=== PATIENT | female | born 1955 | race Caucasian/White ===

== ENCOUNTER 2020-07-08 12:03 | Outpatient (REF) | payer MEDICARE, SELFPAY | END 2020-07-08 12:04 | disposition home or self-care (01) | LOC: HO.HMGCLDS 12:03 | PROVIDERS: Visit Provider Internal Medicine | DX: Z20.822 Contact with and (suspected) exposure to COVID-19 (principal) | CPT/HCPCS: 36415; C9803; U0003 ==

== ENCOUNTER 2020-09-01 08:27 | Outpatient (REF) | payer MEDICARE, SELFPAY ==
[2020-09-01 11:29] LABS: MANUAL DIFF FLAG NO
[2020-09-01 11:37] LABS: Basophils Percent Auto 0.8 % (0-2); Eosinophils Absolute Auto 0.1 X10*3/uL (0.0-0.4); Eosinophils Percent Auto 1.4 % (0-4); Hematocrit 41.3 % (37-47); Hemoglobin 13.3 g/dl (12.0-16.0); Imm Gran Abs Auto 0.01 X10*3/uL (0.00-0.03); Imm Gran Pct Auto 0.2 % (0.0-0.4); Lymphocytes Absolute Auto 1.9 X10*3/uL (1.2-4.9); Lymphocytes Percent Auto 39.5 % (20-40); Mean Corpuscular HGB Conc 32.2 g/dl (31.0-35.0); Mean Corpuscular Hemoglobin 29.2 pg (27.0-33.0); Mean Corpuscular Volume 90.6 fL (80-98); Mean Platelet Volume 10.9 fL (9.4-12.3); Monocytes Absolute Auto 0.4 X10*3/uL (0.1-1.2); Monocytes Percent Auto 7.8 % (2-11); Neutrophils Absolute Auto 2.5 X10*3/uL (2.0-8.3); Neutrophils Percent Auto 50.3 % (45-73); Platelet Count 291 X10*3/uL (160-400); Red Blood Count 4.56 X10*6/uL (4.20-5.50); Red Cell Distribution Width 13.7 % (11.0-16.0); White Blood Count 4.9 X10*3/uL (4.8-10.8)
[2020-09-01 11:57] LABS: Anion Gap 11 (12-20); Blood Urea Nitrogen 14 mg/dL (9-16); Calcium 9.3 mg/dL (8.4-10.2); Carbon Dioxide 27 mmol/L (22-29); Chloride 106 mmol/L (96-108); Cholesterol 200 mg/dL; Estimated Glomerular Filt Rate > 60; Glucose Fasting 84 mg/dL (60-99); HDL Cholesterol 69 mg/dL; LDL Cholesterol Calculated 112 mg/dl; Potassium 4.3 mmol/L (3.3-5.1); Sodium 140 mmol/L (135-145); Triglycerides 96 mg/dL
[2020-09-06 06:41] LABS: Vitamin D 25-OH, D2 <4 ng/mL; Vitamin D 25-OH, D3 33 ng/mL; Vitamin D 25-OH, Total 33 ng/mL (30-100)
== END 2020-09-01 08:28 | disposition home or self-care (01) ==
LOC: HO.HMGCLDS 08:27
PROVIDERS: PCP Internal Medicine; Visit Provider Internal Medicine
DX: E55.9 Vitamin D deficiency, unspecified (principal); E78.9 Disorder of lipoprotein metabolism, unspecified; F33.9 Major depressive disorder, recurrent, unspecified; G89.29 Other chronic pain; I10 Essential (primary) hypertension; M54.9 Dorsalgia, unspecified; R42 Dizziness and giddiness; Z91.09 Other allergy status, other than to drugs and biological substances
CPT/HCPCS: 36415; 80048; 80061; 82306; 85025

== ENCOUNTER → 2020-11-08 09:42 | Outpatient (BNVA) | payer MEDICARE, SELFPAY | PROVIDERS: PCP Internal Medicine; Referring Provider Internal Medicine; Visit Provider Internal Medicine | DX: R06.02 Shortness of breath (principal); I10 Essential (primary) hypertension | CPT/HCPCS: 99202 ==

== ENCOUNTER → 2020-12-29 07:13 | Outpatient (REF) | payer MEDICARE, SELFPAY ==
--- NOTE | ~2020-12-29 | NM_ITS ---
EXERCISE MYOCARDIAL PERFUSION STUDY INDICATION: Shortness of breath, assess for coronary disease and ischemia TECHNIQUE: The patient was brought in for an exercise perfusion study on 12/29/2020. Patient performed exercise as per [place] protocol and was injected 25 mCi of sestamibi once target heart rate was achieved. Images were obtained using the SPECT gamma camera interlaced with the gating device. Images were obtained in supine position. Resting perfusion study was performed on 12/30/2020. Patient was administered 25 mCi of sestamibi intravenously at rest. Images were then obtained in supine position. Total DLP 97mGy-cm. Images were processed with the software and compared side to side in short axis, horizontal long axis and vertical long axis views. FINDINGS: Raw images were reviewed. The stress perfusion study showed no significant perfusion abnormality. Both uncorrected as well as CT attenuation corrected images were reviewed. The gated study shows normal LV systolic function with calculated LVEF of > 70%. LV cavity is normal in size. The gated study shows normal wall thickening and contraction of segments. Resting study shows no significant perfusion abnormality. Gating at rest reveals normal wall motion with ejection fraction at 68%. The findings are consistent with no reversible or fixed perfusion abnormality. NM/NM cardiolite stress test IMPRESSION: 1. Myocardial perfusion imaging study shows normal myocardial perfusion. No evidence of any ischemia or infarction. 2. Gated LVEF is > 70% during stress; 68% during rest. 3. Transient ischemic dilatation not present. EKG component of the test reported separately.
--- NOTE | 2020-12-29 07:15 | CA_ITS ---
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 The visually estimated ejection fraction is between 65-70%. - There is mild mitral valve regurgitation. - There is mild tricuspid valve regurgitation. Findings Left Ventricle Normal left ventricular cavity size. There is normal left ventricular wall thickness. The left ventricular systolic function is normal. The visually estimated ejection fraction is between 65-70%. There is no evidence of regional wall motion abnormalities. E/E prime ratio is between 8 and 15 consistent with indeterminate filling pressures. Evidence suggests grade I (mild) diastolic dysfunction. Right Ventricle Normal right ventricular cavity size and systolic function. Atria Both atria are normal in size. Aortic Valve There is a normal trileaflet aortic valve. There is no aortic valve stenosis. There is no aortic valve regurgitation. Mitral Valve The mitral valve appears normal. There is mild mitral valve regurgitation. There is no mitral valve stenosis. Pulmonic Valve The pulmonic valve was not well visualized. Tricuspid Valve Normal tricuspid valve structure. There is mild tricuspid valve regurgitation. The pulmonary artery systolic pressure is normal. Great Vessels The aortic annulus, sinuses of valsalva, and asc aorta are normal in size. Venous The inferior vena cava is normal in size and collapses greater than 50% with inspiration. Pericardium/Pleural There is no evidence of pericardial effusion. Prior Study Comparison No significant change compared to prior study dated: 01/07/2017. Measurements 2D Linear Measurements IVSd: 0.78 0.6-0.9/0.6-1.0 cm LVIDd: 4.05 3.9-5.3/4.2-5.9 cm LVIDd Index: 2.41 2.4-3.2/2.2-3.1 cm/m2 LVIDs: 2.18 2.0-3.6 cm LVPWd: 1.06 0.7-1.1 cm Ao Root: 3.00 2.1-3.5 cm LA Diam: 3.20 2.7-3.8/3.0-4.0 cm LAIDs Index: 1.90 1.5-2.3 cm/m2 LV Mass: 142.99 67-162/88-224 g LV Mass Index: 85.11 43-95/49-115 g/m2 LVOT Diam: 2.00 3.0+(-)1.3 cm 2D Systolic Function EF 4C: 67.10 >55% EF 2C: 68.30 >55% EF BiP: 67.80 >55% Mitral Valve MV Pk E: 0.99 MV PK A: 0.93 MV Decel Time: 140.00 E/A: 1.10 E'Lateral: 8.49 E'Medial: 6.53 E/E' Med: 15.10 E/E' Lat: 11.60 PHT: 41.00 MVA PHT: 5.37 Decel [place]: 7.08 Aortic Valve AoV Pk Surinder: 1.30 AoV Pk Grad: 7.00 AI Pk Surinder: 3.43 AI [place]: 1.17 LVOT LVOT Pk Surinder: 1.14 LVOT Mn Surinder: 0.74 LVOT VTI: 0.24 LVOT Pk Grad: 5.00 LVOT Mn Grad: 3.00 LVOT Diam: 2.00 LVOT Area: 3.14 Diastolic Function MV Pk E: 0.99 MV Pk A: 0.93 E/A: 1.10 E'Medial: 6.53 E/E' Med: 15.10 E' Laterial: 8.49 E/E' Lat: 11.60 Tricuspid Valve TR Pk Surinder: 2.39 TR Pk Grad: 23.00 RA Press: 3.00 RVSP: 26.00 Great Vessels Aorta Ao Root-2D: 3.00 2.0-3.7 cm Ao Asc: 3.30 2.1-3.4 cm Updated in Other Vendor System with Status of Final Ramana Starks MD electronically signed on 12/31/2020 12:02:03 PM with status of Final
--- NOTE | 2020-12-29 07:17 | CA_ITS ---
Acquisition Time: 2020-12-29 08:24:01 Total Exercise Time: 00:06:15 Test Indications: SOB Medications: AMIOLPINE Protocol: KASIA Max HR: 157 BPM 101% of Pred: 155 BPM Max BP: 152/088 mmHG Max Work Load: 7.3 METS Exercise stress test with exercise 6 min 15 sec of Kasia protocol, with mild sob, no chest discomfort, with occassional PAC and PVC in recovery, with normotensive response to exercise, without EKG changes meeting criteria for ischemia. Nuclear images pending. Test reviewed with Dr Starks. Referred By: Ramana Starks Overread By: CARLYLE CHOPRA
== END ==
LOC: HO.CARD 07:13
PROVIDERS: PCP Internal Medicine; Visit Provider Internal Medicine
DX: R06.02 Shortness of breath (principal)
CPT/HCPCS: 78452; 93017; 93306; A9500

== ENCOUNTER → 2021-01-05 09:53 | Outpatient (BNVA) | payer MEDICARE, SELFPAY | PROVIDERS: PCP Internal Medicine; Referring Provider Internal Medicine; Visit Provider Internal Medicine | DX: R06.02 Shortness of breath (principal); I10 Essential (primary) hypertension; Z79.899 Other long term (current) drug therapy | CPT/HCPCS: 99212 ==

== ENCOUNTER 2021-03-01 13:12 | Outpatient (REF) | payer MEDICARE, SELFPAY ==
--- NOTE | ~2021-03-01 | MM_ITS ---
EXAMINATION: MM SCREENING DIGITAL BREAST TOMOSYNTHESIS, BILATERAL CLINICAL INFORMATION: Screening. Asymptomatic. The lifetime risk of breast cancer based on the Tyrer-Cuzick Model is 6%. COMPARISON: Mammography: 09/22/2018, 01/23/2017, 10/29/2012 ([facility]) TECHNIQUE: Digital breast tomosynthesis is performed in both the craniocaudal and mediolateral oblique views along with computer-aided detection (CAD). Synthesized 2D images are generated from the tomosynthesis. FINDINGS: There are scattered areas of fibroglandular density (ACR BI-RADS breast composition Category b). There is small circumscribed nodule approximately 0.6 cm central upper left breast similar to prior exam and decreased in size from more remote prior outside mammography. Other smaller bilateral nodularity in are also decreased over time. There is no developing density or interval mass or architectural abnormality. No abnormal calcific lesions. The axilla and skin contours are unremarkable. MM/MM tomosynthesis screening BI IMPRESSION: No mammographic evidence of malignancy. ASSESSMENT: BI-RADS 2: Benign RECOMMENDATION: Routine annual mammography screening. This patient's information was entered into a reminder system with a target due date for their next mammogram.
--- NOTE | ~2021-03-01 | MM_ITS ---
EXAMINATION: BONE DENSITOMETRY CLINICAL INDICATION: Screening. COMPARISON: None (current study represents initial baseline exam). TECHNIQUE: Using a [employer] DXA System (software version: 13.1) manufactured by [employer], dual-energy x-ray absorptiometry was performed of the lumbar spine and left hip. The images are of good technical quality. Summary results are attached. FINDINGS: AP SPINE L1-L4: BMD 0.929 g/cm2, Z-score -0.7, T-score -2.1, osteopenia. LEFT FEMUR, NECK: BMD 0.752 g/cm2, Z-score -0.7, T-score -2.1, osteopenia. LEFT FEMUR, TOTAL: BMD 0.807 g/cm2, Z-score -0.5, T-score -1.6, osteopenia. IDENTIFIED RISK FACTORS: Menopause, history of fracture (adult). HISTORY OF FRACTURE: Spine/Trauma. No insufficiency fracture reported. MEDICATIONS: Vitamin D. MM/XR DEXA axial skeleton IMPRESSION: 1. DIAGNOSIS: Osteopenia based on the lowest T-score value of -2.1 in the lumbar spine and femur neck applying World Health Organization criteria. 2. 10-YEAR FRACTURE RISK PREDICTION, FRAX: Major osteoporotic fracture (clinical spine, forearm, hip or shoulder) 17.8%. Hip fracture 2.9%. 3. Treatment Recommendations: NOF guidelines recommend consideration for treatment in postmenopausal women and men age 50 and older presenting with the following: -A hip or vertebral (clinical or morphometric) fracture. -T-score less than or equal to -2.5 at the femoral neck or spine after appropriate evaluation to exclude secondary causes. -Low bone mass at the hip or spine and a 10-year fracture probability by FRAX of greater than or equal to 3% for hip fracture or greater than or equal to 20% for major osteoporotic fracture based on the [place] adapted WHO algorithm. 4. Other Recommendations: All treatment decisions require clinical judgment and consideration of individual patient factors, including patient preferences, comorbidities, previous drug use, risk factors not captured in the FRAX model (e.g. frailty, falls, vitamin D deficiency, increased bone turnover, interval significant decline in bone density) and possible under or overestimation of fracture risk by FRAX. Additional medical evaluation for secondary cause of low bone mineral density may be appropriate. FUTURE SCAN RECOMMENDATION: People with diagnosed cases of osteoporosis or at high risk for fracture should have regular bone mineral density tests. For patients eligible for Medicare, routine testing is allowed once every 2 years. The testing frequency can be increased to one year for patients who have rapidly progressing disease, those who are receiving or discontinuing medical therapy to restore bone mass, or have additional risk factors.
== END 2021-03-01 13:13 | disposition home or self-care (01) ==
LOC: HO.MAMMO 13:12
PROVIDERS: Visit Provider Internal Medicine
DX: Z12.31 Encounter for screening mammogram for malignant neoplasm of breast (principal); Z13.820 Encounter for screening for osteoporosis; M85.80 Other specified disorders of bone density and structure, unspecified site; Z78.0 Asymptomatic menopausal state; Z79.899 Other long term (current) drug therapy
CPT/HCPCS: 77063; 77067; 77080

== ENCOUNTER → 2021-03-20 14:35 | Outpatient (BNVA) | payer MEDICARE, SELFPAY | PROVIDERS: PCP Internal Medicine; Referring Provider Internal Medicine; Visit Provider Nurse Practitioner Family | DX: Z12.11 Encounter for screening for malignant neoplasm of colon (principal); K21.9 Gastro-esophageal reflux disease without esophagitis; K59.00 Constipation, unspecified; K58.9 Irritable bowel syndrome, unspecified | CPT/HCPCS: 99202 ==

== ENCOUNTER 2021-03-27 07:47 | Outpatient (REF) | payer MEDICARE, SELFPAY ==
[2021-03-27 11:19] LABS: MANUAL DIFF FLAG NO
[2021-03-27 11:24] LABS: Basophils Percent Auto 0.3 % (0-2); Eosinophils Absolute Auto 0.1 X10*3/uL (0.0-0.4); Eosinophils Percent Auto 1.1 % (0-4); Hemoglobin 13.1 g/dl (12.0-16.0); Imm Gran Abs Auto 0.02 X10*3/uL (0.00-0.03); Imm Gran Pct Auto 0.3 % (0.0-0.4); Lymphocytes Absolute Auto 2.3 X10*3/uL (1.2-4.9); Lymphocytes Percent Auto 36.2 % (20-40); Mean Corpuscular HGB Conc 32.8 g/dl (31.0-35.0); Mean Corpuscular Hemoglobin 28.4 pg (27.0-33.0); Mean Corpuscular Volume 86.8 fL (80-98); Mean Platelet Volume 10.5 fL (9.4-12.3); Monocytes Absolute Auto 0.5 X10*3/uL (0.1-1.2); Neutrophils Absolute Auto 3.4 X10*3/uL (2.0-8.3); Neutrophils Percent Auto 54.1 % (45-73); Platelet Count 337 X10*3/uL (160-400); Red Blood Count 4.61 X10*6/uL (4.20-5.50); Red Cell Distribution Width 14.8 % (11.0-16.0); White Blood Count 6.2 X10*3/uL (4.8-10.8)
[2021-03-27 11:43] LABS: Alanine Aminotransferase 19 U/L (0-31); Albumin Level 4.1 g/dL (3.5-5.0); Alkaline Phosphatase 95 U/L (39-117); Anion Gap 12 (12-20); Aspartate Amino Transferase 16 U/L (5-31); Bilirubin Total 0.4 mg/dL (0.0-1.0); Blood Urea Nitrogen 16 mg/dL (9-16); Calcium 9.7 mg/dL (8.4-10.2); Carbon Dioxide 24 mmol/L (22-29); Chloride 108 mmol/L (96-108); Estimated Glomerular Filt Rate > 60; Glucose Random 86 mg/dL (60-115); Potassium 4.3 mmol/L (3.3-5.1); Sodium 140 mmol/L (135-145); Total Protein 6.9 g/dL (6.5-8.0)
[2021-03-30 14:11] LABS: Transglutaminase Ab IgG <1.0 U/mL; Transglutaminase IgA <1.0 U/mL
== END 2021-03-27 07:48 | disposition home or self-care (01) ==
LOC: HO.HMGCLDS 07:47
PROVIDERS: PCP Internal Medicine; Visit Provider Nurse Practitioner Family
DX: R10.11 Right upper quadrant pain (principal); R14.0 Abdominal distension (gaseous); E78.9 Disorder of lipoprotein metabolism, unspecified; M54.9 Dorsalgia, unspecified; G89.29 Other chronic pain; F33.9 Major depressive disorder, recurrent, unspecified; I10 Essential (primary) hypertension; R42 Dizziness and giddiness; Z91.09 Other allergy status, other than to drugs and biological substances
CPT/HCPCS: 36415; 80053; 83516; 85025

== ENCOUNTER → 2021-04-24 14:51 | Outpatient (BNVA) | payer MEDICARE, SELFPAY | PROVIDERS: PCP Internal Medicine; Referring Provider Internal Medicine; Visit Provider Nurse Practitioner Family | DX: Z12.11 Encounter for screening for malignant neoplasm of colon (principal); K58.2 Mixed irritable bowel syndrome; K21.9 Gastro-esophageal reflux disease without esophagitis | CPT/HCPCS: 99212 ==

== ENCOUNTER 2021-09-12 08:18 | Outpatient (REF) | payer MEDICARE, SELFPAY ==
[2021-09-12 11:33] LABS: MANUAL DIFF FLAG NO
[2021-09-12 11:35] LABS: Basophils Absolute Auto 0.1 X10*3/uL (0.0-0.2); Eosinophils Absolute Auto 0.1 X10*3/uL (0.0-0.4); Eosinophils Percent Auto 2.4 % (0-4); Hemoglobin 13.8 g/dl (12.0-16.0); Imm Gran Abs Auto 0.02 X10*3/uL (0.00-0.03); Imm Gran Pct Auto 0.4 % (0.0-0.4); Lymphocytes Absolute Auto 1.9 X10*3/uL (1.2-4.9); Lymphocytes Percent Auto 37.3 % (20-40); Mean Corpuscular HGB Conc 32.1 g/dl (31.0-35.0); Mean Corpuscular Hemoglobin 28.5 pg (27.0-33.0); Mean Corpuscular Volume 88.7 fL (80.0-98.0); Mean Platelet Volume 10.5 fL (9.4-12.3); Monocytes Absolute Auto 0.4 X10*3/uL (0.1-1.2); Monocytes Percent Auto 8.3 % (2-11); Neutrophils Absolute Auto 2.6 x10*3/uL (2.0-8.3); Neutrophils Percent Auto 50.6 % (45-73); Platelet Count 316 X10*3/uL (160-400); Red Blood Count 4.85 X10*6/uL (4.20-5.50); Red Cell Distribution Width 14.8 % (11.0-16.0); White Blood Count 5.1 X10*3/uL (4.8-10.8)
[2021-09-12 12:08] LABS: Alanine Aminotransferase 16 U/L (0-31); Albumin Level 4.1 g/dL (3.5-5.0); Alkaline Phosphatase 91 U/L (39-117); Anion Gap 12 (12-20); Aspartate Amino Transferase 13 U/L (5-31); Bilirubin Total 0.6 mg/dL (0.0-1.0); Blood Urea Nitrogen 13 mg/dL (9-16); Calcium 9.9 mg/dL (8.4-10.2); Carbon Dioxide 24 mmol/L (22-29); Chloride 107 mmol/L (96-108); Cholesterol 199 mg/dL; Estimated Glomerular Filt Rate > 60; Glucose Fasting 90 mg/dL (60-99); HDL Cholesterol 68 mg/dL; LDL Cholesterol Calculated 107 mg/dl; Potassium 4.3 mmol/L (3.3-5.1); Sodium 139 mmol/L (135-145); Triglycerides 121 mg/dL
[2021-09-16 13:01] LABS: Vitamin D 25-OH, D2 <4 ng/mL; Vitamin D 25-OH, D3 28 ng/mL; Vitamin D 25-OH, Total 28 ng/mL (30-100)
== END 2021-09-12 08:19 | disposition home or self-care (01) ==
LOC: HO.HMGCLDS 08:18
PROVIDERS: Visit Provider Internal Medicine
DX: E78.9 Disorder of lipoprotein metabolism, unspecified (principal); I10 Essential (primary) hypertension; R42 Dizziness and giddiness; R09.81 Nasal congestion; Z91.09 Other allergy status, other than to drugs and biological substances
CPT/HCPCS: 36415; 80053; 80061; 82306; 85025

== ENCOUNTER 2021-10-10 07:31 | Day surgery (SDC) | payer MEDICARE, SELFPAY ==
--- NOTE | 2021-10-06 08:58 | P.CONAN_ITS ---
Documented by User: Filomena Herrera NP 10/18/21 09:08 HPI - Anesthesia Eval Consult details Narrative: 66yo F for Upper Endoscopy and Colonoscopy PMFSH Active Problems Active Problems: All Active Problems (Updated 08/11/21 @ 13:42 by Janelle Orozco MD) Chronic nasal congestion (Acute) Dyspnea (Acute) Menopause (Acute) Breast screening (Acute) Colon cancer screening (Acute) Shortness of breath (Acute) Lipid disorder (Acute) Vitamin D deficiency (Acute) Back pain, chronic (Acute) Environmental allergies (Acute) Depression, major, recurrent (Acute) Hypertension, essential (Acute) Chronic vertigo (Acute) Past Medical History Medical History Back pain, chronic Chronic nasal congestion Chronic vertigo Depression, major, recurrent Environmental allergies Hypertension, essential Lipid disorder Vitamin D deficiency Family History Family History Father No problems noted. Mother HTN (hypertension) Brother No problems noted. Brother No problems noted. Sister No problems noted. Son No problems noted. Surgical History Surgical History Endometrial cyst of ovary History of removal of skin mole History of tonsillectomy Social History Social History Housing: House Patient Tobacco Use Status: Former Tobacco user Quit Date: age 30 e-Cigarette/Vaping Use: Never Used Current occupational status: employed Meds Allergies Allergy/AdvReac Type Severity Reaction Status Date / Time azithromycin Allergy Unknown hives Verified 10/02/21 13:44 [Zithromax Z-Jan] hydrochlorothiazide Allergy Unknown low K+ Verified 10/02/21 13:44 lisinopril Allergy Unknown cough Verified 10/02/21 13:44 Home Medications Medication Instructions Recorded Confirmed Last Taken Type fluticasone propionate 50 1 spray INTRANASAL DAILY 04/12/20 10/02/21 Unknown History mcg/actuation nasal spray,suspension meclizine 12.5 mg tablet mg PO 04/12/20 08/11/21 Unknown History Exam Exam Date and Time: October 06, 2021 0858 Pertinent Lab Results Pertinent Lab Results: Laboratory Tests 09/12/21 09/12/21 08:26 08:26 WBC 5.1 Hgb 13.8 Hct 43.0 Plt Count 316 Sodium 139 Potassium 4.3 Chloride 107 Carbon Dioxide 24 BUN 13 Creatinine 0.83 Narrative Narrative: EKG 12/2020 sinus at 63/min; minimal voltage criteria for frequent hypertrophy and poor R- wave progression.? Echocardiogram 12/2020 normal LVEF, 65-70%, mild diastolic dysfunction and mild mitral/tricuspid regurgitation.? exercise stress test 12/2020 able to exercise for 6 minutes and 15 seconds on [place] protocol with mild shortness of breath but no EKG evidence of ischemia.? The perfusion component was unremarkable. Assessment and Plan Assessment Anesthesia Assessment: Chart Reviewed Documented by User: Willa Jacques MD 10/10/21 07:44 [facility] Past Medical History Medical History Back pain, chronic Chronic nasal congestion Chronic vertigo Depression, major, recurrent Environmental allergies Hypertension, essential Lipid disorder Vitamin D deficiency Functional capacity: independent ambulation Patient : No Family History Family History Father No problems noted. Mother HTN (hypertension) Brother No problems noted. Brother No problems noted. Sister No problems noted. Son No problems noted. Family history of problems with anesthesia: No Surgical History Surgical History Endometrial cyst of ovary History of removal of skin mole History of tonsillectomy History of Problems with Anesthesia: No Social History Social History Housing: House Patient Tobacco Use Status: Former Tobacco user Quit Date: age 30 e-Cigarette/Vaping Use: Never Used Current occupational status: employed Meds Allergies Allergy/AdvReac Type Severity Reaction Status Date / Time azithromycin Allergy Unknown hives Verified 10/02/21 13:44 [Zithromax Z-Jan] hydrochlorothiazide Allergy Unknown low K+ Verified 10/02/21 13:44 lisinopril Allergy Unknown cough Verified 10/02/21 13:44 Home Medications Medication Instructions Recorded Confirmed Last Taken Type fluticasone propionate 50 1 spray INTRANASAL DAILY 04/12/20 10/02/21 Unknown History mcg/actuation nasal spray,suspension meclizine 12.5 mg tablet mg PO 04/12/20 08/11/21 Unknown History Exam Airway Mallampati Class: II Assessment and Plan Final Anesthetic Review Family History of Problems with Anesthesia: No History of Problems with Anesthesia: No
[2021-10-10 08:10] VITALS: BMI 27.9
[2021-10-10 08:23] VITALS: BP 119/57; PULSE 59; RESP 16; TEMP 36.4; O2SAT 95
[2021-10-10] MEDS: Lactated Ringers 1,000 ML 100 ML IVCONT (08:44)
--- NOTE | 2021-10-10 09:18 | MHC.SHP ---
Pre-Procedural Eval Section A Date of Service: 10/10/21 Section B Chief Complaint: Screening, GERD Relevant Family History (Specify if Yes): No Relevant Social History: None Present Medications: see Short Stay Collaborative assessment Medical History: Significant History (Back pain, chronic Chronic nasal congestion Chronic vertigo Depression, major, recurrent Environmental allergies Hypertension, essential Lipid disorder Vitamin D deficiency) History of Previous Operations: Relevant previous surgery/procedure and date(s) (Endometrial cyst of ovary History of removal of skin mole History of tonsillectomy) Allergies: Allergies Allergy/AdvReac Type Severity Reaction Status Date / Time azithromycin Allergy Unknown hives Verified 10/02/21 13:44 [Zithromax Z-Jan] hydrochlorothiazide Allergy Unknown low K+ Verified 10/02/21 13:44 lisinopril Allergy Unknown cough Verified 10/02/21 13:44 Review of Systems Sugical H&P ROS: Negative: Constitution, Cardiovascular, Respiratory, Neurological, Psychiatric, Hem-Onc, Allergic/Immunologic, Gastrointestinal, Genitourinary, Musculoskeletal, Integumentary, Endocrine and Eyes/Ears/Nose/Throat Exam Surgical H&P Exam: Normal: HEENT, Normal: Heart, Normal: Lungs, Normal: Extremities, Normal: Abdomen, Normal: Skin and Normal: Neurological Plan Diagnosis/Plan: Unchanged I have reviewed the history and physical and performed a pertinent physical examination on my patient. No changes have occurred unless specified.
--- NOTE | 2021-10-10 09:25 | P.BOP_ITS ---
Brief Operative Note Date of Service: 10/10/21 Pre-op diagnosis: GERD, colon screening Post-op diagnosis: same Procedure: see op note Surgeon: Adela Cardoza MD Anesthesia: MAC Was an Service Center Specialist used for this Procedure?: No Estimated blood loss (mL): 0 Condition: stable Disposition: PACU
--- NOTE | 2021-10-10 09:39 | W.PM.OPN ---
Operative Note Operative Note Date of Service: 10/10/21 Narrative: Operative Information Procedure Description: EGD, Colonoscopy Indication: GERD and screening colonoscopy Anesthesia: MAC FLEXIBLE TRANSORAL UPPER GASTROINTESTINAL ENDOSCOPY AND COLONOSCOPY PROCEDURE NOTE UPPER ENDOSCOPY Consent: Indications for the procedure and potential complications of bleeding, perforation, reaction to medications and missed diagnosis were discussed with the patient and informed consent was obtained. Instrument: Olympus GIF H 190 J mid size upper endoscope Monitoring: Vital signs and clinical assessment, continuous EKG monitoring, Pulse oximetry, Carbon Dioxide monitoring and blood pressure monitoring were done throughout the procedure. Procedure: The patient was placed in the left lateral decubitis position and pre-procedure medications were administered and a bite block was placed. The endoscope was inserted into the mouth and advanced under direct vision to the third part of duodenum. A careful inspection was made as the upper endoscope was withdrawn including a retroflexed examination of the proximal stomach; Findings and interventions are described below. Findings: Larynx:normal Esophagus: GE junction at 31 cm, diaphragm hiatus at 35 cm, with 4 cm fixed hiatal hernia-irregular Z line with esophagitis noted, bx taken Stomach: Patchy erythema. Biopsies were obtained. Grade 2 flap valve on retroflexed examination of the cardia. Duodenum: Normal bulb and descending duodenum, Intervention: Biopsies as noted above COLONOSCOPY Instrument: Olympus variable stiffness pediatric scope 190L Colonoscopy Monitoring: Vital signs and clinical assessment, continuous EKG monitoring, Pulse oximetry, Carbon Dioxide monitoring and blood pressure monitoring were done throughout the procedure. Colon withdrawal time was 17 minutes. Procedure: The patient was placed in the left lateral decubitis position and pre-procedure medications were administered. After a digital rectal examination of the ano-rectum, the video colonoscope was inserted into the rectum and advanced through the colon to the cecum/TI. The colonoscope was slowly withdrawn in a retrograde panoramic fashion and the colon mucosa was carefully examined including a retroflexed view of the rectum. Findings and interventions are described below. Procedure Difficulty: moderate Findings: Terminal Ileum-normal Right sided retroflexion was normal Cecum:normal Ascending Colon: mild melanosis coli Transverse Colon -normal Descending Colon:normal Sigmoid Colon: mild diverticulosis noted Rectum: Retroflexion with small internal hemorrhoids, grade I Anorectum - normal Colon preparation: [place] Bowel Preparation Scale Right colon; 2 Transverse colon: 2 Left colon; 1 (0 = Unprepared colon segment with mucosa not seen due to solid stool that cannot be cleared. 1 = Portion of mucosa of the colon segment seen, but other areas of the colon segment not well seen due to staining, residual stool and/or opaque liquid. 2 = Minor amount of residual staining, small fragments of stool and/or opaque liquid, but mucosa of colon segment seen well. 3 = Entire mucosa of colon segment seen well with no residual staining, small fragments of stool or opaque liquid) Impression and Post Procedure Diagnosis: Endoscopy Findings: hiatal hernia esophagitis gastritis Colonoscopy Findings: internal hemorrhoids diverticular disease Plan: Await Pathology results Repeat Colonoscopy in 5 years due to left sided prep or earlier if clinically indicated High fiber diet leaflet avoid straining at stool, epsom salts and sitz bath, anusol supps or cream may benefit from surgical repair of hiatal hernia Above findings were reviewed with the patient and relevant handouts were provided if indicated.
--- NOTE | 2021-10-10 10:04 | P.CONAN_ITS ---
[facility] Active Problems Active Problems: All Active Problems (Updated 08/11/21 @ 13:42 by Janelle Orozco MD) Chronic nasal congestion (Acute) Dyspnea (Acute) Menopause (Acute) Breast screening (Acute) Colon cancer screening (Acute) Shortness of breath (Acute) Lipid disorder (Acute) Vitamin D deficiency (Acute) Back pain, chronic (Acute) Environmental allergies (Acute) Depression, major, recurrent (Acute) Hypertension, essential (Acute) Chronic vertigo (Acute) Past Medical History Medical History Back pain, chronic Chronic nasal congestion Chronic vertigo Depression, major, recurrent Environmental allergies Hypertension, essential Lipid disorder Vitamin D deficiency Functional capacity: independent ambulation Patient : No Family History Family History Father No problems noted. Mother HTN (hypertension) Brother No problems noted. Brother No problems noted. Sister No problems noted. Son No problems noted. Family history of problems with anesthesia: No Surgical History Surgical History Endometrial cyst of ovary History of removal of skin mole History of tonsillectomy History of Problems with Anesthesia: No Social History Social History Housing: House Patient Tobacco Use Status: Former Tobacco user Quit Date: age 30 e-Cigarette/Vaping Use: Never Used Use of substances other than those prescribed or required for medical reasons: No Are you DNR?: No Advance Directives: No Advance Directives Information Provided: Yes Patient : No Current occupational status: employed Meds Allergies Allergy/AdvReac Type Severity Reaction Status Date / Time azithromycin Allergy Unknown hives Verified 10/02/21 13:44 [Zithromax Z-Jan] hydrochlorothiazide Allergy Unknown low K+ Verified 10/02/21 13:44 lisinopril Allergy Unknown cough Verified 10/02/21 13:44 Active Medications: Current Medications Lactated Ringer's (Lr) 1,000 mls @ 100 mls/hr IVCONT .Q10H LUCA Last Admin: 10/10/21 08:44 Dose: 100 mls/hr Documented by: Home Medications Medication Instructions Recorded Confirmed Last Taken Type fluticasone propionate 50 1 spray INTRANASAL DAILY 04/12/20 10/02/21 Unknown History mcg/actuation nasal spray,suspension meclizine 12.5 mg tablet mg PO 04/12/20 08/11/21 Unknown History Exam Exam Date and Time: October 10, 2021 1004 Height,Weight and Vital Signs: Height 5 ft 1 in Weight 67.132 kg Last Vital Signs Temp 97.6 F 10/10/21 08:23 Pulse 59 10/10/21 08:23 Resp 16 10/10/21 08:23 BP 119/57 L 10/10/21 08:23 Pulse Ox 95 10/10/21 08:23 Airway Mallampati Class: III TM Dist: >3cm Neck ROM: Full Heart: RRR Lungs: CTA Assessment and Plan Final Anesthetic Review Family History of Problems with Anesthesia: No History of Problems with Anesthesia: No ASA Class: II Final Preanesthetic Review: No Changes in Pt Med Stat, Meds/Allgs Chart Reviewed and Consent Obtained/Reviewed Patient Risk: Low Procedure Risk: Low Anesthetic Plan Anesthetic Plan: MAC: Disposition: Standard PACU
[2021-10-10 10:12] VITALS: BP 96/42; PULSE 62; RESP 16; TEMP 36.8; O2SAT 95
--- NOTE | 2021-10-10 10:17 | HO.POSTANES ---
Post Anesthesia Evaluation Post Anesthesia Evaluation Vital Signs: Vital Signs Temp Pulse Resp BP Pulse Ox 10/10/21 08:23 97.6 F 59 16 119/57 L 95 Anesthesia: Monitored Mental Status: Awake Pain Control: Satisfactory Nausea/Vomiting: None Hydration: Adequate Anesthesia-Related Issues: No Anes. Related Issues
[2021-10-10 10:26] VITALS: BP 115/65; PULSE 68; RESP 16; O2SAT 95
[2021-10-10 10:46] VITALS: BP 125/56; PULSE 60; RESP 16; TEMP 36.8; O2SAT 98
== END 2021-10-10 11:31 | disposition home or self-care (01) ==
PROVIDERS: PCP Internal Medicine; Visit Provider Internal Medicine Gastroenterology
PROC: (CPT 43239; principal; 2021-10-10 09:20)
DX: Z12.11 Encounter for screening for malignant neoplasm of colon (principal); K57.30 Diverticulosis of large intestine without perforation or abscess without bleeding; K63.89 Other specified diseases of intestine; K64.0 First degree hemorrhoids; K58.2 Mixed irritable bowel syndrome; K21.9 Gastro-esophageal reflux disease without esophagitis; K29.50 Unspecified chronic gastritis without bleeding; K20.80 Other esophagitis without bleeding; K44.9 Diaphragmatic hernia without obstruction or gangrene; I10 Essential (primary) hypertension; E55.9 Vitamin D deficiency, unspecified; G89.29 Other chronic pain; M54.9 Dorsalgia, unspecified; F33.9 Major depressive disorder, recurrent, unspecified; R42 Dizziness and giddiness; Z79.51 Long term (current) use of inhaled steroids; Z79.899 Other long term (current) drug therapy; Z91.09 Other allergy status, other than to drugs and biological substances; Z88.1 Allergy status to other antibiotic agents; Z88.8 Allergy status to other drugs, medicaments and biological substances; Z87.891 Personal history of nicotine dependence
CPT/HCPCS: 43239; G0121; 88305; 88342

== ENCOUNTER → 2021-10-24 10:42 | Outpatient (BNVA) | payer MEDICARE, SELFPAY | PROVIDERS: PCP Internal Medicine; Referring Provider Internal Medicine; Visit Provider Nurse Practitioner Family | DX: K22.70 Barrett's esophagus without dysplasia (principal); K21.00 Gastro-esophageal reflux disease with esophagitis, without bleeding; K59.04 Chronic idiopathic constipation; K58.2 Mixed irritable bowel syndrome | CPT/HCPCS: 99212 ==

== ENCOUNTER → 2021-12-28 09:39 | Outpatient (BNVA) | payer MEDICARE, SELFPAY | PROVIDERS: PCP Internal Medicine; Referring Provider Internal Medicine; Visit Provider Internal Medicine | DX: R06.02 Shortness of breath (principal); I11.9 Hypertensive heart disease without heart failure; I38 Endocarditis, valve unspecified | CPT/HCPCS: 93005; 99212 ==

== ENCOUNTER 2022-01-22 07:40 | Outpatient (REF) | payer MEDICARE, SELFPAY ==
[2022-01-22 11:59] LABS: Anion Gap 13 (12-20); Blood Urea Nitrogen 15 mg/dL (9-16); Calcium 9.9 mg/dL (8.4-10.2); Carbon Dioxide 23 mmol/L (22-29); Chloride 107 mmol/L (96-108); Estimated Glomerular Filt Rate > 60; Glucose Random 88 mg/dL (60-115); Potassium 4.3 mmol/L (3.3-5.1); Sodium 139 mmol/L (135-145)
== END 2022-01-22 07:41 | disposition home or self-care (01) ==
LOC: HO.HMGCLDS 07:40
PROVIDERS: Absent Provider Internal Medicine; PCP Internal Medicine; Visit Provider Internal Medicine
DX: R06.02 Shortness of breath (principal)
CPT/HCPCS: 36415; 80048

== ENCOUNTER → 2022-04-24 08:42 | Outpatient (BNVA) | payer MEDICARE, SELFPAY | PROVIDERS: PCP Internal Medicine; Visit Provider Nurse Practitioner Family | DX: K22.70 Barrett's esophagus without dysplasia (principal); K58.2 Mixed irritable bowel syndrome; K21.9 Gastro-esophageal reflux disease without esophagitis | CPT/HCPCS: 99212 ==

== ENCOUNTER → 2022-05-03 08:43 | Outpatient (BNVA) | payer MEDICARE, SELFPAY | PROVIDERS: PCP Internal Medicine; Referring Provider Internal Medicine; Visit Provider Internal Medicine | DX: R06.02 Shortness of breath (principal); I10 Essential (primary) hypertension; I51.89 Other ill-defined heart diseases; I38 Endocarditis, valve unspecified | CPT/HCPCS: 99212 ==

== ENCOUNTER 2022-05-08 08:37 | Outpatient (REF) | payer MEDICARE, SELFPAY ==
[2022-05-08 11:37] LABS: MANUAL DIFF FLAG NO
[2022-05-08 11:53] LABS: Basophils Percent Auto 0.4 % (0-2); Eosinophils Absolute Auto 0.1 X10*3/uL (0.0-0.4); Hematocrit 42.8 % (37.0-47.0); Hemoglobin 13.6 g/dl (12.0-16.0); Imm Gran Abs Auto 0.01 X10*3/uL (0.00-0.03); Imm Gran Pct Auto 0.2 % (0.0-0.4); Lymphocytes Absolute Auto 1.8 X10*3/uL (1.2-4.9); Lymphocytes Percent Auto 32.9 % (20-40); Mean Corpuscular HGB Conc 31.8 g/dl (31.0-35.0); Mean Corpuscular Hemoglobin 28.7 pg (27.0-33.0); Mean Corpuscular Volume 90.3 fL (80.0-98.0); Mean Platelet Volume 10.5 fL (9.4-12.3); Monocytes Absolute Auto 0.4 X10*3/uL (0.1-1.2); Monocytes Percent Auto 7.9 % (2-11); Neutrophils Absolute Auto 3.1 x10*3/uL (2.0-8.3); Neutrophils Percent Auto 56.6 % (45-73); Platelet Count 281 X10*3/uL (160-400); Red Blood Count 4.74 X10*6/uL (4.20-5.50); Red Cell Distribution Width 13.7 % (11.0-16.0); White Blood Count 5.4 X10*3/uL (4.8-10.8)
[2022-05-08 12:07] LABS: Alanine Aminotransferase 18 U/L (0-31); Albumin Level 4.1 g/dL (3.5-5.0); Alkaline Phosphatase 92 U/L (39-117); Anion Gap 12 (12-20); Aspartate Amino Transferase 15 U/L (5-31); Bilirubin Total 0.3 mg/dL (0.0-1.0); Blood Urea Nitrogen 9 mg/dL (9-16); Calcium 9.5 mg/dL (8.4-10.2); Carbon Dioxide 26 mmol/L (22-29); Chloride 106 mmol/L (96-108); Cholesterol 187 mg/dL; Estimated Glomerular Filt Rate > 60; Glucose Fasting 88 mg/dL (60-99); HDL Cholesterol 57 mg/dL; LDL Cholesterol Calculated 101 mg/dl; Potassium 4.2 mmol/L (3.3-5.1); Sodium 140 mmol/L (135-145); Total Protein 6.7 g/dL (6.5-8.0); Triglycerides 146 mg/dL
== END 2022-05-08 08:38 | disposition home or self-care (01) ==
LOC: HO.HMGCLDS 08:37
PROVIDERS: PCP Internal Medicine; Visit Provider Internal Medicine
DX: E78.9 Disorder of lipoprotein metabolism, unspecified (principal); I10 Essential (primary) hypertension; R42 Dizziness and giddiness; Z91.09 Other allergy status, other than to drugs and biological substances
CPT/HCPCS: 36415; 80053; 80061; 85025

== ENCOUNTER 2022-07-14 09:22 | Outpatient (REF) | payer MEDICARE, SELFPAY ==
[2022-07-14 12:11] LABS: Influenza A PCR NEGATIVE (Negative); Influenza B PCR NEGATIVE (Negative); Resp Syncy Virus RNA Qual PCR NEGATIVE (Negative); SARS COV2 PCR INHOUSE NEGATIVE (Negative)
== END 2022-07-14 09:23 | disposition home or self-care (01) ==
LOC: HO.LAB 09:22
PROVIDERS: Visit Provider Nurse Practitioner Acute Care
DX: Z20.822 Contact with and (suspected) exposure to COVID-19 (principal); R19.7 Diarrhea, unspecified; R68.89 Other general symptoms and signs
CPT/HCPCS: 0241U

== ENCOUNTER 2022-09-25 06:33 | Day surgery (SDC) | payer MEDICARE, SELFPAY ==
[2022-09-19 14:48] VITALS: BMI 28.7
[2022-09-25 07:14] VITALS: BP 113/54; PULSE 55; RESP 16; TEMP 36.3; O2SAT 96
[2022-09-25] MEDS: Lactated Ringers 1,000 ML 50 ML IVCONT (07:21)
--- NOTE | 2022-09-25 08:31 | MHC.SHP ---
Pre-Procedural Eval Section A Date of Service: 09/25/22 Section B Chief Complaint: hx of barretts esophagus Relevant Family History (Specify if Yes): No Relevant Social History: None Present Medications: see Short Stay Collaborative assessment Medical History: Significant History (Back pain, chronic Seymour esophagus Chronic nasal congestion Chronic vertigo Depression, major, recurrent Environmental allergies Hypertension, essential Lipid disorder Vitamin D deficiency) History of Previous Operations: Relevant previous surgery/procedure and date(s) (Endometrial cyst of ovary History of esophagogastroduodenoscopy (EGD) History of removal of skin mole History of tonsillectomy Hx of colonoscopy) Allergies: Allergies Allergy/AdvReac Type Severity Reaction Status Date / Time azithromycin Allergy Unknown hives Verified 09/19/22 12:40 [Zithromax Z-Jan] hydrochlorothiazide Allergy Unknown low K+ Verified 09/19/22 12:40 lisinopril Allergy Unknown cough Verified 09/19/22 12:40 Review of Systems Sugical H&P ROS: Negative: Constitution, Cardiovascular, Respiratory, Neurological, Psychiatric, Hem-Onc, Allergic/Immunologic, Gastrointestinal, Genitourinary, Musculoskeletal, Integumentary, Endocrine and Eyes/Ears/Nose/Throat Exam Surgical H&P Exam: Normal: HEENT, Normal: Heart, Normal: Lungs, Normal: Extremities, Normal: Abdomen, Normal: Skin and Normal: Neurological Plan Diagnosis/Plan: Unchanged I have reviewed the history and physical and performed a pertinent physical examination on my patient. No changes have occurred unless specified. Time Spent With Patient Time: Total time managing care of this patient today ____ minutes.
--- NOTE | 2022-09-25 08:36 | W.PM.OPN ---
Operative Note Operative Note Date of Service: 09/25/22 Narrative: Procedure Description: EGD Indication: hx of Barretts esophagus Anesthesia: MAC FLEXIBLE TRANSORAL UPPER GASTROINTESTINAL ENDOSCOPY UPPER ENDOSCOPY Consent: Indications for the procedure and potential complications of bleeding, perforation, reaction to medications and missed diagnosis were discussed with the patient and informed consent was obtained. Instrument: Olympus GIF H 190 J mid size upper endoscope Monitoring: Vital signs and clinical assessment, continuous EKG monitoring, Pulse oximetry, Carbon Dioxide monitoring and blood pressure monitoring were done throughout the procedure. Procedure: The patient was placed in the left lateral decubitis position and pre-procedure medications were administered and a bite block was placed. The endoscope was inserted into the mouth and advanced under direct vision to the third part of duodenum. A careful inspection was made as the upper endoscope was withdrawn including a retroflexed examination of the proximal stomach; Findings and interventions are described below. Findings: Larynx:normal Esophagus: GE junction at 31? cm, diaphragm hiatus at 35 cm, with 4 cm fixed hiatal hernia-schatzki ring noted. Appearances compared to prior much improved, brushings taken from GEJ for WATS and then biopsies taken. minimal erythema noted around GEJ. Stomach: Normal mucosa. Grade 2 flap valve on retroflexed examination of the cardia. Duodenum: Normal bulb and descending duodenum, Intervention: Biopsies as noted above, brushings Impression/Findings: schatzki ring hiatal hernia possibly regressed barretts PLAN: cont with PPI for the meantime, can maybe come down on dose depending on results if neg for Barretts then will not need further surveillance
[2022-09-25 09:15] VITALS: BP 104/60; PULSE 75; RESP 18; TEMP 36.1; O2SAT 94
[2022-09-25 09:30] VITALS: BP 117/60; PULSE 59; RESP 18; TEMP 36.2; O2SAT 99
--- NOTE | 2022-09-25 09:51 | HO.ANESPROP2 ---
[facility] Active Problems Active Problems: All Active Problems (Updated 07/14/22 @ 09:43 by Rosenda Kidd CNP) Flu-like symptoms (Acute) Diarrhea (Acute) Valvular heart disease (Acute) Diastolic dysfunction (Acute) History of skin cancer (Acute) Hiatal hernia (Acute) Seymour esophagus (Acute) Chronic nasal congestion (Acute) Dyspnea (Acute) Menopause (Acute) Breast screening (Acute) Colon cancer screening (Acute) Shortness of breath (Acute) Lipid disorder (Acute) Vitamin D deficiency (Acute) Back pain, chronic (Acute) Environmental allergies (Acute) Depression, major, recurrent (Acute) Hypertension, essential (Acute) Chronic vertigo (Acute) Past Medical History Medical History Back pain, chronic Seymour esophagus Chronic nasal congestion Chronic vertigo Depression, major, recurrent Environmental allergies Hypertension, essential Lipid disorder Vitamin D deficiency Family History Family History Father No problems noted. Mother HTN (hypertension) Brother No problems noted. Brother No problems noted. Sister No problems noted. Son No problems noted. Family history of problems with anesthesia: No Surgical History Surgical History Endometrial cyst of ovary History of esophagogastroduodenoscopy (EGD) History of removal of skin mole History of tonsillectomy Hx of colonoscopy History of Problems with Anesthesia: No Social History Social History Housing: House Patient Tobacco Use Status: Former Tobacco user Quit Date: age 30 e-Cigarette/Vaping Use: Never Used Use of substances other than those prescribed or required for medical reasons: No Are you DNR?: No Advance Directives: No Advance Directives Information Provided: Yes Recently lost weight without trying: No Nutrition Risks: No Nutritional Risk Current occupational status: employed Cognitive needs: No Hearing needs: No Vision needs: Yes Meds Allergies Allergy/AdvReac Type Severity Reaction Status Date / Time azithromycin Allergy Unknown hives Verified 09/19/22 12:40 [Zithromax Z-Jan] hydrochlorothiazide Allergy Unknown low K+ Verified 09/19/22 12:40 lisinopril Allergy Unknown cough Verified 09/19/22 12:40 Active Medications: Current Medications Lactated Ringer's (Lr) 1,000 mls @ 50 mls/hr IVCONT .Q20H LUCA Last Infusion: 09/25/22 09:25 Dose: Infused Home Medications Medication Instructions Recorded Confirmed Last Taken Type fluticasone propionate 50 1 spray intranasal DAILY 04/12/20 09/19/22 Unknown History mcg/actuation nasal spray,suspension Exam Exam Date and Time: September 25, 2022 0951 Height,Weight and Vital Signs: Height 5 ft 1 in Weight 68.946 kg Last Vital Signs Temp 97.2 F 09/25/22 09:30 Pulse 59 09/25/22 09:30 Resp 18 09/25/22 09:30 BP 117/60 09/25/22 09:30 Pulse Ox 99 09/25/22 09:30 O2 Del Method Room Air 09/25/22 09:30 Airway Mallampati Class: II TM Dist: >3cm Neck ROM: Full Loose/Missing/Broken Teeth: No Heart: rr Lungs: cta Assessment and Plan Assessment Anesthesia Assessment: Anesthesia Plan Discussed, Smoking Cess. Discussed and Chart Reviewed Final Anesthetic Review Family History of Problems with Anesthesia: No History of Problems with Anesthesia: No NPO: Yes ASA Class: II Final Preanesthetic Review: No Changes in Pt Med Stat, Meds/Allgs Chart Reviewed, Consent Obtained/Reviewed and Anes Risks/Benef Reviewed Patient Risk: Low Anesthetic Plan Anesthetic Plan: MAC: Disposition: Standard PACU
== END 2022-09-25 09:54 | disposition home or self-care (01) ==
PROVIDERS: PCP Internal Medicine; Visit Provider Internal Medicine Gastroenterology
PROC: 0DJ08ZZ Inspection of Upper Intestinal Tract, Via Natural or Artificial Opening Endoscopic (ICD-10-PCS; CPT 43235; principal; 2022-09-25 08:20)
DX: K22.2 Esophageal obstruction (principal); K44.9 Diaphragmatic hernia without obstruction or gangrene; K21.9 Gastro-esophageal reflux disease without esophagitis; K58.9 Irritable bowel syndrome, unspecified; K59.00 Constipation, unspecified; Z79.899 Other long term (current) drug therapy; Z88.1 Allergy status to other antibiotic agents; Z88.8 Allergy status to other drugs, medicaments and biological substances
CPT/HCPCS: 43239; 88305

== ENCOUNTER → 2022-10-09 08:43 | Outpatient (BNVA) | payer MEDICARE, SELFPAY | PROVIDERS: PCP Internal Medicine; Visit Provider Nurse Practitioner Family | DX: K44.9 Diaphragmatic hernia without obstruction or gangrene (principal); K21.9 Gastro-esophageal reflux disease without esophagitis | CPT/HCPCS: 99212 ==

== ENCOUNTER 2022-12-31 07:45 | Outpatient (REF) | payer MEDICARE, SELFPAY | END 2022-12-31 07:46 | disposition home or self-care (01) | LOC: HO.HMGCLDS 07:45 | PROVIDERS: PCP Internal Medicine; Visit Provider Internal Medicine | DX: E78.9 Disorder of lipoprotein metabolism, unspecified (principal); I10 Essential (primary) hypertension; K22.70 Barrett's esophagus without dysplasia; R09.81 Nasal congestion; R42 Dizziness and giddiness; Z91.09 Other allergy status, other than to drugs and biological substances | CPT/HCPCS: 36415; 80053; 80061; 85025 ==

== ENCOUNTER 2023-01-04 08:07 | Outpatient (AMB) | payer MEDICARE, SELFPAY ==
--- NOTE | 2023-01-04 08:10 | A.OFFPC_ITS ---
Vital Signs 01/04/23 08:11 Height 5 ft 1 in Weight 148 lb 8 oz BMI 28.1 BP 114/68 Blood Pressure Location Lt brachial Position Sitting Pulse 69 Pulse Source Pulse Oximeter Pulse Oximetry (%) 97 Oxygen Delivery Method Room Air Intake Visit Reasons: vertigo follow up Allergies azithromycin [Zithromax Z-Jan] Allergy (Unknown, Verified 01/04/23 08:13) hives hydrochlorothiazide Allergy (Unknown, Verified 01/04/23 08:13) low K+ lisinopril Allergy (Unknown, Verified 01/04/23 08:13) cough Medication List - Last Reconciled 01/04/23 by Janelle Orozco MD amlodipine 10 mg PO DAILY 90 days cetirizine 10 mg PO DAILY 90 days cholecalciferol (vitamin D3) (Vitamin D3) 25 mcg PO DAILY esomeprazole magnesium (Nexium) 40 mg PO DAILY famotidine 40 mg PO BEDTIME PRN fluticasone propionate 50 mcg/actuation 1 spray intranasal DAILY losartan 100 mg PO DAILY lovastatin 20 mg PO DAILY 90 days meclizine 12.5 mg PO ONCE 30 days simethicone 125 mg PO BID-QID PRN sumatriptan succinate 50 mg PO ONCE PRN 90 days Tobacco use date assessed: 01/04/23 Fall risk assessment: No Falls in past year Last assessed Fall Risk: 01/04/23 Dental Screening Dental Screen Date: 01/04/23 Did you have a dental visit in the last 12 months?: No Did you have a dental problem in the last 6 months where you did not have access to dental care?: No Was dental information given to patient?: No HPI vertigo follow up HPI Details Patient is a 68-year-old female came in today for her regular follow-up appointment.? 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 patient is on amlodipine 10 mg, and losartan 100 mg, tolerating medication no side effect.? Blood pressure is stable Chronic vertigo:? Stable , has not had dizziness for a while Allergies are stable patient is using Flonase nasal spray and cetirizine 10 mg at night. Follow-up 3 months ? [facility] Medical History Back pain, chronic Seymour esophagus Chronic nasal congestion Chronic vertigo Depression, major, recurrent Environmental allergies Hypertension, essential Lipid disorder Vitamin D deficiency Surgical History Endometrial cyst of ovary History of esophagogastroduodenoscopy (EGD) History of removal of skin mole History of tonsillectomy Hx of colonoscopy Family History Father No problems noted. Mother HTN (hypertension) Brother No problems noted. Brother No problems noted. Sister No problems noted. Son No problems noted. Social History Housing: House Patient Tobacco Use Status: Former Tobacco user Quit Date: age 30 e-Cigarette/Vaping Use: Never Used Current occupational status: employed Cognitive needs: No Hearing needs: No Vision needs: Yes Questionnaire Thrive Questionnaire Date Thrive assessed: 08/11/21 AUDIT C Alcohol Use Questionnaire (AUDIT-C) 1. How often do you have a drink containing alcohol?: Never 3. How often do you have six or more drinks on one occasion?: Never Total Score: 0 Score Reviewed/Action Taken: Yes ROOPA-7 AMB Questionnaire ROOPA-7 Date ROOPA - 7 assessed: 08/11/21 Source: Developed by Drs. Saw Zavaleta, Karen Arellano, Ferny Gonzalez and colleagues, with an educational aisha from [employer]. Review of Systems Const Denies chills and Denies fever(s) ENT Denies epistaxis and Denies nasal discharge Card Denies chest pain Resp Denies chest congestion, Denies cough and Denies hemoptysis GI Denies diarrhea and Denies nausea Skin/Breast Denies rash Neuro Reports no additional complaints Psych Reports no additional complaints Endo Reports no additional complaints Physical exam (Primary Care) Vital Signs: Last Vital Signs Pulse 69 01/04/23 08:11 BP 114/68 01/04/23 08:11 Pulse Ox 97 01/04/23 08:11 Oxygen Delivery Method Room Air 01/04/23 08:11 BMI result Body Mass Index 28.1 Tobacco/Smoking Status: Tobacco use Status Tobacco use date assessed 01/04/23 01/04/23 08:14 Patient Tobacco Use Status Former Tobacco user 01/04/23 08:14 e-Cigarette/Vaping Use Never Used 01/04/23 08:14 Thrive Assessment: Date of Thrive Assessment Date Thrive assessed 08/11/21 01/04/23 08:14 Const General: cooperative, comfortable and no acute distress Orientation/consciousness: patient oriented x3 HENMT Head: Yes normocephalic Eyes General: appearance normal, both eyes and all related structures Neck Neck: Yes supple Resp Effort & Inspection: normal respiratory effort, no cough and no stridor Cardio Rhythm: regular rhythm Heart sounds: S1 normal heart sound present and S2 normal heart sound present Skin General skin exam: turgor normal Neuro General: patient oriented x3, tone normal and moves all extremities Extrem Other: No pain with palpation of lower extremity muscles joint range of motion intact bilateral no skin changes Right lower extremity: no edema Left lower extremity: no edema Assessment and Plan Assessment & Plan (1) Hypertension, essential: Code(s): I10 - Essential (primary) hypertension (2) Chronic vertigo: Code(s): R42 - Dizziness and giddiness (3) Environmental allergies: Code(s): Z91.09 - Other allergy status, other than to drugs and biological substances (4) Lipid disorder: Code(s): E78.9 - Disorder of lipoprotein metabolism, unspecified (5) Chronic nasal congestion: Code(s): R09.81 - Nasal congestion (6) Seymour esophagus: Code(s): K22.70 - Seymour's esophagus without dysplasia Qualifiers: Seymour's esophagus type: without dysplasia Qualified Code(s): K22.70 - Seymour's esophagus without dysplasia (7) Hiatal hernia: Code(s): K44.9 - Diaphragmatic hernia without obstruction or gangrene (8) Bilateral leg cramps: Code(s): R25.2 - Cramp and spasm Plan Patient is a 68-year-old female came in today for her regular follow-up appointment.? 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 patient is on amlodipine 10 mg, and losartan 100 mg, tolerating medication no side effect.? Blood pressure is stable Chronic vertigo:? Stable , has not had dizziness for a while Allergies are stable patient is using Flonase nasal spray and cetirizine 10 mg at night. Follow-up 3 months ? Medications: New fluticasone propionate 50 mcg/actuation 1 spray intranasal DAILY 16 grams 0RF Refilled amlodipine 10 mg PO DAILY 90 days 90 tabs 0RF cetirizine 10 mg PO DAILY 90 days 90 tabs 3RF cholecalciferol (vitamin D3) (Vitamin D3) 25 mcg PO DAILY 90 caps 0RF losartan 100 mg PO DAILY 90 tabs 0RF lovastatin 20 mg PO DAILY 90 days 90 tabs 0RF meclizine 12.5 mg PO ONCE 30 days 30 tabs 1RF sumatriptan succinate 50 mg PO ONCE 90 days PRN 30 tabs 0RF migraine headache Coding Level of Care Code Est Pt Level 4 (99119) Diagnoses Hypertension, essential I10 Chronic vertigo R42 Environmental allergies Z91.09 Lipid disorder E78.9 Chronic nasal congestion R09.81 Seymour esophagus K22.70 Seymour's esophagus type: without dysplasia Hiatal hernia K44.9 Bilateral leg cramps R25.2
[2023-01-04 08:11] VITALS: BP 114/68; PULSE 69; O2SAT 97; BMI 28.1
== END 2023-01-04 09:00 | disposition home or self-care (01) ==
PROVIDERS: Visit Provider Internal Medicine
DX: I10 Essential (primary) hypertension (principal); Z91.09 Other allergy status, other than to drugs and biological substances; K22.70 Barrett's esophagus without dysplasia; R42 Dizziness and giddiness; R09.81 Nasal congestion; E78.9 Disorder of lipoprotein metabolism, unspecified; K44.9 Diaphragmatic hernia without obstruction or gangrene; R25.2 Cramp and spasm
CPT/HCPCS: 99214

== ENCOUNTER 2023-04-02 08:43 | Outpatient (AMB) | payer MEDICARE, SELFPAY ==
[2023-04-02 08:51] VITALS: BP 130/63; PULSE 64; BMI 28.1
--- NOTE | 2023-04-02 08:51 | MHC.OFFVIS ---
Intake Vital Signs 04/02/23 08:51 Height 5 ft 1 in Weight 148 lb 9.465 oz BMI 28.1 BP 130/63 Blood Pressure Location Lt brachial Position Sitting Pulse 64 Intake Visit Reasons: 6 mnth follow up Intake Note: Janette presents in office today in 6 months follow up of GERD. CC: Patient reports occasional bloating, constipation, and gas. She reports her esomeprazole and gas medication help with symptoms. Patient would like to obtain a note for work stating that she has a hiatal hernia and to avoid heavy lifting. 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 Patient stopped eating late at night. GERD (gastroesophageal reflux disease) No esophagitis or Seymour's found on upper endoscopy. Patient will stop famotidine at bedtime and will only use it as needed. Patient will continue Nexium. Continue eating smaller portions. Avoid eating late at night. Staying upright for minimum 3 hours after meals discussed with patient. I will see her in 6 months, sooner on as needed basis. Patient is agreeable to this plan and verbalizes understanding of instructions. She was given the opportunity to ask questions all questions answered. TODAY'S VISIT Patient is here today for follow-up. Patient reports that she has been feeling fairly well. Patient reports that she is taking Nexium and her symptoms of acid reflux are suppressed for the most part. Patient reports that she last few lb. No longer feels bloated. Depending on what she eats she might feel epigastric discomfort or acid reflux. Only uses famotidine on as needed basis at bedtime. Patient denies dyspepsia, dysphagia or odynophagia. Denies melena, hematochezia, unintentional weight loss or ribbon like stools. Patient reports that she has been exercising more now. Overall patient reports that she has been feeling well. 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 Patient also reports back pain. More concerned about her back pain due to her back surgeries. ? [facility] Medical History Seymour esophagus Chronic nasal congestion Lipid disorder Vitamin D deficiency Back pain, chronic Environmental allergies Depression, major, recurrent Hypertension, essential Chronic vertigo Surgical History Hx of colonoscopy History of esophagogastroduodenoscopy (EGD) Endometrial cyst of ovary History of tonsillectomy History of removal of skin mole Family History Father No problems noted. Mother HTN (hypertension) Brother No problems noted. Brother No problems noted. Sister No problems noted. Son No problems noted. Social History Housing: House Patient Tobacco Use Status: Former Tobacco user Quit Date: age 30 e-Cigarette/Vaping Use: Never Used Current occupational status: employed Cognitive needs: No Hearing needs: No Vision needs: Yes Review of Systems Const Denies weight gain and Denies weight loss ENT Reports no additional complaints, Denies dysphagia and Denies odynophagia Card Reports no additional complaints Resp Reports no additional complaints GI Denies abdominal pain, Denies belching, Denies melena, Denies bloating, Denies change in bowel habits, Denies dysphagia, Denies excessive flatus, Denies dyspepsia, Reports heartburn (Occasional), Denies diarrhea, Denies loose stools, Denies nausea, Denies odynophagia and Denies vomiting Reports no additional complaints Musc Reports no additional complaints Neuro Reports no additional complaints Psych Reports no additional complaints Endo Reports no additional complaints Physical Exam Vital Signs: Last Vital Signs Pulse 64 04/02/23 08:51 BP 130/63 04/02/23 08:51 BMI result Body Mass Index 28.1 Const General: healthy appearing, no acute distress and well developed Nutritional Appearance: well nourished Orientation/consciousness: patient oriented x3 HEENT Head: Yes normal to inspection, Yes normocephalic and Yes atraumatic Face and sinus: Yes normal facial exam Mouth: Normal oral and palatal mucosa present Throat: Yes posterior oropharynx normal, Yes tonsils normal and Yes uvula midline Eyes General: appearance normal, both eyes and all related structures Neck Neck: Yes normal visual inspection, Yes full ROM and Yes trachea midline Thyroid: Thyroid normal Resp Effort & Inspection: normal respiratory effort, able to speak in complete sentences, no tracheal deviation and symmetric chest movement Auscultation: clear to auscultation bilaterally Cardio Rate: regular rate Heart sounds: S1 normal heart sound present and S2 normal heart sound present GI Inspection: Yes normal to inspection and No distended Palpation (GI): Soft to palpation, not firm, nontender and No hepatosplenomegaly present Auscultation: normal bowel sounds General: Yes no CVA tenderness Back/Spine/Pelvis Back: no CVA tenderness Skin General skin exam: elasticity normal, turgor normal and dry skin Neuro General: patient oriented x3 Psych Appearance: grossly normal Mental Status: mental status grossly normal Assessment & Plan Assessment & Plan (1) Diarrhea: Code(s): R19.7 - Diarrhea, unspecified Qualifiers: Diarrhea type: functional diarrhea Qualified Code(s): K59.1 - Functional diarrhea (2) Hiatal hernia: Code(s): K44.9 - Diaphragmatic hernia without obstruction or gangrene (3) GERD (gastroesophageal reflux disease): Code(s): K21.9 - Gastro-esophageal reflux disease without esophagitis Qualifiers: Esophagitis presence: esophagitis presence not specified Qualified Code(s): K21.9 - Gastro-esophageal reflux disease without esophagitis Plan Continue current regimen with Nexium. Use famotidine on as needed basis. Patient was encouraged to continue avoiding dietary triggers. Staying upright for minimal 3 hours after meals discussed with patient. Avoid late night snacking. Continue exercise. Continue with minimum 32 oz of water a day. I will see patient in 6 months, sooner on as needed basis. Patient is agreeable to this plan and verbalizes understanding of instructions. She was given the opportunity to ask questions and all questions answered. Thank you for allowing me to participate in her care Medications: Refilled esomeprazole magnesium (Nexium) 40 mg PO DAILY 30 caps 5RF K21.9 - Gastro-esophageal reflux disease without esophagitis famotidine 40 mg PO BEDTIME PRN 30 tabs 3RF acid reflux K21.9 - Gastro-esophageal reflux disease without esophagitis Coding Level of Care Code Est Pt Level 3 (04975) Diagnoses Functional diarrhea K59.1 Diarrhea type: functional diarrhea Hiatal hernia K44.9 Gastroesophageal reflux disease, unspecified whether esophagitis present K21.9 Esophagitis presence: esophagitis presence not specified Time Spent (min) 25 Comment 15 minutes spent with patient and additional 10 minutes spent reviewing her records
== END 2023-04-02 09:31 | disposition home or self-care (01) ==
PROVIDERS: Visit Provider Nurse Practitioner Family
DX: K59.1 Functional diarrhea (principal); K44.9 Diaphragmatic hernia without obstruction or gangrene; K21.9 Gastro-esophageal reflux disease without esophagitis
CPT/HCPCS: 99213

== ENCOUNTER → 2023-04-02 08:43 | Outpatient (BNVA) | payer MEDICARE, SELFPAY | PROVIDERS: Visit Provider Nurse Practitioner Family | DX: K21.9 Gastro-esophageal reflux disease without esophagitis (principal); K44.9 Diaphragmatic hernia without obstruction or gangrene; K59.1 Functional diarrhea | CPT/HCPCS: 99212 ==

== ENCOUNTER 2023-04-09 11:43 | Outpatient (AMB) | payer MEDICARE, SELFPAY ==
--- NOTE | 2023-04-09 11:44 | MHC.PC.OV ---
Vital Signs 04/09/23 11:47 Height 5 ft 1 in Weight 149 lb 4 oz BMI 28.2 BP 140/70 H Blood Pressure Location Lt brachial Position Sitting Pulse 65 Pulse Source Pulse Oximeter Pulse Oximetry (%) 98 Oxygen Delivery Method Room Air Intake Visit Reasons: 3 Month follow up Allergies azithromycin [Zithromax Z-Jan] Allergy (Unknown, Verified 04/09/23 11:45) hives hydrochlorothiazide Allergy (Unknown, Verified 04/09/23 11:45) low K+ lisinopril Allergy (Unknown, Verified 04/09/23 11:45) cough Medication List - Last Reconciled 04/09/23 by Janelle Orozco MD amlodipine 10 mg PO DAILY 90 days cetirizine 10 mg PO DAILY 90 days cholecalciferol (vitamin D3) (Vitamin D3) 25 mcg PO DAILY esomeprazole magnesium (Nexium) 40 mg PO DAILY famotidine 40 mg PO BEDTIME PRN losartan 100 mg PO DAILY lovastatin 20 mg PO DAILY 90 days meclizine 12.5 mg PO ONCE 30 days simethicone 125 mg PO BID-QID PRN sumatriptan succinate 50 mg PO ONCE PRN 90 days Tobacco use date assessed: 04/09/23 Fall risk assessment: No Falls in past year Last assessed Fall Risk: 04/09/23 Dental Screening Dental Screen Date: 04/09/23 Did you have a dental visit in the last 12 months?: No Did you have a dental problem in the last 6 months where you did not have access to dental care?: No Was dental information given to patient?: No HPI 3 Month follow up HPI Details Patient is a 68-year-old female came in today for her regular follow-up appointment.? 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 Letter provided I do think she should be picking up within 10 lb specially bending over holding the weight to Lipid disorder: She has restarted taking the statin recheck labs again in June before next visit Patient has Seymour's esophagus, management through [facility] gastric medications through their office Hypertension:? patient is on amlodipine 10 mg, and losartan 100 mg, tolerating medication no side effect.? Blood pressure is stable Chronic vertigo:? Stable , has not had dizziness for a while Allergies are stable patient is using Flonase nasal spray and cetirizine 10 mg at night. Follow-up 3 months ? PFSH Medical History Seymour esophagus Chronic nasal congestion Lipid disorder Vitamin D deficiency Back pain, chronic Environmental allergies Depression, major, recurrent Hypertension, essential Chronic vertigo Surgical History Hx of colonoscopy History of esophagogastroduodenoscopy (EGD) Endometrial cyst of ovary History of tonsillectomy History of removal of skin mole Family History Father No problems noted. Mother HTN (hypertension) Brother No problems noted. Brother No problems noted. Sister No problems noted. Son No problems noted. Social History Housing: House Patient Tobacco Use Status: Former Tobacco user Quit Date: age 30 e-Cigarette/Vaping Use: Never Used Current occupational status: employed Cognitive needs: No Hearing needs: No Vision needs: Yes Questionnaire PHQ-9 Over the last 2 weeks, how often have you been bothered by any of the following problems? 1. Little interest or pleasure in doing things: not at all 2. Feeling down, depressed, or hopeless: not at all 3. Trouble falling or staying asleep, or sleeping too much: several days 4. Feeling tired or having little energy: several days 5. Poor appetite or overeating: not at all 6. Feeling bad about yourself - or that you are a failure or have let yourself or your family down: not at all 7. Trouble concentrating on things, such as reading the newspaper or watching television: not at all 8. Moving or speaking so slowly that other people could have noticed. Or the opposite - being so fidgety or restless that you have been moving around a lot more than usual: not at all 9. Thoughts that you would be better off or of hurting yourself in some way: not at all Total score: 2 Depression Screening Interpretation: Negative Depression Screening Done: Yes 14406 - PHQ-9 Billing: Yes Source: Developed by Drs. Saw Zavaleta, Ferny Pool and colleagues, with an educational aisha from [employer]. Thrive Questionnaire Date Thrive assessed: 04/09/23 I am a: Patient What is your living situation today?: I have a steady place to live Within the past 12 months, did the food you bought not last and you didn't have the money to get more?: Never true Within the past 12 months, did you worry whether your food would run out before you got money to buy more?: Never true Do you have trouble paying for medicines?: No Do you have trouble getting transportation to medical appointments?: No Do you have trouble paying your heating and electricity bill?: No Do you have trouble taking care of your child, family member or friend?: No Do you have trouble with day-to-day activities such as bathing, preparing meals, shopping, managing finances, etc.?: No Are you currently unemployed and looking for a job?: No Are you interested in more education?: No AUDIT C Alcohol Use Questionnaire (AUDIT-C) 1. How often do you have a drink containing alcohol?: Never 3. How often do you have six or more drinks on one occasion?: Never Total Score: 0 Score Reviewed/Action Taken: Yes ROOPA-7 AMB Questionnaire ROOPA-7 Date ROOPA - 7 assessed: 04/09/23 Feeling nervous, anxious, or on edge: 0 = Not at all Not being able to stop or control worryin = Not at all Worrying too much about different things: 0 = Not at all Trouble relaxin = Several days Being so restless that it is hard to sit still: 0 = Not at all Becoming easily annoyed or irritable: 0 = Not at all Feeling afraid as if something awful might happen: 0 = Not at all Total ROOPA-7 score (0-4 normal; 5-9 mild; 10-14 moderate; 15-21 severe): 1 Source: Developed by Drs. Saw Zavaleta, Ferny Pool and colleagues, with an educational aisha from [employer]. ROOPA-7 Assessment Billing ROOPA-7 Assessment Tool: ROOPA-7 Assessment 07849 Review of Systems Const Denies chills and Denies fever(s) ENT Denies epistaxis and Denies nasal discharge Card Denies chest pain Resp Denies chest congestion, Denies cough and Denies hemoptysis GI Denies diarrhea and Denies nausea Skin/Breast Denies rash Neuro Reports no additional complaints Psych Reports no additional complaints Endo Reports no additional complaints Physical exam (Primary Care) Vital Signs: Last Vital Signs Pulse 65 04/09/23 11:47 BP 140/70 H 04/09/23 11:47 Pulse Ox 98 04/09/23 11:47 Oxygen Delivery Method Room Air 04/09/23 11:47 BMI result Body Mass Index 28.2 Tobacco/Smoking Status: Tobacco use Status Tobacco use date assessed 04/09/23 04/09/23 11:46 Patient Tobacco Use Status Former Tobacco user 04/09/23 11:46 e-Cigarette/Vaping Use Never Used 04/09/23 11:46 PHQ-9: PHQ-9 Score PHQ-9: Total score 2 04/09/23 12:30 Depression Screening Interpretation: Negative Thrive Assessment: Date of Thrive Assessment Date Thrive assessed 04/09/23 04/09/23 12:30 Const General: cooperative, comfortable and no acute distress Orientation/consciousness: patient oriented x3 HENMT Head: Yes normocephalic Eyes General: appearance normal, both eyes and all related structures Neck Neck: Yes supple Resp Effort & Inspection: normal respiratory effort, no cough and no stridor Cardio Rhythm: regular rhythm Heart sounds: S1 normal heart sound present and S2 normal heart sound present Skin General skin exam: turgor normal Neuro General: patient oriented x3, tone normal and moves all extremities Extrem Right lower extremity: no edema Left lower extremity: no edema Assessment and Plan Assessment & Plan (1) Hypertension, essential: Code(s): I10 - Essential (primary) hypertension (2) Chronic vertigo: Code(s): R42 - Dizziness and giddiness (3) Environmental allergies: Code(s): Z91.09 - Other allergy status, other than to drugs and biological substances (4) Lipid disorder: Code(s): E78.9 - Disorder of lipoprotein metabolism, unspecified (5) Chronic nasal congestion: Code(s): R09.81 - Nasal congestion (6) Seymour esophagus: Code(s): K22.70 - Seymour's esophagus without dysplasia Qualifiers: Seymour's esophagus type: without dysplasia Qualified Code(s): K22.70 - Seymour's esophagus without dysplasia (7) Hiatal hernia: Code(s): K44.9 - Diaphragmatic hernia without obstruction or gangrene (8) Headache syndrome: Code(s): G44.89 - Other headache syndrome Plan Patient is a 68-year-old female came in today for her regular follow-up appointment.? 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 Letter provided I do think she should be picking up within 10 lb specially bending over holding the weight to Lipid disorder: She has restarted taking the statin recheck labs again in June before next visit Patient has Seymour's esophagus, management through [facility] gastric medications through their office Hypertension:? patient is on amlodipine 10 mg, and losartan 100 mg, tolerating medication no side effect.? Blood pressure is stable Chronic vertigo:? Stable , has not had dizziness for a while Allergies are stable patient is using Flonase nasal spray and cetirizine 10 mg at night. Headaches are stable Follow-up 3 months ? Orders: Orders Complete Blood Count Auto Diff 3 Months E78.9 - Disorder of lipoprotein metabolism, unspecified, I10 - Essential (primary) hypertension, R42 - Dizziness and giddiness, Z91.09 - Other allergy status, other than to drugs and biological substances Lipid Panel 3 Months E78.9 - Disorder of lipoprotein metabolism, unspecified, I10 - Essential (primary) hypertension, R42 - Dizziness and giddiness, Z91.09 - Other allergy status, other than to drugs and biological substances Comprehensive [place]. Panel Fast 3 Months E78.9 - Disorder of lipoprotein metabolism, unspecified, I10 - Essential (primary) hypertension, R42 - Dizziness and giddiness, Z91.09 - Other allergy status, other than to drugs and biological substances Coding Level of Care Code Est Pt Level 4 (05239) Diagnoses Hypertension, essential I10 Chronic vertigo R42 Environmental allergies Z91.09 Lipid disorder E78.9 Chronic nasal congestion R09.81 Seymour's esophagus without dysplasia K22.70 Seymour's esophagus type: without dysplasia Hiatal hernia K44.9 Headache syndrome G44.89 Additional Codes ROOPA-7 Assessment Billing - ROOPA-7 Assessment Tool: ROOPA-7 Assessment [id number] ([id number])
[2023-04-09 11:47] VITALS: BP 140/70; PULSE 65; O2SAT 98; BMI 28.2
== END 2023-04-09 12:37 | disposition home or self-care (01) ==
PROVIDERS: PCP Internal Medicine; Visit Provider Internal Medicine
DX: I10 Essential (primary) hypertension (principal); R42 Dizziness and giddiness; Z91.09 Other allergy status, other than to drugs and biological substances; E78.9 Disorder of lipoprotein metabolism, unspecified; R09.81 Nasal congestion; K22.70 Barrett's esophagus without dysplasia; K44.9 Diaphragmatic hernia without obstruction or gangrene; G44.89 Other headache syndrome
CPT/HCPCS: 99214

== ENCOUNTER 2023-04-29 12:17 | Outpatient (REF) | payer MEDICARE, SELFPAY | END 2023-04-29 12:18 | disposition home or self-care (01) | LOC: HO.MAMMO 12:17 | PROVIDERS: PCP Internal Medicine; Visit Provider Internal Medicine | DX: Z12.31 Encounter for screening mammogram for malignant neoplasm of breast (principal) | CPT/HCPCS: 77063; 77067 ==

== ENCOUNTER → 2023-04-29 12:45 | Outpatient (BNV) | payer MEDICARE, SELFPAY | PROVIDERS: PCP Internal Medicine; Visit Provider Radiology Diagnostic Radiology | DX: Z12.31 Encounter for screening mammogram for malignant neoplasm of breast (principal) | CPT/HCPCS: 77063; 77067 ==

== ENCOUNTER 2023-06-27 07:50 | Outpatient (REF) | payer MEDICARE, SELFPAY | END 2023-06-27 07:51 | disposition home or self-care (01) | LOC: HO.HMGCLDS 07:50 | PROVIDERS: PCP Internal Medicine; Visit Provider Internal Medicine | DX: E78.9 Disorder of lipoprotein metabolism, unspecified (principal); I10 Essential (primary) hypertension; R42 Dizziness and giddiness; Z91.09 Other allergy status, other than to drugs and biological substances | CPT/HCPCS: 36415; 80053; 80061; 85025 ==

== ENCOUNTER 2023-07-09 09:12 | Outpatient (AMB) | payer MEDICARE, SELFPAY ==
[2023-07-09 09:13] VITALS: BP 136/78; PULSE 73; O2SAT 96; BMI 28.2
--- NOTE | 2023-07-09 09:13 | MHC.PC.OV ---
Vital Signs 07/09/23 09:13 Height 5 ft 1 in Weight 149 lb BMI 28.2 BP 136/78 Blood Pressure Location Lt brachial Position Sitting Pulse 73 Pulse Source Pulse Oximeter Pulse Oximetry (%) 96 Oxygen Delivery Method Room Air Intake Visit Reasons: 6 Month follow up Allergies azithromycin [Zithromax Z-Jan] Allergy (Unknown, Verified 07/09/23 09:14) hives hydrochlorothiazide Allergy (Unknown, Verified 07/09/23 09:14) low K+ lisinopril Allergy (Unknown, Verified 07/09/23 09:14) cough Medication List - Last Reconciled 07/09/23 by Janelle Orozco MD amlodipine 10 mg PO DAILY 90 days cetirizine 10 mg PO DAILY 90 days cholecalciferol (vitamin D3) (Vitamin D3) 25 mcg PO DAILY esomeprazole magnesium (Nexium) 40 mg PO DAILY famotidine 40 mg PO BEDTIME PRN losartan 100 mg PO DAILY lovastatin 20 mg PO DAILY 90 days meclizine 12.5 mg PO ONCE 30 days simethicone 125 mg PO BID-QID PRN sumatriptan succinate 50 mg PO ONCE PRN 90 days Tobacco use date assessed: 07/09/23 Fall risk assessment: No Falls in past year Last assessed Fall Risk: 07/09/23 Dental Screening Dental Screen Date: 07/09/23 Did you have a dental visit in the last 12 months?: No Did you have a dental problem in the last 6 months where you did not have access to dental care?: No Was dental information given to patient?: No HPI 6 Month follow up HPI Details Patient is a 68-year-old female came in today for her regular follow-up appointment.? 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 Stable , has not had dizziness for a while Allergies are stable patient is using Flonase nasal spray and cetirizine 10 mg at night. Headaches are stable Follow-up 3 months ? [facility] Medical History Seymour esophagus Chronic nasal congestion Lipid disorder Vitamin D deficiency Back pain, chronic Environmental allergies Depression, major, recurrent Hypertension, essential Chronic vertigo Surgical History Hx of colonoscopy History of esophagogastroduodenoscopy (EGD) Endometrial cyst of ovary History of tonsillectomy History of removal of skin mole Family History Father No problems noted. Mother HTN (hypertension) Brother No problems noted. Brother No problems noted. Sister No problems noted. Son No problems noted. Social History Housing: House Patient Tobacco Use Status: Former Tobacco user Quit Date: age 30 e-Cigarette/Vaping Use: Never Used Current occupational status: employed Cognitive needs: No Hearing needs: No Vision needs: Yes Questionnaire Thrive Questionnaire Date Thrive assessed: 04/09/23 AUDIT C Alcohol Use Questionnaire (AUDIT-C) 1. How often do you have a drink containing alcohol?: Never 3. How often do you have six or more drinks on one occasion?: Never Total Score: 0 Score Reviewed/Action Taken: Yes ROOPA-7 AMB Questionnaire ROOPA-7 Date ROOPA - 7 assessed: 04/09/23 Source: Developed by Drs. Saw Zavaleta, Karen Arellano, Ferny Gonzalez and colleagues, with an educational aisha from [employer]. Review of Systems Const Denies chills and Denies fever(s) ENT Denies epistaxis and Denies nasal discharge Card Denies chest pain Resp Denies chest congestion, Denies cough and Denies hemoptysis GI Denies diarrhea and Denies nausea Skin/Breast Denies rash Neuro Reports no additional complaints Psych Reports no additional complaints Endo Reports no additional complaints Physical exam (Primary Care) Vital Signs: Last Vital Signs Pulse 73 01/16/24 09:13 BP 136/78 07/09/23 09:13 Pulse Ox 96 07/09/23 09:13 Oxygen Delivery Method Room Air 07/09/23 09:13 BMI result Body Mass Index 28.2 Tobacco/Smoking Status: Tobacco use Status Tobacco use date assessed 07/09/23 07/09/23 09:18 Patient Tobacco Use Status Former Tobacco user 07/09/23 09:18 e-Cigarette/Vaping Use Never Used 07/09/23 09:18 Thrive Assessment: Date of Thrive Assessment Date Thrive assessed 04/09/23 07/09/23 09:18 Const General: cooperative, comfortable and no acute distress Orientation/consciousness: patient oriented x3 HENMT Head: Yes normocephalic Eyes General: appearance normal, both eyes and all related structures Neck Neck: Yes supple Resp Effort & Inspection: normal respiratory effort, no cough and no stridor Cardio Rhythm: regular rhythm Heart sounds: S1 normal heart sound present and S2 normal heart sound present Skin General skin exam: turgor normal Neuro General: patient oriented x3, tone normal and moves all extremities Extrem Right lower extremity: no edema Left lower extremity: no edema Assessment and Plan Assessment & Plan (1) Hypertension, essential: Code(s): I10 - Essential (primary) hypertension (2) Chronic vertigo: Code(s): R42 - Dizziness and giddiness (3) Environmental allergies: Code(s): Z91.09 - Other allergy status, other than to drugs and biological substances (4) Lipid disorder: Code(s): E78.9 - Disorder of lipoprotein metabolism, unspecified (5) Chronic nasal congestion: Code(s): R09.81 - Nasal congestion (6) Seymour esophagus: Code(s): K22.70 - Seymour's esophagus without dysplasia Qualifiers: Seymour's esophagus type: without dysplasia Qualified Code(s): K22.70 - Seymour's esophagus without dysplasia (7) Hiatal hernia: Code(s): K44.9 - Diaphragmatic hernia without obstruction or gangrene (8) Headache syndrome: Code(s): G44.89 - Other headache syndrome Plan Patient is a 68-year-old female came in today for her regular follow-up appointment.? 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 Stable , has not had dizziness for a while Allergies are stable patient is using Flonase nasal spray and cetirizine 10 mg at night. Headaches are stable Follow-up 3 months Medications: New atenolol 25 mg PO DAILY 30 tabs 0RF hypertension Coding Level of Care Code Est Pt Level 4 (14872) Diagnoses Hypertension, essential I10 Chronic vertigo R42 Environmental allergies Z91.09 Lipid disorder E78.9 Chronic nasal congestion R09.81 Seymour's esophagus without dysplasia K22.70 Seymour's esophagus type: without dysplasia Hiatal hernia K44.9 Headache syndrome G44.89
== END 2023-07-09 10:49 | disposition home or self-care (01) ==
PROVIDERS: PCP Internal Medicine; Visit Provider Internal Medicine
DX: I10 Essential (primary) hypertension (principal); R42 Dizziness and giddiness; Z91.09 Other allergy status, other than to drugs and biological substances; E78.9 Disorder of lipoprotein metabolism, unspecified; R09.81 Nasal congestion; K22.70 Barrett's esophagus without dysplasia; K44.9 Diaphragmatic hernia without obstruction or gangrene; G44.89 Other headache syndrome
CPT/HCPCS: 99214

== ENCOUNTER 2023-07-18 07:35 | Outpatient (AMB) | payer MEDICARE, SELFPAY ==
--- NOTE | 2023-07-18 08:15 | A.OFFPC_ITS ---
Intake Visit Reasons: Follow Up~[phone] Allergies azithromycin [Zithromax Z-Jan] Allergy (Unknown, Verified 07/18/23 08:38) hives hydrochlorothiazide Allergy (Unknown, Verified 07/18/23 08:38) low K+ lisinopril Allergy (Unknown, Verified 07/18/23 08:38) cough Medication List - Last Reconciled 07/18/23 by Janelle Orozco MD amlodipine 10 mg PO DAILY 90 days atenolol 25 mg PO DAILY cetirizine 10 mg PO DAILY 90 days cholecalciferol (vitamin D3) (Vitamin D3) 25 mcg PO DAILY esomeprazole magnesium (Nexium) 40 mg PO DAILY famotidine 40 mg PO BEDTIME PRN losartan 100 mg PO DAILY lovastatin 20 mg PO DAILY 90 days meclizine 12.5 mg PO ONCE 30 days simethicone 125 mg PO BID-QID PRN sumatriptan succinate 50 mg PO ONCE PRN 90 days Tobacco use date assessed: 07/18/23 Fall risk assessment: No Falls in past year Last assessed Fall Risk: 07/18/23 Dental Screening Dental Screen Date: 07/18/23 Did you have a dental visit in the last 12 months?: No Did you have a dental problem in the last 6 months where you did not have access to dental care?: No Was dental information given to patient?: Patient declined HPI Follow Up~[phone] HPI Details Patient is 68-year-old female this is a tele medicine follow-up appointment Patient was seen 2 weeks ago, she verbalize to having high blood pressure at home Patient was also complaining of palpitations at night However her blood pressure in office was 136/78 Was already on amlodipine 10 mg and losartan 100 mg We added atenolol 25 mg Patient is doing much better her palpitations has resolved, and she tells me that she can climb full flight of stairs and do not get short of breath anymore Her blood pressure has been running around 118/65, 113/65 Patient is to continue with all 3 medications for now I have told her that if her blood pressures start dropping below 110 she is to cut down amlodipine in into half that will be 5 mg PFSH Medical History Seymour esophagus Chronic nasal congestion Lipid disorder Vitamin D deficiency Back pain, chronic Environmental allergies Depression, major, recurrent Hypertension, essential Chronic vertigo Surgical History Hx of colonoscopy History of esophagogastroduodenoscopy (EGD) Endometrial cyst of ovary History of tonsillectomy History of removal of skin mole Family History Father No problems noted. Mother HTN (hypertension) Brother No problems noted. Brother No problems noted. Sister No problems noted. Son No problems noted. Social History Housing: House Patient Tobacco Use Status: Former Tobacco user Quit Date: age 30 e-Cigarette/Vaping Use: Never Used Current occupational status: employed Cognitive needs: No Hearing needs: No Vision needs: Yes Questionnaire PHQ-9 Over the last 2 weeks, how often have you been bothered by any of the following problems? 1. Little interest or pleasure in doing things: not at all 2. Feeling down, depressed, or hopeless: not at all 3. Trouble falling or staying asleep, or sleeping too much: not at all 4. Feeling tired or having little energy: not at all 5. Poor appetite or overeating: not at all 6. Feeling bad about yourself - or that you are a failure or have let yourself or your family down: not at all 7. Trouble concentrating on things, such as reading the newspaper or watching television: not at all 8. Moving or speaking so slowly that other people could have noticed. Or the opposite - being so fidgety or restless that you have been moving around a lot more than usual: not at all 9. Thoughts that you would be better off or of hurting yourself in some way: not at all Total score: 0 Depression Screening Interpretation: Negative Depression Screening Done: Yes 29706 - PHQ-9 Billing: Yes Source: Developed by Drs. Saw Zavaleta, Karen Arellano, Ferny Gonzalez and colleagues, with an educational aisha from [employer]. Thrive Questionnaire Date Thrive assessed: 07/18/23 I am a: Patient What is your living situation today?: I have a steady place to live Within the past 12 months, did the food you bought not last and you didn't have the money to get more?: Never true Within the past 12 months, did you worry whether your food would run out before you got money to buy more?: Never true Do you have trouble paying for medicines?: No Do you have trouble getting transportation to medical appointments?: No Do you have trouble paying your heating and electricity bill?: No Do you have trouble taking care of your child, family member or friend?: No Do you have trouble with day-to-day activities such as bathing, preparing meals, shopping, managing finances, etc.?: No Are you currently unemployed and looking for a job?: No Are you interested in more education?: No Please select the resources that you would like help with: None Currently or been in a relationship where the following occur: no concerns reported THRIVE Score: 0 AUDIT C Alcohol Use Questionnaire (AUDIT-C) 1. How often do you have a drink containing alcohol?: Never 3. How often do you have six or more drinks on one occasion?: Never Total Score: 0 Score Reviewed/Action Taken: Yes ROOPA-7 AMB Questionnaire ROOPA-7 Date ROOPA - 7 assessed: 07/18/23 Feeling nervous, anxious, or on edge: 0 = Not at all Not being able to stop or control worryin = Not at all Worrying too much about different things: 0 = Not at all Trouble relaxin = Not at all Being so restless that it is hard to sit still: 0 = Not at all Becoming easily annoyed or irritable: 0 = Not at all Feeling afraid as if something awful might happen: 0 = Not at all Total ROOPA-7 score (0-4 normal; 5-9 mild; 10-14 moderate; 15-21 severe): 0 Source: Developed by Drs. Saw Zavaleta, Karen Arellano, Ferny Gonzalez and colleagues, with an educational aisha from [employer]. ROOPA-7 Assessment Billing ROOPA-7 Assessment Tool: ROOPA-7 Assessment 53061 Review of Systems Const Denies chills and Denies fever(s) ENT Denies epistaxis and Denies nasal discharge Card Denies chest pain Resp Denies chest congestion, Denies cough and Denies hemoptysis GI Denies diarrhea and Denies nausea Skin/Breast Denies rash Neuro Reports no additional complaints Psych Reports no additional complaints Endo Reports no additional complaints Physical exam (Primary Care) Tobacco/Smoking Status: Tobacco use Status Tobacco use date assessed 07/18/23 07/18/23 08:18 Patient Tobacco Use Status Former Tobacco user 07/18/23 08:18 e-Cigarette/Vaping Use Never Used 07/18/23 08:18 PHQ-9: PHQ-9 Score PHQ-9: Total score 0 07/18/23 08:38 Depression Screening Interpretation: Negative Thrive Assessment: Date of Thrive Assessment Date Thrive assessed 07/18/23 07/18/23 08:18 Currently or been in a relationship where the following occur: no concerns reported Telehealth Telehealth Location of provider rendering services: practice address Location of patient: address on file Patient Identification confirmed using: Name, : Yes Telehealth method: voice only Patient verbally consented to treatment: Yes Patient verbally consented to billing insurance company: Yes Patient informed of any privacy concerns related to visit: Yes Minutes spent on Phone/Video with Pt.: 14 Assessment and Plan Assessment & Plan (1) Hypertension, essential: Code(s): I10 - Essential (primary) hypertension Plan Patient is 68-year-old female this is a tele medicine follow-up appointment Patient was seen 2 weeks ago, she verbalize to having high blood pressure at home Patient was also complaining of palpitations at night However her blood pressure in office was 136/78 Was already on amlodipine 10 mg and losartan 100 mg We added atenolol 25 mg Patient is doing much better her palpitations has resolved, and she tells me that she can climb full flight of stairs and do not get short of breath anymore Her blood pressure has been running around 118/65, 113/65 Patient is to continue with all 3 medications for now I have told her that if her blood pressures start dropping below 110 she is to cut down amlodipine in into half that will be 5 mg Medications: Refilled atenolol 25 mg PO DAILY 90 tabs 1RF hypertension Coding Level of Care Code Tele Est Pt Level 3 (26807) Diagnoses Hypertension, essential I10 Additional Codes ROOPA-7 Assessment Billing - ROOPA-7 Assessment Tool: ROOPA-7 Assessment 18909 ([id number])
== END 2023-07-18 11:51 | disposition home or self-care (01) ==
LOC: HO.HMGC 07:35
PROVIDERS: PCP Internal Medicine; Visit Provider Internal Medicine
DX: I10 Essential (primary) hypertension (principal)
CPT/HCPCS: 99442

== ENCOUNTER 2023-10-02 08:37 | Outpatient (AMB) | payer MEDICARE, SELFPAY ==
[2023-10-02 08:38] VITALS: BP 102/54; PULSE 60; BMI 27.9
--- NOTE | 2023-10-02 08:38 | A.OFFVIS_ITS ---
Vital Signs 10/02/23 08:38 Height 5 ft 1 in Weight 147 lb 11.355 oz BMI 27.9 BP 102/54 L Blood Pressure Location Lt brachial Position Sitting Pulse 60 Intake Visit Reasons: 6 month follow up Prince esophagus Intake Note: Janette returns to in office visit today in 6 months follow up of prince esophagus. CC: Patient reports doing well and denies having any GI symptoms today. She states she had problems for a week because she ran out of the Senna but now her bowels are back to normal. [employer] Required: No Accompanied by: Self / Same As Patient Allergies azithromycin [Zithromax Z-Jan] Allergy (Unknown, Verified 10/08/23 09:04) hives hydrochlorothiazide Allergy (Unknown, Verified 10/08/23 09:04) low K+ lisinopril Allergy (Unknown, Verified 10/08/23 09:04) cough HPI HPI 6 month follow up Prince esophagus: Details: LAST VISIT: Diarrhea Hiatal hernia GERD (gastroesophageal reflux disease) Plan Continue current regimen with Nexium. Use famotidine on as needed basis. Patient was encouraged to continue avoiding dietary triggers. Staying upright for minimal 3 hours after meals discussed with patient. Avoid late night snacking. Continue exercise. Continue with minimum 32 oz of water a day. I will see patient in 6 months, sooner on as needed basis. Patient is agreeable to this plan and verbalizes understanding of instructions. She was given the opportunity to ask questions and all questions answered. ? Thank you for allowing me to participate in her care Medications Refilled esomeprazole magnesium (Nexium) 40 mg PO DAILY 30 caps 5RF K21.9 famotidine 40 mg PO BEDTIME PRN 30 tabs 3RF acid reflux K21.9 TODAY'S VISIT Patient is here today for follow-up. Patient reports that she has been doing well as long as she takes Senokot. Patient states that she ran out of senna and for few days she did not take any so she felt like she backed up. For 1 week she had abdominal pain left lower and upper quadrant discomfort and bloating. Patient states that her acid reflux symptoms are suppressed with Nexium and famotidine. Patient denies dyspepsia, dysphagia or odynophagia. Patient denies any melena, hematochezia, unintentional weight loss or ribbon like stools. Patient denies any nausea or vomiting. Denies any other GI PFSH Medical History Prince esophagus Chronic nasal congestion Lipid disorder Vitamin D deficiency Back pain, chronic Environmental allergies Depression, major, recurrent Hypertension, essential Chronic vertigo Surgical History Hx of colonoscopy History of esophagogastroduodenoscopy (EGD) Endometrial cyst of ovary History of tonsillectomy History of removal of skin mole Family History Father No problems noted. Mother HTN (hypertension) Brother No problems noted. Brother No problems noted. Sister No problems noted. Son No problems noted. Social History Housing: House Patient Tobacco Use Status: Former Tobacco user Quit Date: age 30 e-Cigarette/Vaping Use: Never Used Current occupational status: employed Cognitive needs: No Hearing needs: No Vision needs: Yes Review of Systems Const Denies weight gain and Denies weight loss ENT Reports no additional complaints, Denies dysphagia and Denies odynophagia Card Reports no additional complaints Resp Reports no additional complaints GI Denies abdominal pain, Denies belching, Denies melena, Denies bloating, Denies change in bowel habits, Denies dysphagia, Denies excessive flatus, Denies dyspepsia, Denies heartburn, Denies diarrhea, Denies loose stools, Denies nausea, Denies odynophagia and Denies vomiting Musc Reports no additional complaints Neuro Reports no additional complaints Psych Reports no additional complaints Endo Reports no additional complaints Physical Exam Vital Signs: Last Vital Signs Pulse 60 10/02/23 08:38 BP 102/54 L 10/02/23 08:38 BMI result Body Mass Index 27.9 Const General: healthy appearing, no acute distress and well developed Nutritional Appearance: well nourished Orientation/consciousness: patient oriented x3 Resp Effort & Inspection: normal respiratory effort, able to speak in complete sentences, no tracheal deviation and symmetric chest movement Auscultation: clear to auscultation bilaterally Cardio Rate: regular rate GI Inspection: Yes normal to inspection and No distended Palpation (GI): Soft to palpation, not firm, nontender and No hepatosplenomegaly present Auscultation: normal bowel sounds General: Yes no CVA tenderness Back/Spine/Pelvis Back: no CVA tenderness Skin General skin exam: elasticity normal, turgor normal and dry skin Neuro General: patient oriented x3 Psych Appearance: grossly normal Mental Status: mental status grossly normal Assessment & Plan Assessment & Plan (1) Diarrhea: Code(s): R19.7 - Diarrhea, unspecified Category: Medical Qualifiers: Diarrhea type: functional diarrhea Qualified Code(s): K59.1 - Functional diarrhea (2) Hiatal hernia: Code(s): K44.9 - Diaphragmatic hernia without obstruction or gangrene Category: Medical (3) GERD (gastroesophageal reflux disease): Code(s): K21.9 - Gastro-esophageal reflux disease without esophagitis Qualifiers: Esophagitis presence: esophagitis presence not specified Qualified Code(s): K21.9 - Gastro-esophageal reflux disease without esophagitis (4) Constipation: Code(s): K59.00 - Constipation, unspecified Qualifiers: Constipation type: slow transit constipation Qualified Code(s): K59.01 - Slow transit constipation Plan Continue Nexium and famotidine. Patient was encouraged to avoid dietary triggers and late night snacking. Eating smaller meals and more often. Staying upright for minimum 3 hours after meals discussed with patient. Continue high- fiber diet. Patient may take fiber supplements. Patient was given script for senna. Encouraged to increase fluid intake and activity to promote better bowel motility. Low FODMAP diet discussed with patient as well. She will return in 6 months, sooner on as needed basis. Patient is agreeable to this plan and guillermina oconnor understanding of instructions. She was given the opportunity to ask questions and all questions answered. Thank you for allowing me to participate in her care Medications: New sennosides (Natural Senna Laxative) 8.6 mg PO BEDTIME 90 tabs 3RF constipation K59.00 - Constipation, unspecified Refilled famotidine 40 mg PO BEDTIME PRN 30 tabs 3RF acid reflux K21.9 - Gastro- esophageal reflux disease without esophagitis
== END 2023-10-02 09:20 | disposition home or self-care (01) ==
PROVIDERS: PCP Internal Medicine; Visit Provider Nurse Practitioner Family
DX: K59.1 Functional diarrhea (principal); K44.9 Diaphragmatic hernia without obstruction or gangrene; K21.9 Gastro-esophageal reflux disease without esophagitis; K59.01 Slow transit constipation
CPT/HCPCS: 99213

== ENCOUNTER → 2023-10-02 08:37 | Outpatient (BNVA) | payer MEDICARE, SELFPAY | PROVIDERS: PCP Internal Medicine; Visit Provider Nurse Practitioner Family | DX: K44.9 Diaphragmatic hernia without obstruction or gangrene (principal); K21.9 Gastro-esophageal reflux disease without esophagitis; K59.00 Constipation, unspecified; R19.7 Diarrhea, unspecified | CPT/HCPCS: 99212 ==

== ENCOUNTER 2023-10-08 08:40 | Outpatient (AMB) | payer MEDICARE, SELFPAY ==
[2023-10-08 08:58] VITALS: BP 122/70; PULSE 62; O2SAT 98; BMI 27.8
--- NOTE | 2023-10-08 08:58 | A.OFFPC_ITS ---
Vital Signs 10/08/23 08:58 Height 5 ft 1 in Weight 147 lb BMI 27.8 BP 122/70 Blood Pressure Location Lt brachial Position Sitting Pulse 62 Pulse Source Pulse Oximeter Pulse Oximetry (%) 98 Oxygen Delivery Method Room Air Intake Visit Reasons: 9 Month follow up Admissions Consultant Required: No Accompanied by: Self / Same As Patient Allergies azithromycin [Zithromax Z-Jan] Allergy (Unknown, Verified 10/08/23 09:04) hives hydrochlorothiazide Allergy (Unknown, Verified 10/08/23 09:04) low K+ lisinopril Allergy (Unknown, Verified 10/08/23 09:04) cough Medication List - Last Reconciled 10/08/23 by Janelle Orozco MD amlodipine 10 mg PO DAILY 90 days atenolol 25 mg PO DAILY cetirizine 10 mg PO DAILY 90 days cholecalciferol (vitamin D3) (Vitamin D3) 25 mcg PO DAILY esomeprazole magnesium (Nexium) 40 mg PO DAILY famotidine 40 mg PO BEDTIME PRN losartan 100 mg PO DAILY lovastatin 20 mg PO DAILY 90 days meclizine 12.5 mg PO ONCE 30 days sennosides (Natural Senna Laxative) 8.6 mg PO BEDTIME simethicone 125 mg PO BID-QID PRN sumatriptan succinate 50 mg PO ONCE PRN 90 days Tobacco use date assessed: 10/08/23 Fall risk assessment: No Falls in past year Last assessed Fall Risk: 10/08/23 Dental Screening Dental Screen Date: 10/08/23 Did you have a dental visit in the last 12 months?: Yes Did you have a dental problem in the last 6 months where you did not have access to dental care?: No Was dental information given to patient?: Patient has dentist HPI 9 Month follow up HPI Details Patient is 68 year female came in today for her regular follow-up appointment Hypertension: Blood pressure is stable now she is taking amlodipine 10 mg and losartan 100 mg and atenolol half a tablet of 25 mg Allergies are acting up these days, patient takes cetirizine daily around the year, and is asking if she can take Benadryl as needed which will be fine She also uses Flonase She sees a fee clerk as well every six-month due to diagnosis of skin cancer 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 Stable , has not had dizziness for a while Headaches are stable Hot function stable very rarely she feels short of breath, she has no longer seeing pattern storage clerk unless there is a problem Follow-up 3 months ? [facility] Medical History Seymour esophagus Chronic nasal congestion Lipid disorder Vitamin D deficiency Back pain, chronic Environmental allergies Depression, major, recurrent Hypertension, essential Chronic vertigo Surgical History Hx of colonoscopy History of esophagogastroduodenoscopy (EGD) Endometrial cyst of ovary History of tonsillectomy History of removal of skin mole Family History Father No problems noted. Mother HTN (hypertension) Brother No problems noted. Brother No problems noted. Sister No problems noted. Son No problems noted. Social History Housing: House Patient Tobacco Use Status: Former Tobacco user Quit Date: age 30 e-Cigarette/Vaping Use: Never Used Current occupational status: employed Cognitive needs: No Hearing needs: No Vision needs: Yes Questionnaire Thrive Questionnaire Date Thrive assessed: 07/18/23 ROOPA-7 AMB Questionnaire ROOPA-7 Date ROOPA - 7 assessed: 07/18/23 Source: Developed by Drs. Saw Zavaleta, Karen Arellano, Ferny Gonzalez and colleagues, with an educational aisha from [employer]. Review of Systems Const Denies chills and Denies fever(s) ENT Denies epistaxis and Denies nasal discharge Card Denies chest pain Resp Denies chest congestion, Denies cough and Denies hemoptysis GI Denies diarrhea and Denies nausea Skin/Breast Denies rash Neuro Reports no additional complaints Psych Reports no additional complaints Endo Reports no additional complaints Physical exam (Primary Care) Vital Signs: Last Vital Signs Pulse 62 10/08/23 08:58 BP 122/70 10/08/23 08:58 Pulse Ox 98 10/08/23 08:58 Oxygen Delivery Method Room Air 10/08/23 08:58 BMI result Body Mass Index 27.8 Tobacco/Smoking Status: Tobacco use Status Tobacco use date assessed 10/08/23 10/08/23 08:59 Patient Tobacco Use Status Former Tobacco user 10/08/23 08:59 e-Cigarette/Vaping Use Never Used 10/08/23 08:59 Thrive Assessment: Date of Thrive Assessment Date Thrive assessed 07/18/23 10/08/23 08:59 Const General: cooperative, comfortable and no acute distress Orientation/consciousness: patient oriented x3 HENMT Head: Yes normocephalic Eyes General: appearance normal, both eyes and all related structures Neck Neck: Yes supple Resp Effort & Inspection: normal respiratory effort, no cough and no stridor Cardio Rhythm: regular rhythm Heart sounds: S1 normal heart sound present and S2 normal heart sound present Skin General skin exam: turgor normal Neuro General: patient oriented x3, tone normal and moves all extremities Extrem Right lower extremity: no edema Left lower extremity: no edema Assessment and Plan Assessment & Plan (1) Hypertension, essential: Code(s): I10 - Essential (primary) hypertension (2) Chronic vertigo: Code(s): R42 - Dizziness and giddiness (3) Environmental allergies: Code(s): Z91.09 - Other allergy status, other than to drugs and biological substances (4) Vitamin D deficiency: Code(s): E55.9 - Vitamin D deficiency, unspecified (5) Lipid disorder: Code(s): E78.9 - Disorder of lipoprotein metabolism, unspecified (6) Hiatal hernia: Code(s): K44.9 - Diaphragmatic hernia without obstruction or gangrene Plan Patient is 68 year female came in today for her regular follow-up appointment Hypertension: Blood pressure is stable now she is taking amlodipine 10 mg and losartan 100 mg and atenolol half a tablet of 25 mg Allergies are acting up these days, patient takes cetirizine daily around the year, and is asking if she can take Benadryl as needed which will be fine She also uses Flonase She sees a fee clerk as well every six-month due to diagnosis of skin cancer 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 Stable , has not had dizziness for a while Headaches are stable Hot function stable very rarely she feels short of breath, she has no longer seeing pattern storage clerk unless there is a problem Follow-up 3 months ? Orders: Orders Complete Blood Count Auto Diff Today E55.9 - Vitamin D deficiency, unspecified, E78.9 - Disorder of lipoprotein metabolism, unspecified, I10 - Essential (primary) hypertension, K44.9 - Diaphragmatic hernia without obstruction or gangrene, R42 - Dizziness and giddiness, Z91.09 - Other allergy status, other than to drugs and biological substances Comprehensive [place]. Panel Fast Today E55.9 - Vitamin D deficiency, unspecified, E78.9 - Disorder of lipoprotein metabolism, unspecified, I10 - Essential (primary) hypertension, K44.9 - Diaphragmatic hernia without obstruction or gangrene, R42 - Dizziness and giddiness, Z91.09 - Other allergy status, other than to drugs and biological substances Lipid Panel Today E55.9 - Vitamin D deficiency, unspecified, E78.9 - Disorder of lipoprotein metabolism, unspecified, I10 - Essential (primary) hypertension, K44.9 - Diaphragmatic hernia without obstruction or gangrene, R42 - Dizziness and giddiness, Z91.09 - Other allergy status, other than to drugs and biological substances Vitamin D 25-OH (D2 and D3) Today E55.9 - Vitamin D deficiency, unspecified, E78.9 - Disorder of lipoprotein metabolism, unspecified, I10 - Essential (primary) hypertension, K44.9 - Diaphragmatic hernia without obstruction or gangrene, R42 - Dizziness and giddiness, Z91.09 - Other allergy status, other than to drugs and biological substances Medications: Refilled cetirizine 10 mg PO DAILY 90 days 90 tabs 3RF Coding Level of Care Code Est Pt Level 4 (70635) Diagnoses Hypertension, essential I10 Chronic vertigo R42 Environmental allergies Z91.09 Vitamin D deficiency E55.9 Lipid disorder E78.9 Hiatal hernia K44.9
== END 2023-10-08 09:37 | disposition home or self-care (01) ==
PROVIDERS: PCP Internal Medicine; Visit Provider Internal Medicine
DX: I10 Essential (primary) hypertension (principal); R42 Dizziness and giddiness; Z91.09 Other allergy status, other than to drugs and biological substances; E55.9 Vitamin D deficiency, unspecified; E78.9 Disorder of lipoprotein metabolism, unspecified; K44.9 Diaphragmatic hernia without obstruction or gangrene
CPT/HCPCS: 99214

== ENCOUNTER 2024-01-07 08:58 | Outpatient (REF) | payer MEDICARE, SELFPAY ==
[2024-01-07 10:06] LABS: MANUAL DIFF FLAG NO
[2024-01-07 10:27] LABS: Basophils Percent Auto 0.8 % (0-2); Eosinophils Absolute Auto 0.1 X10*3/uL (0.0-0.4); Eosinophils Percent Auto 1.9 % (0-4); Hematocrit 41.3 % (37.0-47.0); Hemoglobin 13.9 g/dl (12.0-16.0); Imm Gran Abs Auto 0.01 X10*3/uL (0.00-0.03); Imm Gran Pct Auto 0.2 % (0.0-0.4); Lymphocytes Absolute Auto 1.8 X10*3/uL (1.2-4.9); Lymphocytes Percent Auto 38.3 % (20-40); Mean Corpuscular HGB Conc 33.7 g/dl (31.0-35.0); Mean Corpuscular Hemoglobin 30.4 pg (27.0-33.0); Mean Corpuscular Volume 90.4 fL (80.0-98.0); Mean Platelet Volume 10.2 fL (9.4-12.3); Monocytes Absolute Auto 0.4 X10*3/uL (0.1-1.2); Monocytes Percent Auto 8.2 % (2-11); Neutrophils Absolute Auto 2.4 x10*3/uL (2.0-8.3); Neutrophils Percent Auto 50.6 % (45-73); Platelet Count 286 X10*3/uL (160-400); Red Blood Count 4.57 X10*6/uL (4.20-5.50); Red Cell Distribution Width 13.4 % (11.0-16.0); White Blood Count 4.8 X10*3/uL (4.8-10.8)
[2024-01-07 10:55] LABS: Alanine Aminotransferase 16 U/L (0-31); Albumin Level 4.1 g/dL (3.5-5.0); Alkaline Phosphatase 77 U/L (39-117); Anion Gap 12 (12-20); Aspartate Amino Transferase 15 U/L (5-31); Bilirubin Total 0.4 mg/dL (0.0-1.0); Blood Urea Nitrogen 10 mg/dL (9-16); Calcium 10.2 mg/dL (8.4-10.2); Carbon Dioxide 24 mmol/L (22-29); Chloride 107 mmol/L (96-108); Cholesterol 202 mg/dL (<200); Estimated Glomerular Filt Rate > 60; Glucose Fasting 90 mg/dL (60-99); HDL Cholesterol 68 mg/dL (>40); LDL Cholesterol Calculated 113 mg/dL (<100); Potassium 4.1 mmol/L (3.3-5.1); Sodium 139 mmol/L (135-145); Total Protein 6.7 g/dL (6.5-8.0); Triglycerides 108 mg/dL (<150)
[2024-01-12 15:28] LABS: Vitamin D 25-OH, D2 <4 ng/mL; Vitamin D 25-OH, D3 46 ng/mL; Vitamin D 25-OH, Total 46 ng/mL (30-100)
== END 2024-01-07 08:59 | disposition home or self-care (01) ==
LOC: HO.HMGCLDS 08:58
PROVIDERS: PCP Internal Medicine; Visit Provider Internal Medicine
DX: I10 Essential (primary) hypertension (principal); R42 Dizziness and giddiness; E55.9 Vitamin D deficiency, unspecified; E78.9 Disorder of lipoprotein metabolism, unspecified; K44.9 Diaphragmatic hernia without obstruction or gangrene; Z91.09 Other allergy status, other than to drugs and biological substances
CPT/HCPCS: 36415; 80053; 80061; 82306; 85025

== ENCOUNTER 2024-01-21 09:32 | Outpatient (AMB) | payer MEDICARE, SELFPAY ==
[2024-01-21 09:34] VITALS: BP 130/78; PULSE 61; O2SAT 98; BMI 28.2
--- NOTE | 2024-01-21 09:34 | MHC.PC.OV ---
Vital Signs 01/21/24 09:34 Height 5 ft 1 in Weight 149 lb 2 oz BMI 28.2 BP 130/78 Blood Pressure Location Rt brachial Position Sitting Pulse 61 Pulse Source Pulse Oximeter Pulse Oximetry (%) 98 Oxygen Delivery Method Room Air Intake Visit Reasons: 3 Month follow up Allergies azithromycin [Zithromax Z-Jan] Allergy (Unknown, Verified 01/21/24 09:36) hives hydrochlorothiazide Allergy (Unknown, Verified 01/21/24 09:36) low K+ lisinopril Allergy (Unknown, Verified 01/21/24 09:36) cough Medication List - Last Reconciled 01/21/24 by Janelle Orozco MD amlodipine 10 mg PO DAILY 90 days atenolol 25 mg PO DAILY cetirizine 10 mg PO DAILY 90 days cholecalciferol (vitamin D3) (Vitamin D3) 25 mcg PO DAILY esomeprazole magnesium (Nexium) 40 mg PO DAILY famotidine 40 mg PO BEDTIME PRN losartan 100 mg PO DAILY lovastatin 20 mg PO DAILY 90 days meclizine 12.5 mg PO ONCE 30 days sennosides (Natural Senna Laxative) 8.6 mg PO BEDTIME simethicone 125 mg PO BID-QID PRN sumatriptan succinate 50 mg PO ONCE PRN 90 days Tobacco use date assessed: 01/21/24 Fall risk assessment: No Falls in past year Last assessed Fall Risk: 01/21/24 Dental Screening Dental Screen Date: 01/21/24 Did you have a dental visit in the last 12 months?: Yes Did you have a dental problem in the last 6 months where you did not have access to dental care?: No Was dental information given to patient?: Patient has dentist HPI 3 Month follow up HPI Details Patient is 69 year female came in today for her regular follow-up appointment Stress/anxiety, can not sleep at night , patient admits that mind does not rest, she tells me that she has always been like that I am starting her on Lexapro 5 mg hoping that that will help her sleep at night She is to get back to me if she can not tolerate medication Hypertension: Blood pressure is stable now she is taking amlodipine 10 mg and losartan 100 mg and atenolol half a tablet of 25 mg Allergies : patient takes cetirizine daily around the year, She also uses Flonase She sees a parts sales representative as well every six-month due to diagnosis of skin cancer Patient have a history of back injury , 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 Stable , has not had dizziness for a while Headaches are stable Follow-up 3 months ? [facility] Medical History Seymour esophagus Chronic nasal congestion Lipid disorder Vitamin D deficiency Back pain, chronic Environmental allergies Depression, major, recurrent Hypertension, essential Chronic vertigo Surgical History Hx of colonoscopy History of esophagogastroduodenoscopy (EGD) Endometrial cyst of ovary History of tonsillectomy History of removal of skin mole Family History Father No problems noted. Mother HTN (hypertension) Brother No problems noted. Brother No problems noted. Sister No problems noted. Son No problems noted. Social History Housing: House Patient Tobacco Use Status: Former Tobacco user e-Cigarette/Vaping Use: Never Used Current occupational status: employed Cognitive needs: No Hearing needs: No Vision needs: Yes Questionnaire PHQ-9 Over the last 2 weeks, how often have you been bothered by any of the following problems? 1. Little interest or pleasure in doing things: not at all 2. Feeling down, depressed, or hopeless: not at all 3. Trouble falling or staying asleep, or sleeping too much: several days 4. Feeling tired or having little energy: several days 5. Poor appetite or overeating: not at all 6. Feeling bad about yourself - or that you are a failure or have let yourself or your family down: not at all 7. Trouble concentrating on things, such as reading the newspaper or watching television: not at all 8. Moving or speaking so slowly that other people could have noticed. Or the opposite - being so fidgety or restless that you have been moving around a lot more than usual: not at all 9. Thoughts that you would be better off or of hurting yourself in some way: not at all Total score: 2 Depression Screening Interpretation: Negative Depression Screening Done: Yes 21524 - PHQ-9 Billing: Yes Source: Developed by Drs. Saw Zavaleta, Karen Arellano, Ferny Gonzalez and colleagues, with an educational aisha from [employer]. Thrive Questionnaire Date Thrive assessed: 01/21/24 I am a: Patient What is your living situation today?: I have a steady place to live Within the past 12 months, did the food you bought not last and you didn't have the money to get more?: Never true Within the past 12 months, did you worry whether your food would run out before you got money to buy more?: Never true Do you have trouble paying for medicines?: No Do you have trouble getting transportation to medical appointments?: No Do you have trouble paying your heating and electricity bill?: No Do you have trouble taking care of your child, family member or friend?: No Do you have trouble with day-to-day activities such as bathing, preparing meals, shopping, managing finances, etc.?: No Are you currently unemployed and looking for a job?: No Are you interested in more education?: No Please select the resources that you would like help with: Housing/Fpc Currently or been in a relationship where the following occur: No concerns reported THRIVE Score: 0 AUDIT C Alcohol Use Questionnaire (AUDIT-C) 1. How often do you have a drink containing alcohol?: Never 3. How often do you have six or more drinks on one occasion?: Never Total Score: 0 Score Reviewed/Action Taken: Yes ROOPA-7 AMB Questionnaire ROOPA-7 Date ROOPA - 7 assessed: 01/21/24 Feeling nervous, anxious, or on edge: 0 = Not at all Not being able to stop or control worryin = Not at all Worrying too much about different things: 0 = Not at all Trouble relaxin = Several days Being so restless that it is hard to sit still: 0 = Not at all Becoming easily annoyed or irritable: 0 = Not at all Feeling afraid as if something awful might happen: 0 = Not at all Total ROOPA-7 score (0-4 normal; 5-9 mild; 10-14 moderate; 15-21 severe): 1 Source: Developed by Drs. Saw Zavaleta, Karen Arellano, Ferny Gonzalez and colleagues, with an educational aisha from [employer]. ROOAP-7 Assessment Billing ROOPA-7 Assessment Tool: ROOPA-7 Assessment 66719 Review of Systems Const Denies chills and Denies fever(s) ENT Denies epistaxis and Denies nasal discharge Card Denies chest pain Resp Denies chest congestion, Denies cough and Denies hemoptysis GI Denies diarrhea and Denies nausea Skin/Breast Denies rash Neuro Reports no additional complaints Psych Reports no additional complaints Endo Reports no additional complaints Physical exam (Primary Care) Vital Signs: Last Vital Signs Pulse 61 01/21/24 09:34 BP 130/78 01/21/24 09:34 Pulse Ox 98 01/21/24 09:34 Oxygen Delivery Method Room Air 01/21/24 09:34 BMI result Body Mass Index 28.2 Tobacco/Smoking Status: Tobacco use Status Tobacco use date assessed 01/21/24 01/21/24 09:37 Patient Tobacco Use Status Former Tobacco user 01/21/24 09:37 e-Cigarette/Vaping Use Never Used 01/21/24 09:37 PHQ-9: PHQ-9 Score PHQ-9: Total score 2 01/21/24 10:08 Depression Screening Interpretation: Negative Thrive Assessment: Date of Thrive Assessment Date Thrive assessed 01/21/24 01/21/24 09:37 Currently or been in a relationship where the following occur: No concerns reported Const General: cooperative, comfortable and no acute distress Orientation/consciousness: patient oriented x3 HENMT Head: Yes normocephalic Eyes General: appearance normal, both eyes and all related structures Neck Neck: Yes supple Resp Effort & Inspection: normal respiratory effort, no cough and no stridor Cardio Rhythm: regular rhythm Heart sounds: S1 normal heart sound present and S2 normal heart sound present Skin General skin exam: turgor normal Neuro General: patient oriented x3, tone normal and moves all extremities Extrem Right lower extremity: no edema Left lower extremity: no edema Assessment and Plan Assessment & Plan (1) Hypertension, essential: Code(s): I10 - Essential (primary) hypertension (2) Lipid disorder: Code(s): E78.9 - Disorder of lipoprotein metabolism, unspecified (3) Chronic vertigo: Code(s): R42 - Dizziness and giddiness (4) Environmental allergies: Code(s): Z91.09 - Other allergy status, other than to drugs and biological substances (5) Vitamin D deficiency: Code(s): E55.9 - Vitamin D deficiency, unspecified (6) Hiatal hernia: Code(s): K44.9 - Diaphragmatic hernia without obstruction or gangrene Plan Patient is 69 year female came in today for her regular follow-up appointment Stress/anxiety, can not sleep at night , patient admits that mind does not rest, she tells me that she has always been like that I am starting her on Lexapro 5 mg hoping that that will help her sleep at night She is to get back to me if she can not tolerate medication Hypertension: Blood pressure is stable now she is taking amlodipine 10 mg and losartan 100 mg and atenolol half a tablet of 25 mg Allergies : patient takes cetirizine daily around the year, She also uses Flonase She sees a parts sales representative as well every six-month due to diagnosis of skin cancer Patient have a history of back injury , 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 Stable , has not had dizziness for a while Headaches are stable Follow-up 3 months ? Medications: New escitalopram oxalate (Lexapro) 5 mg PO DAILY 90 tabs 0RF Coding Level of Care Code Est Pt Level 4 (90807) Diagnoses Hypertension, essential I10 Lipid disorder E78.9 Chronic vertigo R42 Environmental allergies Z91.09 Vitamin D deficiency E55.9 Hiatal hernia K44.9 Additional Codes ROOPA-7 Assessment Billing - ROOPA-7 Assessment Tool: ROOPA-7 Assessment 11420 ([id number])
== END 2024-01-21 09:50 | disposition home or self-care (01) ==
PROVIDERS: PCP Internal Medicine; Visit Provider Internal Medicine
DX: I10 Essential (primary) hypertension (principal); E78.9 Disorder of lipoprotein metabolism, unspecified; R42 Dizziness and giddiness; Z91.09 Other allergy status, other than to drugs and biological substances; E55.9 Vitamin D deficiency, unspecified; K44.9 Diaphragmatic hernia without obstruction or gangrene
CPT/HCPCS: 99214

== ENCOUNTER 2024-04-03 08:35 | Outpatient (AMB) | payer MEDICARE, SELFPAY ==
--- NOTE | 2024-04-03 08:49 | MHC.OFFVIS ---
Vital Signs 04/03/24 08:51 Height 5 ft 1 in Weight 148 lb 9.465 oz BMI 28.1 BP 132/58 L Blood Pressure Location Rt brachial Position Sitting Pulse 52 Pulse Source Pulse Oximeter Pulse Oximetry (%) 96 Oxygen Delivery Method Room Air Intake Visit Reasons: 6 month follow up Intake Note: Janette presents in office today for a scheduled 6 mos FUV. CC: Pt was given orders for -- Famotidine, and senna. Labs via PCP as of 01/07/2024. Pt reports that they have been doing slightly worse since their last visit. Pt reports having worsening diarrhea, denies any constipation. Pt reports having mild to moderate abd cramping however, she states that this is a rather chronic presentation for her. Allergies azithromycin [Zithromax Z-Jan] Allergy (Unknown, Verified 04/03/24 08:50) hives hydrochlorothiazide Allergy (Unknown, Verified 04/03/24 08:50) low K+ lisinopril Allergy (Unknown, Verified 04/03/24 08:50) cough HPI HPI 6 month follow up: Details: LAST VISIT Diarrhea Hiatal hernia GERD (gastroesophageal reflux disease) Constipation Plan Continue Nexium and famotidine. Patient was encouraged to avoid dietary triggers and late night snacking. Eating smaller meals and more often. Staying upright for minimum 3 hours after meals discussed with patient. Continue high-fiber diet. Patient may take fiber supplements. Patient was given script for senna. Encouraged to increase fluid intake and activity to promote better bowel motility. Low FODMAP diet discussed with patient as well. She will return in 6 months, sooner on as needed basis. Patient is agreeable to this plan and verbalizes understanding of instructions. She was given the opportunity to ask questions and all questions answered. ? Thank you for allowing me to participate in her care Medications New sennosides (Natural Senna Laxative) 8.6 mg PO BEDTIME 90 tabs 3RF constipation K59.00 Refilled famotidine 40 mg PO BEDTIME PRN 30 tabs 3RF acid reflux K21.9 TODAY'S VISIT Patient is here today for follow-up. Patient reports that she has been feeling well takes Nexium and her symptoms of acid reflux have been controlled. Patient only takes famotidine on as needed basis maybe once a week or so. Recently patient states that she has been having more diarrhea. Takes Citrucel in the morning and senna at night time. Patient also has been eating lot of watermelon, thinks that maybe her symptoms are related to eating watermelon and not the senna. Patient denies any melena, hematochezia. Patient denies any dyspepsia, dysphagia or odynophagia. Patient reports abdominal bloating postprandially. Denies any nausea or vomiting. Patient reports that she is avoiding heavy and fatty foods. [facility] Medical History Seymour esophagus Chronic nasal congestion Lipid disorder Vitamin D deficiency Back pain, chronic Environmental allergies Depression, major, recurrent Hypertension, essential Chronic vertigo Surgical History Hx of colonoscopy History of esophagogastroduodenoscopy (EGD) Endometrial cyst of ovary History of tonsillectomy History of removal of skin mole Family History Father No problems noted. Mother HTN (hypertension) Brother No problems noted. Brother No problems noted. Sister No problems noted. Son No problems noted. Social History Housing: House Patient Tobacco Use Status: Former Tobacco user e-Cigarette/Vaping Use: Never Used Current occupational status: employed Cognitive needs: No Hearing needs: No Vision needs: Yes Review of Systems Const Denies weight gain and Denies weight loss ENT Reports no additional complaints, Denies dysphagia and Denies odynophagia Card Reports no additional complaints Resp Reports no additional complaints GI Denies abdominal pain, Denies belching, Denies melena, Reports bloating, Denies change in bowel habits, Denies dysphagia, Denies excessive flatus, Denies dyspepsia, Reports heartburn, Denies diarrhea, Reports loose stools, Denies nausea, Denies odynophagia and Denies vomiting Reports no additional complaints Musc Reports no additional complaints Neuro Reports no additional complaints Psych Reports no additional complaints Endo Reports no additional complaints Physical Exam Vital Signs: Last Vital Signs Pulse 52 04/03/24 08:51 BP 132/58 L 04/03/24 08:51 Pulse Ox 96 04/03/24 08:51 Oxygen Delivery Method Room Air 04/03/24 08:51 BMI result Body Mass Index 28.1 Const General: healthy appearing, no acute distress and well developed Nutritional Appearance: well nourished Orientation/consciousness: patient oriented x3 Resp Effort & Inspection: normal respiratory effort, able to speak in complete sentences, no tracheal deviation and symmetric chest movement Auscultation: clear to auscultation bilaterally Cardio Rate: regular rate GI Inspection: Yes normal to inspection and No distended Palpation (GI): Soft to palpation, not firm, nontender and No hepatosplenomegaly present Auscultation: normal bowel sounds General: Yes no CVA tenderness Back/Spine/Pelvis Back: no CVA tenderness Skin General skin exam: elasticity normal, turgor normal and dry skin Neuro General: patient oriented x3 Psych Appearance: grossly normal Mental Status: mental status grossly normal Assessment & Plan Assessment & Plan (1) Diarrhea: Code(s): R19.7 - Diarrhea, unspecified Category: Medical Qualifiers: Diarrhea type: functional diarrhea Qualified Code(s): K59.1 - Functional diarrhea (2) Hiatal hernia: Code(s): K44.9 - Diaphragmatic hernia without obstruction or gangrene Category: Medical (3) GERD (gastroesophageal reflux disease): Code(s): K21.9 - Gastro-esophageal reflux disease without esophagitis Qualifiers: Esophagitis presence: esophagitis presence not specified Qualified Code(s): K21.9 - Gastro-esophageal reflux disease without esophagitis (4) Constipation: Code(s): K59.00 - Constipation, unspecified Qualifiers: Constipation type: slow transit constipation Qualified Code(s): K59.01 - Slow transit constipation (5) Postprandial abdominal bloating: Code(s): R14.0 - Abdominal distension (gaseous) Plan Patient will continue Nexium in the morning. Avoid dietary triggers and late night snacking. Staying upright for minimum 3 hours discussed with patient. Patient will take famotidine on as needed basis. Discussed with patient low FODMAP diet. List of food recommended as well as list of food to avoid given to patient. Patient will take fiber supplement, will try to get probiotic and take it daily. Increase fluid intake and activity to promote better bowel motility. May take senna on as-needed basis. Patient is agreeable to this plan and verbalizes understanding of instructions. She was given the opportunity to ask questions and all questions answered. Thank you for allowing me to participate in her care Medications: New simethicone (Gas Relief (simethicone)) 80 mg PO TID-QID PRN 120 tabs 4RF abdominal distention Refilled esomeprazole magnesium (Nexium) 40 mg PO DAILY 90 caps 2RF K21.9 - Gastro-esophageal reflux disease without esophagitis Coding Level of Care Code Est Pt Level 3 (25829) Diagnoses Functional diarrhea K59.1 Diarrhea type: functional diarrhea Hiatal hernia K44.9 Gastroesophageal reflux disease, unspecified whether esophagitis present K21.9 Esophagitis presence: esophagitis presence not specified Slow transit constipation K59.01 Constipation type: slow transit constipation Postprandial abdominal bloating R14.0 Time Spent (min) 25 Comment 15 minutes spent with patient and additional 10 minutes spent reviewing her records
[2024-04-03 08:51] VITALS: BP 132/58; PULSE 52; O2SAT 96; BMI 28.1
== END 2024-04-03 09:28 | disposition home or self-care (01) ==
PROVIDERS: PCP Internal Medicine; Visit Provider Nurse Practitioner Family
DX: K59.1 Functional diarrhea (principal); K44.9 Diaphragmatic hernia without obstruction or gangrene; K21.9 Gastro-esophageal reflux disease without esophagitis; K59.01 Slow transit constipation; R14.0 Abdominal distension (gaseous)
CPT/HCPCS: 99213

== ENCOUNTER → 2024-04-03 08:35 | Outpatient (BNVA) | payer MEDICARE, SELFPAY | PROVIDERS: PCP Internal Medicine; Visit Provider Nurse Practitioner Family | DX: K21.9 Gastro-esophageal reflux disease without esophagitis (principal); K59.1 Functional diarrhea; K44.9 Diaphragmatic hernia without obstruction or gangrene; K59.01 Slow transit constipation; R14.0 Abdominal distension (gaseous); R10.9 Unspecified abdominal pain | CPT/HCPCS: 99212 ==

== ENCOUNTER 2024-04-07 09:06 | Outpatient (AMB) | payer MEDICARE, SELFPAY ==
--- NOTE | 2024-04-07 09:09 | A.OFFPC_ITS ---
Vital Signs 04/07/24 09:20 Height 5 ft 1 in Weight 149 lb 8 oz BMI 28.2 BP 140/80 H Blood Pressure Location Rt brachial Position Sitting Pulse 55 Pulse Source Pulse Oximeter Pulse Oximetry (%) 98 Oxygen Delivery Method Room Air Intake Visit Reasons: 3 Month F/U Allergies azithromycin [Zithromax Z-Jan] Allergy (Unknown, Verified 04/07/24 09:20) hives hydrochlorothiazide Allergy (Unknown, Verified 04/07/24 09:20) low K+ lisinopril Allergy (Unknown, Verified 04/07/24 09:20) cough Medication List - Last Reconciled 04/07/24 by Janelle Orozco MD amlodipine 10 mg PO DAILY 90 days atenolol 25 mg PO DAILY cetirizine 10 mg PO DAILY 90 days cholecalciferol (vitamin D3) (Vitamin D3) 25 mcg PO DAILY escitalopram oxalate (Lexapro) 5 mg PO DAILY esomeprazole magnesium (Nexium) 40 mg PO DAILY famotidine 40 mg PO BEDTIME PRN losartan 100 mg PO DAILY lovastatin 20 mg PO DAILY 90 days meclizine 12.5 mg PO ONCE 30 days sennosides (Natural Senna Laxative) 8.6 mg PO BEDTIME simethicone 125 mg PO BID-QID PRN simethicone (Gas Relief (simethicone)) 80 mg PO TID-QID PRN sumatriptan succinate 50 mg PO ONCE PRN 90 days Tobacco use date assessed: 04/07/24 Fall risk assessment: No Falls in past year Last assessed Fall Risk: 04/07/24 Dental Screening Dental Screen Date: 04/07/24 Did you have a dental visit in the last 12 months?: Yes Did you have a dental problem in the last 6 months where you did not have access to dental care?: No Was dental information given to patient?: Patient has dentist HPI 3 Month F/U HPI Details Patient is 69 year female came in today for her regular follow-up appointment Stress/anxiety, has improved a lot after starting Lexapro 5 mg Patient says that she takes it in the evening and is able to sleep better however would like to go up on the dose Lexapro 10 mg sent Hypertension: she is taking amlodipine 10 mg and losartan 100 mg and atenolol half a tablet of 25 mg It is slightly elevated today, we will continue to monitor Allergies : patient takes cetirizine daily around the year, She also uses Flonase She sees a classroom paraprofessional as well every six-month due to diagnosis of skin cancer Patient have a history of back injury , 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 Stable , has not had dizziness for a while Headaches are stable Follow-up 3 months ? [facility] Medical History Seymour esophagus Chronic nasal congestion Lipid disorder Vitamin D deficiency Back pain, chronic Environmental allergies Depression, major, recurrent Hypertension, essential Chronic vertigo Surgical History Hx of colonoscopy History of esophagogastroduodenoscopy (EGD) Endometrial cyst of ovary History of tonsillectomy History of removal of skin mole Family History Father No problems noted. Mother HTN (hypertension) Brother No problems noted. Brother No problems noted. Sister No problems noted. Son No problems noted. Social History Housing: House Patient Tobacco Use Status: Former Tobacco user e-Cigarette/Vaping Use: Never Used Current occupational status: employed Cognitive needs: No Hearing needs: No Vision needs: Yes Questionnaire Thrive Questionnaire Date Thrive assessed: 04/07/24 I am a: Patient What is your living situation today?: I have a steady place to live Within the past 12 months, did the food you bought not last and you didn't have the money to get more?: Never true Within the past 12 months, did you worry whether your food would run out before you got money to buy more?: Never true Do you have trouble paying for medicines?: No Do you have trouble getting transportation to medical appointments?: No Do you have trouble paying your heating and electricity bill?: No Do you have trouble taking care of your child, family member or friend?: No Do you have trouble with day-to-day activities such as bathing, preparing meals, shopping, managing finances, etc.?: No Are you currently unemployed and looking for a job?: No Are you interested in more education?: No Please select the resources that you would like help with: None Currently or been in a relationship where the following occur: No concerns reported THRIVE Score: 0 AUDIT C Alcohol Use Questionnaire (AUDIT-C) 1. How often do you have a drink containing alcohol?: Never 3. How often do you have six or more drinks on one occasion?: Never Total Score: 0 Score Reviewed/Action Taken: Yes ROOPA-7 AMB Questionnaire ROOPA-7 Date ROOPA - 7 assessed: 01/21/24 Source: Developed by Drs. Saw Zavaleta, Karen Arellano, Ferny Gonzalez and colleagues, with an educational aisha from [employer]. Review of Systems Const Denies chills and Denies fever(s) ENT Denies epistaxis and Denies nasal discharge Card Denies chest pain Resp Denies chest congestion, Denies cough and Denies hemoptysis GI Denies diarrhea and Denies nausea Skin/Breast Denies rash Neuro Reports no additional complaints Psych Reports no additional complaints Endo Reports no additional complaints Physical exam (Primary Care) Vital Signs: Last Vital Signs Pulse 55 04/07/24 09:20 BP 140/80 H 04/07/24 09:20 Pulse Ox 98 04/07/24 09:20 Oxygen Delivery Method Room Air 04/07/24 09:20 BMI result Body Mass Index 28.2 Tobacco/Smoking Status: Tobacco use Status Tobacco use date assessed 04/07/24 04/07/24 09:21 Patient Tobacco Use Status Former Tobacco user 04/07/24 09:11 e-Cigarette/Vaping Use Never Used 04/07/24 09:11 Thrive Assessment: Date of Thrive Assessment Date Thrive assessed 04/07/24 04/07/24 09:21 Currently or been in a relationship where the following occur: No concerns reported Const General: cooperative, comfortable and no acute distress Orientation/consciousness: patient oriented x3 HENMT Head: Yes normocephalic Eyes General: appearance normal, both eyes and all related structures Neck Neck: Yes supple Resp Effort & Inspection: normal respiratory effort, no cough and no stridor Cardio Rhythm: regular rhythm Heart sounds: S1 normal heart sound present and S2 normal heart sound present Skin General skin exam: turgor normal Neuro General: patient oriented x3, tone normal and moves all extremities Extrem Right lower extremity: no edema Left lower extremity: no edema Coding Level of Care Code Est Pt Level 4 (45439) Complex EM visit Add On G2211 Diagnoses Hypertension, essential I10 Lipid disorder E78.9 Recurrent major depressive disorder, in full remission F33.42 Active/Remission status: in full remission Chronic vertigo R42 Hiatal hernia K44.9 Headache syndrome G44.89 Difficulty sleeping G47.9 Anxiety, generalized F41.1 Chronic midline low back pain without sciatica M54.50; G89.29 Back pain laterality: midline Sciatica presence: without sciatica Environmental allergies Z91.09 Vitamin D deficiency E55.9 Assessment & Plan Assessment & Plan (1) Hypertension, essential: Code(s): I10 - Essential (primary) hypertension Category: Medical (2) Lipid disorder: Code(s): E78.9 - Disorder of lipoprotein metabolism, unspecified Category: Medical (3) Depression, major, recurrent: Code(s): F33.9 - Major depressive disorder, recurrent, unspecified Category: Medical Qualifiers: Active/Remission status: in full remission Qualified Code(s): F33.42 - Major depressive disorder, recurrent, in full remission (4) Chronic vertigo: Code(s): R42 - Dizziness and giddiness Category: Medical (5) Hiatal hernia: Code(s): K44.9 - Diaphragmatic hernia without obstruction or gangrene Category: Medical (6) Headache syndrome: Code(s): G44.89 - Other headache syndrome Category: Medical (7) Difficulty sleeping: Code(s): G47.9 - Sleep disorder, unspecified Category: Medical (8) Anxiety, generalized: Code(s): F41.1 - Generalized anxiety disorder Category: Medical (9) Chronic low back pain: Code(s): M54.50 - Low back pain, unspecified; G89.29 - Other chronic pain Category: Medical Qualifiers: Back pain laterality: midline Sciatica presence: without sciatica Qualified Code(s): M54.50 - Low back pain, unspecified; G89.29 - Other chronic pain (10) Environmental allergies: Code(s): Z91.09 - Other allergy status, other than to drugs and biological substances Category: Medical (11) Vitamin D deficiency: Code(s): E55.9 - Vitamin D deficiency, unspecified Category: Medical Plan Patient is 69 year female came in today for her regular follow-up appointment Stress/anxiety, has improved a lot after starting Lexapro 5 mg Patient says that she takes it in the evening and is able to sleep better however would like to go up on the dose Lexapro 10 mg sent Hypertension: she is taking amlodipine 10 mg and losartan 100 mg and atenolol half a tablet of 25 mg It is slightly elevated today, we will continue to monitor Allergies : patient takes cetirizine daily around the year, She also uses Flonase She sees a classroom paraprofessional as well every six-month due to diagnosis of skin cancer Patient have a history of back injury , 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 Stable , has not had dizziness for a while Headaches are stable Follow-up 3 months ? Orders: Orders Complete Blood Count Auto Diff 3 Months E55.9 - Vitamin D deficiency, unspecified, E78.9 - Disorder of lipoprotein metabolism, unspecified, F33.9 - Major depressive disorder, recurrent, unspecified, G44.89 - Other headache syndrome, I10 - Essential (primary) hypertension, K44.9 - Diaphragmatic hernia without obstruction or gangrene, R42 - Dizziness and giddiness, Z91.09 - Other allergy status, other than to drugs and biological substances Lipid Panel 3 Months E55.9 - Vitamin D deficiency, unspecified, E78.9 - Disorder of lipoprotein metabolism, unspecified, F33.9 - Major depressive disorder, recurrent, unspecified, G44.89 - Other headache syndrome, I10 - Essential (primary) hypertension, K44.9 - Diaphragmatic hernia without obstruction or gangrene, R42 - Dizziness and giddiness, Z91.09 - Other allergy status, other than to drugs and biological substances Comprehensive [place]. Panel Fast 3 Months E55.9 - Vitamin D deficiency, unspecified, E78.9 - Disorder of lipoprotein metabolism, unspecified, F33.9 - Major depressive disorder, recurrent, unspecified, G44.89 - Other headache syndrome, I10 - Essential (primary) hypertension, K44.9 - Diaphragmatic hernia without obstruction or gangrene, R42 - Dizziness and giddiness, Z91.09 - Other allergy status, other than to drugs and biological substances Medications: Changed From escitalopram oxalate (Lexapro) 5 mg PO DAILY 90 tabs 0RF To escitalopram oxalate 10 mg PO DAILY 90 tabs 0RF
[2024-04-07 09:20] VITALS: BP 140/80; PULSE 55; O2SAT 98; BMI 28.2
== END 2024-04-07 09:47 | disposition home or self-care (01) ==
PROVIDERS: PCP Internal Medicine; Visit Provider Internal Medicine
DX: I10 Essential (primary) hypertension (principal); E78.9 Disorder of lipoprotein metabolism, unspecified; F33.42 Major depressive disorder, recurrent, in full remission; R42 Dizziness and giddiness; K44.9 Diaphragmatic hernia without obstruction or gangrene; G44.89 Other headache syndrome; G47.9 Sleep disorder, unspecified; F41.1 Generalized anxiety disorder; M54.50 Low back pain, unspecified; G89.29 Other chronic pain; Z91.09 Other allergy status, other than to drugs and biological substances; E55.9 Vitamin D deficiency, unspecified

== ENCOUNTER → 2024-04-07 09:06 | Outpatient (BNVA) | payer MEDICARE, SELFPAY | PROVIDERS: PCP Internal Medicine; Visit Provider Internal Medicine | DX: I10 Essential (primary) hypertension (principal); E78.9 Disorder of lipoprotein metabolism, unspecified; F33.42 Major depressive disorder, recurrent, in full remission; R42 Dizziness and giddiness; K44.9 Diaphragmatic hernia without obstruction or gangrene; G47.9 Sleep disorder, unspecified; F41.1 Generalized anxiety disorder; M54.50 Low back pain, unspecified; G89.29 Other chronic pain; E55.9 Vitamin D deficiency, unspecified; Z91.09 Other allergy status, other than to drugs and biological substances | CPT/HCPCS: 99212 ==

== ENCOUNTER 2024-05-04 12:06 | Outpatient (REF) | payer MEDICARE, SELFPAY ==
--- NOTE | ~2024-05-04 | MM_ITS ---
EXAMINATION: MM SCREENING DIGITAL BREAST TOMOSYNTHESIS, BILATERAL CLINICAL INFORMATION: Screening. Asymptomatic. COMPARISON: Mammography: Comparison is made with available priors TECHNIQUE: Digital breast mammography with tomosynthesis is performed in both the craniocaudal and mediolateral oblique views along with computer-aided detection (CAD). FINDINGS: There are scattered areas of fibroglandular density (ACR BI-RADS breast composition Category b). There are no significant masses, abnormal calcifications, or other abnormalities. MM/MM tomosynthesis screening BI IMPRESSION: No mammographic evidence of malignancy. ASSESSMENT: BI-RADS BI-RADS 1 - Negative RECOMMENDATION: Routine annual mammography screening. 1 year F/U This examination should not preclude the clinical evaluation of a suspicious palpable abnormality. This patient's information was entered into a reminder system with a target due date for their next mammogram. Electronically signed by: Lizzy Appiah DO 05/13/2024 12:07 PM JOSE ANGEL
== END 2024-05-04 12:07 | disposition home or self-care (01) ==
LOC: HO.MAMMO 12:06
PROVIDERS: Absent Provider Obstetrics & Gynecology; PCP Internal Medicine; Visit Provider Internal Medicine
DX: Z12.31 Encounter for screening mammogram for malignant neoplasm of breast (principal)
CPT/HCPCS: 77063; 77067

== ENCOUNTER → 2024-05-04 12:30 | Outpatient (BNV) | payer MEDICARE, SELFPAY | PROVIDERS: Absent Provider Obstetrics & Gynecology; PCP Internal Medicine; Visit Provider Internal Medicine | DX: Z12.31 Encounter for screening mammogram for malignant neoplasm of breast (principal) | CPT/HCPCS: 77063; 77067 ==

== ENCOUNTER 2024-06-30 07:17 | Outpatient (REF) | payer MEDICARE, SELFPAY ==
[2024-06-30 09:56] LABS: MANUAL DIFF FLAG NO
[2024-06-30 10:10] LABS: Basophils Percent Auto 0.6 % (0-2); Eosinophils Absolute Auto 0.1 X10*3/uL (0.0-0.4); Eosinophils Percent Auto 1.5 % (0-4); Hemoglobin 14.3 g/dl (12.0-16.0); Imm Gran Abs Auto 0.02 X10*3/uL (0.00-0.03); Imm Gran Pct Auto 0.4 % (0.0-0.4); Lymphocytes Absolute Auto 1.9 X10*3/uL (1.2-4.9); Lymphocytes Percent Auto 35.8 % (20-40); Mean Corpuscular HGB Conc 33.3 g/dl (31.0-35.0); Mean Corpuscular Hemoglobin 30.4 pg (27.0-33.0); Mean Corpuscular Volume 91.3 fL (80.0-98.0); Mean Platelet Volume 10.6 fL (9.4-12.3); Monocytes Absolute Auto 0.5 X10*3/uL (0.1-1.2); Monocytes Percent Auto 8.8 % (2-11); Neutrophils Absolute Auto 2.8 x10*3/uL (2.0-8.3); Neutrophils Percent Auto 52.9 % (45-73); Platelet Count 287 X10*3/uL (160-400); Red Blood Count 4.71 X10*6/uL (4.20-5.50); Red Cell Distribution Width 13.2 % (11.0-16.0); White Blood Count 5.3 X10*3/uL (4.8-10.8)
[2024-06-30 10:21] LABS: Alanine Aminotransferase 17 U/L (0-31); Albumin Level 4.1 g/dL (3.5-5.0); Alkaline Phosphatase 66 U/L (39-117); Anion Gap 8 (12-20); Aspartate Amino Transferase 18 U/L (5-31); Bilirubin Total 0.5 mg/dL (0.0-1.0); Blood Urea Nitrogen 18 mg/dL (9-16); Calcium 10.1 mg/dL (8.4-10.2); Carbon Dioxide 28 mmol/L (22-29); Chloride 107 mmol/L (96-108); Cholesterol 195 mg/dL (<200); Estimated Glomerular Filt Rate > 60; Glucose Fasting 90 mg/dL (60-99); HDL Cholesterol 69 mg/dL (>40); LDL Cholesterol Calculated 108 mg/dL (<100); Potassium 4.3 mmol/L (3.3-5.1); Sodium 139 mmol/L (135-145); Triglycerides 92 mg/dL (<150)
== END 2024-06-30 07:18 | disposition home or self-care (01) ==
LOC: HO.HMGCLDS 07:17
PROVIDERS: PCP Internal Medicine; Visit Provider Internal Medicine
DX: I10 Essential (primary) hypertension (principal); F33.9 Major depressive disorder, recurrent, unspecified; Z91.09 Other allergy status, other than to drugs and biological substances; R42 Dizziness and giddiness; E55.9 Vitamin D deficiency, unspecified; E78.9 Disorder of lipoprotein metabolism, unspecified; K44.9 Diaphragmatic hernia without obstruction or gangrene; G44.89 Other headache syndrome
CPT/HCPCS: 36415; 80053; 80061; 85025

== ENCOUNTER 2024-07-10 08:41 | Outpatient (AMB) | payer MEDICARE, SELFPAY ==
[2024-07-10 08:49] VITALS: BP 120/72; PULSE 54; O2SAT 98; BMI 28.9
--- NOTE | 2024-07-10 08:49 | A.OFFPC_ITS ---
Vital Signs 07/10/24 08:49 Height 5 ft 1 in Weight 153 lb 2 oz BMI 28.9 BP 120/72 Blood Pressure Location Rt brachial Position Sitting Pulse 54 Pulse Source Pulse Oximeter Pulse Oximetry (%) 98 Oxygen Delivery Method Room Air Intake Visit Reasons: 3 months f/up Allergies azithromycin [Zithromax Z-Jan] Allergy (Unknown, Verified 07/10/24 08:49) hives hydrochlorothiazide Allergy (Unknown, Verified 07/10/24 08:49) low K+ lisinopril Allergy (Unknown, Verified 07/10/24 08:49) cough Medication List - Last Reconciled 07/10/24 by Janelle Orozco MD amlodipine 10 mg PO DAILY 90 days atenolol 25 mg PO DAILY cetirizine 10 mg PO DAILY 90 days cholecalciferol (vitamin D3) (Vitamin D3) 25 mcg PO DAILY escitalopram oxalate 10 mg PO DAILY esomeprazole magnesium (Nexium) 40 mg PO DAILY famotidine 40 mg PO BEDTIME PRN losartan 100 mg PO DAILY lovastatin 20 mg PO DAILY 90 days meclizine 12.5 mg PO ONCE 30 days sennosides (Natural Senna Laxative) 8.6 mg PO BEDTIME simethicone 125 mg PO BID-QID PRN simethicone (Gas Relief (simethicone)) 80 mg PO TID-QID PRN sumatriptan succinate 50 mg PO ONCE PRN 90 days Tobacco use date assessed: 07/10/24 Fall risk assessment: No Falls in past year Last assessed Fall Risk: 07/10/24 Dental Screening Dental Screen Date: 07/10/24 Did you have a dental visit in the last 12 months?: Yes Did you have a dental problem in the last 6 months where you did not have access to dental care?: No Was dental information given to patient?: Patient has dentist HPI 3 months f/up HPI Details - The patient is a 69 year old female pr esenting for regular follow-up - Hypertension: Currently managed with A mlodipine 10 mg, Atenolol 25 mg, and Lo sartan 100 mg. Blood pressure well-controlled at present visit. - Dizziness: Managed with Meclizine as n eeded. Reports episodes of vertigo causing significant discomfort. Concern about vertigo being triggered by activities such as flying. - Itchy, burning skin: Investigated with dermatology consultation; no steroid therapy preferred. Possible external factor related to water quality suspected. - Edema: Experiences periodic swelling o f feet, particularly related to prolonged standing as part of job duties. Symptoms appear primarily in evenings and may be seasonal. - migraine headaches stable - anxiety stable Medications - Amlodipine 10 mg daily for hypertensio n - Atenolol 25 mg daily for hypertension - Losartan 100 mg daily for hypertension - Novastatin 20 mg daily for hyperlipide taras - Meclizine as needed for dizziness/vert igo - Sumatriptan 10 mg as needed for headac hes - Citalopram 10 mg daily, currently with no reported side effects Diagnostic results - Labs: Complete Blood Count (CBC) withi n normal limits; Comprehensive Metabolic Panel (CMP) with normal kidney function, liver enzymes. - Lipid Panel: LDL at 108 mg/dL, cholest roseline controlled. 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 And other medications - Use Meclizine as needed for dizziness; consider employing preventative dosing prior to activities known to trigger vertigo, such as flying. - Consider using a water filter for the shower to address skin irritation; review efficacy in improving symptoms. - Wear compression stockings or diabetic stockings to manage foot edema, especially after work. - Follow healthy lifestyle for cholester ol management. Review of Systems - Neurological: Reports dizziness associ ated with vertigo, denies current headaches. - Dermatologic: Reports itchy and burnin g sensation on the skin. 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 Mother HTN (hypertension) Brother No problems noted. Brother No problems noted. Sister No problems noted. Son No problems noted. Social History Housing: House Patient Tobacco Use Status: Former Tobacco user e-Cigarette/Vaping Use: Never Used Current occupational status: employed Cognitive needs: No Hearing needs: No Vision needs: Yes Questionnaire PHQ-9 Over the last 2 weeks, how often have you been bothered by any of the following problems? 1. Little interest or pleasure in doing things: not at all 2. Feeling down, depressed, or hopeless: not at all 3. Trouble falling or staying asleep, or sleeping too much: several days 4. Feeling tired or having little energy: several days 5. Poor appetite or overeating: not at all 6. Feeling bad about yourself - or that you are a failure or have let yourself or your family down: not at all 7. Trouble concentrating on things, such as reading the newspaper or watching television: not at all 8. Moving or speaking so slowly that other people could have noticed. Or the opposite - being so fidgety or restless that you have been moving around a lot more than usual: not at all 9. Thoughts that you would be better off or of hurting yourself in some way: not at all Total score: 2 Depression Screening Interpretation: Negative Depression Screening Done: Yes 60423 - PHQ-9 Billing: Yes Source: Developed by Drs. Saw Zavaleta, Karen Arellano, Ferny Gonzalez and colleagues, with an educational aisha from [employer]. Thrive Questionnaire Date Thrive assessed: 07/10/24 I am a: Patient What is your living situation today?: I have a steady place to live Within the past 12 months, did the food you bought not last and you didn't have the money to get more?: Never true Within the past 12 months, did you worry whether your food would run out before you got money to buy more?: Never true Do you have trouble paying for medicines?: No Do you have trouble getting transportation to medical appointments?: No Do you have trouble paying your heating and electricity bill?: No Do you have trouble taking care of your child, family member or friend?: No Do you have trouble with day-to-day activities such as bathing, preparing meals, shopping, managing finances, etc.?: No Are you currently unemployed and looking for a job?: No Are you interested in more education?: No Please select the resources that you would like help with: None Currently or been in a relationship where the following occur: No concerns reported THRIVE Score: 0 AUDIT C Alcohol Use Questionnaire (AUDIT-C) 1. How often do you have a drink containing alcohol?: Never 3. How often do you have six or more drinks on one occasion?: Never Total Score: 0 Score Reviewed/Action Taken: Yes ROOPA-7 AMB Questionnaire ROOPA-7 Date ROOPA - 7 assessed: 07/10/24 Feeling nervous, anxious, or on edge: 0 = Not at all Not being able to stop or control worryin = Not at all Worrying too much about different things: 0 = Not at all Trouble relaxin = Several days Being so restless that it is hard to sit still: 0 = Not at all Becoming easily annoyed or irritable: 0 = Not at all Feeling afraid as if something awful might happen: 0 = Not at all Total ROOPA-7 score (0-4 normal; 5-9 mild; 10-14 moderate; 15-21 severe): 1 Source: Developed by Drs. Saw Zavaleta, Karen Arellano, Ferny Gonzalez and colleagues, with an educational aisha from [employer]. ROOPA-7 Assessment Billing ROOPA-7 Assessment Tool: ROOPA-7 Assessment 48120 Physical exam (Primary Care) Vital Signs: Last Vital Signs Pulse 54 07/10/24 08:49 BP 120/72 07/10/24 08:49 Pulse Ox 98 07/10/24 08:49 Oxygen Delivery Method Room Air 07/10/24 08:49 BMI result Body Mass Index 28.9 Tobacco/Smoking Status: Tobacco use Status Tobacco use date assessed 07/10/24 07/10/24 08:51 Patient Tobacco Use Status Former Tobacco user 07/10/24 08:51 e-Cigarette/Vaping Use Never Used 07/10/24 08:51 PHQ-9: PHQ-9 Score PHQ-9: Total score 2 07/10/24 08:51 Depression Screening Interpretation: Negative Thrive Assessment: Date of Thrive Assessment Date Thrive assessed 07/10/24 07/10/24 08:51 Currently or been in a relationship where the following occur: No concerns reported Coding Level of Care Code Est Pt Level 4 (67670) Complex EM visit Add On G2211 Diagnoses Hypertension, essential I10 Lipid disorder E78.9 Recurrent major depressive disorder, in full remission F33.42 Active/Remission status: in full remission Chronic vertigo R42 Hiatal hernia K44.9 Headache syndrome G44.89 Difficulty sleeping G47.9 Anxiety, generalized F41.1 Environmental allergies Z91.09 Vitamin D deficiency E55.9 Additional Codes ROOPA-7 Assessment Billing - ROOPA-7 Assessment Tool: ROOPA-7 Assessment 96195 ([id number]) PHQ-9 - 56137 - PHQ-9 Billing: Yes ([id number]) Assessment & Plan Assessment & Plan (1) Hypertension, essential: Code(s): I10 - Essential (primary) hypertension Category: Medical (2) Lipid disorder: Code(s): E78.9 - Disorder of lipoprotein metabolism, unspecified Category: Medical (3) Depression, major, recurrent: Code(s): F33.9 - Major depressive disorder, recurrent, unspecified Category: Medical Qualifiers: Active/Remission status: in full remission Qualified Code(s): F33.42 - Major depressive disorder, recurrent, in full remission (4) Chronic vertigo: Code(s): R42 - Dizziness and giddiness Category: Medical (5) Hiatal hernia: Code(s): K44.9 - Diaphragmatic hernia without obstruction or gangrene Category: Medical (6) Headache syndrome: Code(s): G44.89 - Other headache syndrome Category: Medical (7) Difficulty sleeping: Code(s): G47.9 - Sleep disorder, unspecified Category: Medical (8) Anxiety, generalized: Code(s): F41.1 - Generalized anxiety disorder Category: Medical (9) Environmental allergies: Code(s): Z91.09 - Other allergy status, other than to drugs and biological substances Category: Medical (10) Vitamin D deficiency: Code(s): E55.9 - Vitamin D deficiency, unspecified Category: Medical Plan - The patient is a 69 year old female presenting for regular follow-up - Hypertension: Currently managed with Amlodipine 10 mg, Atenolol 25 mg, and Losartan 100 mg. Blood pressure well-controlled at present visit. - Dizziness: Managed with Meclizine as needed. Reports episodes of vertigo causing significant discomfort. Concern about vertigo being triggered by activities such as flying. - Itchy, burning skin: Investigated with dermatology consultation; no steroid therapy preferred. Possible external factor related to water quality suspected. - Edema: Experiences periodic swelling of feet, particularly related to prolonged standing as part of job duties. Symptoms appear primarily in evenings and may be seasonal. - migraine headaches stable - anxiety stable Medications - Amlodipine 10 mg daily for hypertension - Atenolol 25 mg daily for hypertension - Losartan 100 mg daily for hypertension - Novastatin 20 mg daily for hyperlipidemia - Meclizine as needed for dizziness/vertigo - Sumatriptan 10 mg as needed for headaches - Citalopram 10 mg daily, currently with no reported side effects Diagnostic results - Labs: Complete Blood Count (CBC) within normal limits; Comprehensive Metabolic Panel (CMP) with normal kidney function, liver enzymes. - Lipid Panel: LDL at 108 mg/dL, cholesterol controlled. 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 And other medications - Use Meclizine as needed for dizziness; consider employing preventative dosing prior to activities known to trigger vertigo, such as flying. - Consider using a water filter for the shower to address skin irritation; review efficacy in improving symptoms. - Wear compression stockings or diabetic stockings to manage foot edema, especia lly after work. - Follow healthy lifestyle for cholesterol management. Orders: Orders Complete Blood Count Auto Diff 3 Months F33.42 - Major depressive disorder, recurrent, in full remission, F41.1 - Generalized anxiety disorder, G44.89 - Other headache syndrome, G47.9 - Sleep disorder, unspecified, I10 - Essential (primary) hypertension Comprehensive Met. Panel 3 Months F33.42 - Major depressive disorder, recurrent, in full remission, F41.1 - Generalized anxiety disorder, G44.89 - Other headache syndrome, G47.9 - Sleep disorder, unspecified, I10 - Essential (primary) hypertension Medications: Changed From meclizine 12.5 mg PO ONCE 30 days 30 tabs 0RF To meclizine 12.5 mg PO ONCE 90 days 90 tabs 0RF
== END 2024-07-10 09:14 | disposition home or self-care (01) ==
PROVIDERS: PCP Internal Medicine; Visit Provider Internal Medicine
DX: I10 Essential (primary) hypertension (principal); E78.9 Disorder of lipoprotein metabolism, unspecified; F33.42 Major depressive disorder, recurrent, in full remission; R42 Dizziness and giddiness; K44.9 Diaphragmatic hernia without obstruction or gangrene; G44.89 Other headache syndrome; G47.9 Sleep disorder, unspecified; F41.1 Generalized anxiety disorder; Z91.09 Other allergy status, other than to drugs and biological substances; E55.9 Vitamin D deficiency, unspecified

== ENCOUNTER → 2024-07-10 08:41 | Outpatient (BNVA) | payer MEDICARE, SELFPAY | PROVIDERS: PCP Internal Medicine; Visit Provider Internal Medicine | DX: I10 Essential (primary) hypertension (principal); F33.42 Major depressive disorder, recurrent, in full remission; R42 Dizziness and giddiness; K44.9 Diaphragmatic hernia without obstruction or gangrene; G44.89 Other headache syndrome; G47.9 Sleep disorder, unspecified; F41.1 Generalized anxiety disorder; E55.9 Vitamin D deficiency, unspecified; Z91.09 Other allergy status, other than to drugs and biological substances | CPT/HCPCS: 96127; 99212 ==

== ENCOUNTER 2024-10-02 08:35 | Outpatient (AMB) | payer MEDICARE, SELFPAY ==
--- NOTE | 2024-10-02 08:37 | MHC.OFFVIS ---
Vital Signs 10/02/24 08:38 Height 5 ft 1 in Weight 151 lb BMI 28.5 BP 120/68 Blood Pressure Location Rt brachial Position Sitting Pulse 52 Pulse Source Pulse Oximeter Pulse Oximetry (%) 96 Oxygen Delivery Method Room Air Intake Visit Reasons: 6 mnth f/u Intake Note: ESTABLISHED PATIENT for GERD + IBS mgmt. Chief Complaint; Pt denies any GI sx or concerns at this time. Sql Database Administrator Required: No Accompanied by: Self / Same As Patient Allergies azithromycin [Zithromax Z-Jan] Allergy (Unknown, Verified 10/02/24 08:58) hives hydrochlorothiazide Allergy (Unknown, Verified 10/02/24 08:58) low K+ lisinopril Allergy (Unknown, Verified 10/02/24 08:58) cough HPI HPI 6 mnth f/u: Details: LAST VISIT Diarrhea Hiatal hernia GERD (gastroesophageal reflux disease) Constipation Postprandial abdominal bloating Plan Patient will continue Nexium in the morning. Avoid dietary triggers and late night snacking. Staying upright for minimum 3 hours discussed with patient. Patient will take famotidine on as needed basis. Discussed with patient low FODMAP diet. List of food recommended as well as list of food to avoid given to patient. Patient will take fiber supplement, will try to get probiotic and take it daily. Increase fluid intake and activity to promote better bowel motility. May take senna on as-needed basis. Patient is agreeable to this plan and verbalizes understanding of instructions. She was given the opportunity to ask questions and all questions answered. ? Thank you for allowing me to participate in her care Medications New simethicone (Gas Relief (simethicone)) 80 mg PO TID-QID PRN 120 tabs 4RF abdominal distention Refilled esomeprazole magnesium (Nexium) 40 mg PO DAILY 90 caps 2RF K21.9 TODAY'S VISIT Patient is here today for follow-up. Patient reports that she has been doing fairly well since last visit. She continues to work part-time at [employer] in [place]. Patient takes Nexium every day and her symptoms are suppressed. Patient reports that she uses senna as needed if no bowel movement in 1 or 2 days. Patient has not had to use it that much. She admits that she gained few lb over the winter, however she is planning on doing lots of gardening and staying busy when the spring comes. Patient denies melena, hematochezia, unintentional weight loss or ribbon like stools. Denies any dyspepsia, dysphagia or odynophagia. Patient reports to be feeling fairly well. Reports eating well balanced diet for the most part. Patient is very stressed out as she has to serve in [employer] in the next few weeks. This stress test are all as she does not know if she can afford to do this for a long period of time. [facility] Medical History Seymour esophagus Chronic nasal congestion Lipid disorder Vitamin D deficiency Back pain, chronic Environmental allergies Depression, major, recurrent Hypertension, essential Chronic vertigo Surgical History Hx of colonoscopy History of esophagogastroduodenoscopy (EGD) Endometrial cyst of ovary History of tonsillectomy History of removal of skin mole Family History Father No problems noted. Mother HTN (hypertension) Brother No problems noted. Brother No problems noted. Sister No problems noted. Son No problems noted. Social History Housing: House Patient Tobacco Use Status: Former Tobacco user e-Cigarette/Vaping Use: Never Used Current occupational status: employed Cognitive needs: No Hearing needs: No Vision needs: Yes Review of Systems Const Denies weight gain and Denies weight loss ENT Reports no additional complaints, Denies dysphagia and Denies odynophagia Card Reports no additional complaints Resp Reports no additional complaints GI Denies abdominal pain, Denies belching, Denies melena, Denies bloating, Denies change in bowel habits, Denies dysphagia, Denies excessive flatus, Denies dyspepsia, Denies heartburn, Denies diarrhea, Denies loose stools, Denies nausea, Denies odynophagia and Denies vomiting Musc Reports no additional complaints Neuro Reports no additional complaints Psych Reports no additional complaints Endo Reports no additional complaints Physical Exam Vital Signs: Last Vital Signs Pulse 52 10/02/24 08:38 BP 120/68 10/02/24 08:38 Pulse Ox 96 10/02/24 08:38 Oxygen Delivery Method Room Air 10/02/24 08:38 BMI result Body Mass Index 28.5 Const General: healthy appearing, no acute distress and well developed Nutritional Appearance: well nourished Orientation/consciousness: patient oriented x3 Resp Effort & Inspection: normal respiratory effort, able to speak in complete sentences, no tracheal deviation and symmetric chest movement Auscultation: clear to auscultation bilaterally Cardio Rate: regular rate GI Inspection: Yes normal to inspection and No distended Palpation (GI): Soft to palpation, not firm, nontender and No hepatosplenomegaly present Auscultation: normal bowel sounds General: Yes no CVA tenderness Back/Spine/Pelvis Back: no CVA tenderness Skin General skin exam: elasticity normal, turgor normal and dry skin Neuro General: patient oriented x3 Psych Appearance: grossly normal Mental Status: mental status grossly normal Assessment & Plan Assessment & Plan (1) Diarrhea: Code(s): R19.7 - Diarrhea, unspecified Category: Medical Qualifiers: Diarrhea type: functional diarrhea Qualified Code(s): K59.1 - Functional diarrhea (2) Hiatal hernia: Code(s): K44.9 - Diaphragmatic hernia without obstruction or gangrene Category: Medical (3) GERD (gastroesophageal reflux disease): Code(s): K21.9 - Gastro-esophageal reflux disease without esophagitis Qualifiers: Esophagitis presence: esophagitis presence not specified Qualified Code(s): K21.9 - Gastro-esophageal reflux disease without esophagitis (4) Constipation: Code(s): K59.00 - Constipation, unspecified Qualifiers: Constipation type: slow transit constipation Qualified Code(s): K59.01 - Slow transit constipation (5) Postprandial abdominal bloating: Code(s): R14.0 - Abdominal distension (gaseous) Plan Continue Nexium daily. Avoid dietary triggers and late night snacking. Staying upright for minimal 3 hours after meals discussed with patient. Continue senna as needed. Increase fluid intake and activity to promote better bowel motility. Patient to follow-up in 6 months, sooner on as needed basis. She is agreeable to this plan and verbalizes understanding of instructions. She was given the opportunity to ask questions and all questions answered. Thank you for allowing me to participate in her care Coding Level of Care Code Est Pt Level 3 (17134) Diagnoses Functional diarrhea K59.1 Diarrhea type: functional diarrhea Hiatal hernia K44.9 Gastroesophageal reflux disease, unspecified whether esophagitis present K21.9 Esophagitis presence: esophagitis presence not specified Slow transit constipation K59.01 Constipation type: slow transit constipation Postprandial abdominal bloating R14.0 Time Spent (min) 25 Comment 15 minutes spent with patient and additional 10 minutes spent reviewing her records
[2024-10-02 08:38] VITALS: BP 120/68; PULSE 52; O2SAT 96; BMI 28.5
== END 2024-10-02 09:17 | disposition home or self-care (01) ==
PROVIDERS: PCP Internal Medicine; Visit Provider Nurse Practitioner Family
DX: K59.1 Functional diarrhea (principal); K44.9 Diaphragmatic hernia without obstruction or gangrene; K21.9 Gastro-esophageal reflux disease without esophagitis; K59.01 Slow transit constipation; R14.0 Abdominal distension (gaseous)
CPT/HCPCS: 99213

== ENCOUNTER → 2024-10-02 08:35 | Outpatient (BNVA) | payer MEDICARE, SELFPAY | PROVIDERS: PCP Internal Medicine; Visit Provider Nurse Practitioner Family | DX: K59.1 Functional diarrhea (principal); K21.9 Gastro-esophageal reflux disease without esophagitis; K58.1 Irritable bowel syndrome with constipation; K44.9 Diaphragmatic hernia without obstruction or gangrene; K59.01 Slow transit constipation; R14.0 Abdominal distension (gaseous) | CPT/HCPCS: 99212 ==

== ENCOUNTER → 2024-10-22 11:15 | Outpatient (RCR) | payer MEDICARE, SELFPAY ==
[2020-04-22 13:54] VITALS: BP 140/70; PULSE 76; O2SAT 95
== END | disposition home or self-care (01) ==
LOC: HO.PTCHIC 04-22 13:43
PROVIDERS: PCP Internal Medicine; Visit Provider Internal Medicine
DX: R42 Dizziness and giddiness (principal)
CPT/HCPCS: 95992; 97161; 97535

== ENCOUNTER 2025-02-03 08:53 | Outpatient (AMB) | payer MEDICARE, SELFPAY ==
[2025-02-03 08:59] VITALS: BP 132/80; PULSE 59; O2SAT 97; BMI 28.3
--- NOTE | 2025-02-03 08:59 | A.OFFPC_ITS ---
Vital Signs 02/03/25 08:59 Height 5 ft 1 in Weight 150 lb BMI 28.3 BP 132/80 Blood Pressure Location Lt brachial Position Sitting Pulse 59 Pulse Source Pulse Oximeter Pulse Oximetry (%) 97 Intake Visit Reasons: follow up re : medication Allergies azithromycin (Zithromax Z-Jan) Allergy (Unknown, Verified 02/03/25 09:00) hives hydrochlorothiazide Allergy (Unknown, Verified 02/03/25 09:00) low K+ lisinopril Allergy (Unknown, Verified 02/03/25 09:00) cough Medication List - Last Reconciled 02/03/25 by Janelle Orozco MD amlodipine 10 mg PO DAILY 30 days atenolol 25 mg PO DAILY cetirizine 10 mg PO DAILY 90 days cholecalciferol (vitamin D3) (Vitamin D3) 25 mcg PO DAILY escitalopram oxalate 10 mg PO DAILY esomeprazole magnesium (Nexium) 40 mg PO DAILY famotidine 40 mg PO BEDTIME PRN losartan 100 mg PO DAILY lovastatin 20 mg PO DAILY 90 days meclizine 12.5 mg PO ONCE 90 days sennosides (senna) 8.6 mg PO BEDTIME simethicone (Gas Relief (simethicone)) 80 mg PO TID-QID PRN sumatriptan succinate 50 mg PO ONCE PRN 90 days Tobacco use date assessed: 07/10/24 Fall risk assessment: No Falls in past year Last assessed Fall Risk: 02/03/25 Dental Screening Dental Screen Date: 07/10/24 HPI follow up re : medication HPI Details Chief Complaint Ongoing care appointment, last time seen was June of this year patient unable to came after that due to jury duty History The patient is a 70-year-old female presenting with hypertension management issues and urinary frequency. Hypertension: - Blood pressure recorded at 132/80 mmHg . - Current medications include amlodipine 10 mg, losartan 100 mg, and atenolol 25 mg. - The patient has been monitoring blood pressure at home. Urinary frequency: - Reports nocturnal urination every two to two and a half hours. - Increased frequency perceived over yea rs, notably at night. - History of waking up to urinate and be ing prematurely awakened by pet. - Increased fluid intake, particularly w ater and occasional Coke Zero, noted by the patient. 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 - Nocturia attributed to excessive eveni ng fluid intake and longstanding bladder concerns. 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 - Dietary habits: Drinks water and three glasses of Coke Zero per day. - Lifestyle: No smoking, occasional soci al drinking. - Reports high activity level due to wor k demands. Problem List - Hypertension - Anxiety and Depression - Nocturia - Allergies - Hyperlipidemia - Gastroesophageal reflux disease - Peripheral edema Diagnostic results - Labs: June blood test showed normal CBC and metabolic profile. - Further blood tests and urinalysis wer e ordered. Assessment and Plan 1. Hypertension - Blood pressure recorded at a moderatel y controlled level. - Continue current antihypertensive julián men but monitor for potential adjustments. - Encourage regular blood pressure monit oring and adherence to prescribed medications. 2. Nocturia - Advised to limit fluid intake, particu larly in the evening. - Discussed potential lifestyle changes to mitigate urinary frequency. - Noted intention to follow up with a gy necologist. - Considered non-pharmacological strateg ies before medication changes. 3. Anxiety and Depression - Maintained current dose and advised mo nitoring symptoms. - Considered adjustment based on the per sistence of symptoms. 4. Peripheral Edema - Discussed wearing compression stocking s to aid in reducing leg swelling. - Evaluated the potential need for [facility] vascular investigation. - Ordered an ultrasound if necessary fol lowing initial measures. Patient Instructions - Maintain current antihypertensive medi cations as prescribed. - Monitor blood pressure regularly. - Restrict evening fluid intake and avoi d sodas. - Consider wearing compression stockings to address leg swelling. - Follow up with a offset press operator for blad homer evaluation. - Schedule lab tests as instructed. - Return in about four months or sooner if symptoms change. Review of Systems General: No fever no chills neurological: No headaches no dizziness ear nose throat: No sore throat no hearing difficulty no ear pain cardiovascular: No syncope, no chest pain, no palpitations gastrointestinal: No nausea vomiting or diarrhea endocrine: No polyuria polydipsia no heat intolerance genitourinary: No dysuria skin: No new complaints Physical Exam general: No acute distress HEENT: No acute findings neck: Supple respiratory system: Able to talk in full sentences, no audible wheeze no stridor cardiovascular: S1-S2 RRR gastrointestinal: No pain extremities: Slight puffiness in feet color is pink temperature warm ENGINEERING ILLUSTRATOR: Alert awake oriented x3 motor sensory intact skin: Normal turgor PFSH Medical History Esymour esophagus Chronic nasal congestion Lipid disorder Vitamin D deficiency Back pain, chronic Environmental allergies Depression, major, recurrent Hypertension, essential Chronic vertigo Surgical History Hx of colonoscopy History of esophagogastroduodenoscopy (EGD) Endometrial cyst of ovary History of tonsillectomy History of removal of skin mole Family History Father No problems noted. Mother HTN (hypertension) Brother No problems noted. Brother No problems noted. Sister No problems noted. Son No problems noted. Social History Housing: House Patient Tobacco Use Status: Former Tobacco user e-Cigarette/Vaping Use: Never Used Current occupational status: employed Cognitive needs: No Hearing needs: No Vision needs: Yes Questionnaire Thrive Questionnaire Date Thrive assessed: 07/10/24 I am a: Patient What is your living situation today?: I have a steady place to live Within the past 12 months, did the food you bought not last and you didn't have the money to get more?: Never true Within the past 12 months, did you worry whether your food would run out before you got money to buy more?: Never true Do you have trouble paying for medicines?: No Do you have trouble getting transportation to medical appointments?: No Do you have trouble paying your heating and electricity bill?: No Do you have trouble taking care of your child, family member or friend?: No Do you have trouble with day-to-day activities such as bathing, preparing meals, shopping, managing finances, etc.?: No Are you currently unemployed and looking for a job?: No Are you interested in more education?: No Please select the resources that you would like help with: None Currently or been in a relationship where the following occur: No concerns reported THRIVE Score: 0 AUDIT C Alcohol Use Questionnaire (AUDIT-C) 1. How often do you have a drink containing alcohol?: Never 3. How often do you have six or more drinks on one occasion?: Never Total Score: 0 Score Reviewed/Action Taken: Yes ROOPA-7 AMB Questionnaire ROOPA-7 Date ROOPA - 7 assessed: 07/10/24 Source: Developed by Drs. Saw Zavaleta, Karen Arellano, Ferny Gonzalez and colleagues, with an educational aisha from [employer]. Physical exam (Primary Care) Vital Signs: Last Vital Signs Pulse 59 02/03/25 08:59 BP 132/80 02/03/25 08:59 Pulse Ox 97 02/03/25 08:59 BMI result Body Mass Index 28.3 Tobacco/Smoking Status: Tobacco use Status Tobacco use date assessed 07/10/24 02/03/25 09:04 Patient Tobacco Use Status Former Tobacco user 02/03/25 09:04 e-Cigarette/Vaping Use Never Used 02/03/25 09:04 Thrive Assessment: Date of Thrive Assessment Date Thrive assessed 07/10/24 02/03/25 09:04 Currently or been in a relationship where the following occur: No concerns reported Coding Level of Care Code Est Pt Level 4 (75174) Complex EM visit Add On G2211 Diagnoses Hypertension, essential I10 Lipid disorder E78.9 Recurrent major depressive disorder, in full remission F33.42 Active/Remission status: in full remission Chronic vertigo R42 Hiatal hernia K44.9 Headache syndrome G44.89 Difficulty sleeping G47.9 Anxiety, generalized F41.1 Environmental allergies Z91.09 Vitamin D deficiency E55.9 Edema of lower extremity due to peripheral venous insufficiency I87.2 Assessment & Plan Assessment & Plan (1) Hypertension, essential: Code(s): I10 - Essential (primary) hypertension Category: Medical (2) Lipid disorder: Code(s): E78.9 - Disorder of lipoprotein metabolism, unspecified Category: Medical (3) Depression, major, recurrent: Code(s): F33.9 - Major depressive disorder, recurrent, unspecified Category: Medical Qualifiers: Active/Remission status: in full remission Qualified Code(s): F33.42 - Major depressive disorder, recurrent, in full remission (4) Chronic vertigo: Code(s): R42 - Dizziness and giddiness Category: Medical (5) Hiatal hernia: Code(s): K44.9 - Diaphragmatic hernia without obstruction or gangrene Category: Medical (6) Headache syndrome: Code(s): G44.89 - Other headache syndrome Category: Medical (7) Difficulty sleeping: Code(s): G47.9 - Sleep disorder, unspecified Category: Medical (8) Anxiety, generalized: Code(s): F41.1 - Generalized anxiety disorder Category: Medical (9) Environmental allergies: Code(s): Z91.09 - Other allergy status, other than to drugs and biological substances Category: Medical (10) Vitamin D deficiency: Code(s): E55.9 - Vitamin D deficiency, unspecified Category: Medical (11) Edema of lower extremity due to peripheral venous insufficiency: Code(s): I87.2 - Venous insufficiency (chronic) (peripheral) Category: Medical Plan Chief Complaint Ongoing care appointment, last time seen was June of this year patient unable to came after that due to jury duty History The patient is a 70-year-old female presenting with hypertension management issues and urinary frequency. Hypertension: - Blood pressure recorded at 132/80 mmHg. - Current medications include amlodipine 10 mg, losartan 100 mg, and atenolol 25 mg. - The patient has been monitoring blood pressure at home. Urinary frequency: - Reports nocturnal urination every two to two and a half hours. - Increased frequency perceived over years, notably at night. - History of waking up to urinate and being prematurely awakened by pet. - Increased fluid intake, particularly water and occasional Coke Zero, noted by the patient. - Bladder issue awareness; plans to consult offset press operator. - Nocturia attributed to excessive evening fluid intake and longstanding bladder concerns. 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 - Dietary habits: Drinks water and three glasses of Coke Zero per day. - Lifestyle: No smoking, occasional social drinking. - Reports high activity level due to work demands. Problem List - Hypertension - Anxiety and Depression - Nocturia - Allergies - Hyperlipidemia - Gastroesophageal reflux disease - Peripheral edema Diagnostic results - Labs: June blood test showed normal CBC and metabolic profile. - Further blood tests and urinalysis were ordered. Assessment and Plan 1. Hypertension - Blood pressure recorded at a moderately controlled level. - Continue current antihypertensive regimen but monitor for potential adjustments. - Encourage regular blood pressure monitoring and adherence to prescribed medications. 2. Nocturia - Advised to limit fluid intake, particularly in the evening. - Discussed potential lifestyle changes to mitigate urinary frequency. - Noted intention to follow up with a offset press operator. - Considered non-pharmacological strategies before medication changes. 3. Anxiety and Depression - Maintained current dose and advised monitoring symptoms. - Considered adjustment based on the persistence of symptoms. 4. Peripheral Edema - Discussed wearing compression stockings to aid in reducing leg swelling. - Evaluated the potential need for further vascular investigation. - Ordered an ultrasound if necessary following initial measures. Patient Instructions - Maintain current antihypertensive medications as prescribed. - Monitor blood pressure regularly. - Restrict evening fluid intake and avoid sodas. - Consider wearing compression stockings to address leg swelling. - Follow up with a offset press operator for bladder evaluation. - Schedule lab tests as instructed. - Return in about four months or sooner if symptoms change. Orders: Orders US venous duplex LE BI Today I87.2 - Venous insufficiency (chronic) (peripheral) Medications: Changed From amlodipine 10 mg PO DAILY 30 days 30 tabs 0RF To amlodipine 10 mg PO DAILY 90 tabs 0RF 90 days Refilled atenolol 25 mg PO DAILY 90 tabs 0RF hypertension escitalopram oxalate 10 mg PO DAILY 90 tabs 0RF
== END 2025-02-03 09:19 | disposition home or self-care (01) ==
PROVIDERS: PCP Internal Medicine; Visit Provider Internal Medicine
DX: I10 Essential (primary) hypertension (principal); E78.9 Disorder of lipoprotein metabolism, unspecified; F33.42 Major depressive disorder, recurrent, in full remission; R42 Dizziness and giddiness; K44.9 Diaphragmatic hernia without obstruction or gangrene; G44.89 Other headache syndrome; G47.9 Sleep disorder, unspecified; F41.1 Generalized anxiety disorder; Z91.09 Other allergy status, other than to drugs and biological substances; E55.9 Vitamin D deficiency, unspecified; I87.2 Venous insufficiency (chronic) (peripheral)

== ENCOUNTER 2025-02-03 08:53 | Outpatient (REF) | payer MEDICARE, SELFPAY ==
[2025-02-03 10:29] LABS: MANUAL DIFF FLAG NO
[2025-02-03 10:41] LABS: Hematocrit 41.7 % (37.0-47.0); Hemoglobin 14.0 g/dl (12.0-16.0); Imm Gran Abs Auto 0.02 X10*3/uL (0.00-0.03); Imm Gran Pct Auto 0.4 % (0.0-0.4); Lymphocytes Absolute Auto 2.0 X10*3/uL (1.2-4.9); Mean Corpuscular HGB Conc 33.6 g/dl (31.0-35.0); Mean Corpuscular Hemoglobin 29.9 pg (27.0-33.0); Mean Corpuscular Volume 89.1 fL (80.0-98.0); NRBC Abs Auto 0.000 X10*3/uL (0.0-0.012); NRBC Pct Auto 0.0 /100WBC (0.0-0.2); Platelet Count 276 X10*3/uL (160-400); Red Blood Count 4.68 X10*6/uL (4.20-5.50); White Blood Count 5.4 X10*3/uL (4.8-10.8)
[2025-02-03 11:35] LABS: Alanine Aminotransferase 16 U/L (0-31); Albumin Level 4.4 g/dL (3.5-5.0); Alkaline Phosphatase 83 U/L (39-117); Anion Gap 13 (12-20); Aspartate Amino Transferase 26 U/L (5-31); Blood Urea Nitrogen 12 mg/dL (9-16); Calcium 9.6 mg/dL (8.4-10.2); Carbon Dioxide 24 mmol/L (22-29); Chloride 105 mmol/L (96-108); Estimated Glomerular Filt Rate > 60; Potassium 4.0 mmol/L (3.3-5.1); Sodium 138 mmol/L (135-145); Total Protein 7.0 g/dL (6.5-8.0)
== END 2025-02-03 08:54 | disposition home or self-care (01) ==
LOC: HO.HMGCLDS 08:53
PROVIDERS: PCP Internal Medicine; Visit Provider Internal Medicine
DX: I10 Essential (primary) hypertension (principal); E78.9 Disorder of lipoprotein metabolism, unspecified; F33.42 Major depressive disorder, recurrent, in full remission; R42 Dizziness and giddiness; K44.9 Diaphragmatic hernia without obstruction or gangrene; G44.89 Other headache syndrome; G47.9 Sleep disorder, unspecified; F41.1 Generalized anxiety disorder; E55.9 Vitamin D deficiency, unspecified; I87.2 Venous insufficiency (chronic) (peripheral); Z91.09 Other allergy status, other than to drugs and biological substances
CPT/HCPCS: 36415; 80053; 85025; 99212

== ENCOUNTER 2025-03-16 13:02 | Outpatient (REF) | payer MEDICARE, SELFPAY ==
--- NOTE | ~2025-03-16 | US_ITS ---
EXAMINATION: US LOWER EXTREMITY VENOUS (REFLUX EXAM), BILATERAL CLINICAL INFORMATION: Venous insufficiency. COMPARISON: None. TECHNIQUE: Color flow triplex imaging and compression Doppler was performed to evaluate both the deep and the superficial systems bilaterally. To evaluate the superficial system, the examination was performed in the upright position. Color-flow Doppler ultrasound and compression ultrasound were utilized. In addition, maneuvers were utilized to demonstrate reflux. FINDINGS: 1. DEEP VENOUS ULTRASOUND OF THE RIGHT LOWER EXTREMITY: Common Femoral Vein: Compressible, normal respiratory variation and augmented flow. Femoral Vein: Compressible, normal color flow and augmentation. Popliteal Vein: Compressible, normal augmentation. Deep Reflux: There is no evidence of reflux in the deep system in either the common femoral vein, superficial femoral or the popliteal vein. There is no evidence of a Hodgson's cyst. 2. SUPERFICIAL ULTRASOUND WITH DOPPLER OF RIGHT LOWER EXTREMITY: GREAT SAPHENOUS VEIN: Saphenofemoral Junction: 0.6 cm; Reflux: 2124 ms Proximal Thigh: 0.4 cm; Reflux: 2752 ms Mid Thigh: 0.5 cm; Reflux: 2692 ms Distal Thigh: 0.4 cm; Reflux: 2412 ms At Knee: 0.5 cm; Reflux: 2732 ms Proximal Calf: 0.3 cm; Reflux: 2824 ms Mid Calf: 0.2 cm; Reflux: 1644 ms Distal Calf: 0.2 cm; Reflux: 2524 ms DUPLICATED MEDIAL GREAT SAPHENOUS VEIN: Diameter: None imaged Reflux: NA DUPLICATED LATERAL GREAT SAPHENOUS VEIN: Diameter: 0.3 cm. Reflux: NA SMALL SAPHENOUS VEIN: Saphenopopliteal Junction: 0.2 cm; Reflux: 0 ms Proximal: 0.2 cm; Reflux: 0 ms Distal: 0.3 cm; Reflux: 0 ms VEIN OF GIACOMINI: Size: 0.3 cm Reflux: NA PERFORATORS: Location: Small saphenous vein, mid segment. Mid calf. Size: 0.2-0.3 cm. Reflux: NA VARICOSITIES: Location: Small saphenous vein, proximal and mid segment. Mid thigh, at the knee, proximal and distal calf. Size: 0.3-0.4 cm. Reflux: 2900 08 ms at the mid thigh. 2848 ms at the knee. 2684 ms and 2704 ms in the proximal calf. 3. DEEP VENOUS ULTRASOUND OF THE LEFT LOWER EXTREMITY: Common Femoral Vein: Compressible, normal respiratory variation and augmented flow. Femoral Vein: Compressible, normal color flow and augmentation. Popliteal Vein: Compressible, normal augmentation. Deep Reflux: There is no evidence of reflux in the deep system in either the common femoral vein, superficial femoral or the popliteal vein. There is no evidence of a Hodgson's cyst. 4. SUPERFICIAL ULTRASOUND WITH DOPPLER OF LEFT LOWER EXTREMITY: GREAT SAPHENOUS VEIN: Saphenofemoral Junction: 0.5 cm; Reflux: 0 ms Proximal Thigh: 0.5 cm; Reflux: 0 ms Mid Thigh: 0.4 cm; Reflux: 2684 ms Distal Thigh: 0.5 cm; Reflux: 0 ms At Knee: 0.4 cm; Reflux: 0 ms Proximal Calf: 0.2 cm; Reflux: 1280 ms Mid Calf: 0.2 cm; Reflux: 0 ms Distal Calf: 0.3 cm; Reflux: 0 ms DUPLICATED MEDIAL GREAT SAPHENOUS VEIN: Diameter: None imaged Reflux: NA DUPLICATED LATERAL GREAT SAPHENOUS VEIN: Diameter: 0.2 cm. Reflux: NA SMALL SAPHENOUS VEIN: Saphenopopliteal Junction: 0.2 cm; Reflux: 0 ms Proximal: 0.3 cm; Reflux: 0 ms Distal: 0.3 cm; Reflux: 0 ms VEIN OF GIACOMINI: Size: 0.3 cm. Reflux: NA PERFORATORS: Location: Small saphenous vein, proximal and mid segments. Mid thigh. Mid and distal calf. Size: 0.1-0.3 cm. Reflux: NA VARICOSITIES: Location: Small saphenous vein, proximal segment. Mid thigh. At the knee. Proximal calf. Size: 0.3-0.4 cm. Reflux: 2868 ms in the proximal segment small saphenous vein. 1520 ms at the knee. 1640 ms in the proximal calf. US/US venous duplex LE BI IMPRESSION: Right: Venous insufficiency, great saphenous vein from the junction to the ankle. 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 Perforators without reflux. Left: Venous insufficiency, great saphenous vein at the mid thigh and below the knee. Varices with reflux in the proximal segment, small saphenous vein, at the knee and proximal calf. Perforators without reflux. Electronically signed by: Joseph Poole MD 03/16/2025 02:54 PM EDT
== END 2025-03-16 13:03 | disposition home or self-care (01) ==
LOC: HO.US 13:02
PROVIDERS: PCP Internal Medicine; Visit Provider Internal Medicine
DX: I87.2 Venous insufficiency (chronic) (peripheral) (principal)
CPT/HCPCS: 93970

== ENCOUNTER → 2025-03-16 13:03 | Outpatient (BNV) | payer MEDICARE, SELFPAY | PROVIDERS: PCP Internal Medicine; Visit Provider Radiology Diagnostic Radiology | DX: I83.893 Varicose veins of bilateral lower extremities with other complications (principal) | CPT/HCPCS: 93970 ==

== ENCOUNTER 2025-05-10 12:10 | Outpatient (REF) | payer MEDICARE, SELFPAY ==
--- NOTE | ~2025-05-10 | MM_ITS ---
EXAMINATION: MM SCREENING DIGITAL BREAST TOMOSYNTHESIS, BILATERAL CLINICAL INFORMATION: Screening. Asymptomatic. COMPARISON: Comparison made to multiple prior, most recent May 04, 2024, and most remote January 23, 2017. TECHNIQUE: Digital breast tomosynthesis is performed in mediolateral oblique and craniocaudal views along with computer-aided detection (CAD). Synthesized 2D images are generated from the tomosynthesis. FINDINGS: BREAST COMPOSITION: There are scattered areas of fibroglandular density. BILATERAL BREASTS: No significant masses, suspicious calcifications or other abnormalities are seen in either breast. MM/MM tomosynthesis screening BI IMPRESSION: BILATERAL BREASTS: Negative, no mammographic evidence of malignancy. Normal interval follow-up is recommended in 12 months. ASSESSMENT: BI-RADS: Category 1: Negative RECOMMENDATION: Routine annual mammography screening. FOLLOW-UP: 1 year F/U This examination should not preclude the clinical evaluation of a suspicious palpable abnormality. This patient's information was entered into a reminder system with a target due date for their next mammogram. Electronically signed by: Flora Rome MD 05/12/2025 04:17 PM [facility] [place]
== END 2025-05-10 12:11 | disposition home or self-care (01) ==
LOC: HO.MAMMO 12:10
PROVIDERS: PCP Internal Medicine; Visit Provider Internal Medicine
DX: Z12.31 Encounter for screening mammogram for malignant neoplasm of breast (principal)
CPT/HCPCS: 77063; 77067

== ENCOUNTER → 2025-05-10 12:30 | Outpatient (BNV) | payer MEDICARE, SELFPAY | PROVIDERS: PCP Internal Medicine; Visit Provider Radiology Body Imaging | DX: Z12.31 Encounter for screening mammogram for malignant neoplasm of breast (principal) | CPT/HCPCS: 77063; 77067 ==

== ENCOUNTER 2025-06-04 10:10 | Outpatient (AMB) | payer MEDICARE, SELFPAY ==
--- NOTE | 2025-06-04 10:16 | MHC.OFFVIS ---
Vital Signs 06/04/25 10:17 Height 5 ft 1 in Weight 148 lb BMI 28.0 BP 104/58 L Blood Pressure Location Lt brachial Position Sitting Pulse 56 Pulse Source Pulse Oximeter Pulse Oximetry (%) 97 Oxygen Delivery Method Room Air Intake Visit Reasons: R/S from 04/02 per office. Intake Note: ESTABLISHED PATIENT for GERD + IBS mgmt. Chief Complaint; C/O gas persistence despite current therapies. Pt states that she is doing OK with her other medications and adjusts the frequency of the senna PRN. Needs refill of famotidine. Data Administrator Required: No Accompanied by: Self / Same As Patient Allergies azithromycin (Zithromax Z-Jan) Allergy (Unknown, Verified 06/04/25 10:29) hives hydrochlorothiazide Allergy (Unknown, Verified 06/04/25 10:29) low K+ lisinopril Allergy (Unknown, Verified 06/04/25 10:29) cough HPI HPI R/S from 04/02 per office.: Details: LAST VISIT: Diarrhea Hiatal hernia GERD (gastroesophageal reflux disease) Constipation Postprandial abdominal bloating Plan Continue Nexium daily. Avoid dietary triggers and late night snacking. Staying upright for minimal 3 hours after meals discussed with patient. Continue senna as needed. Increase fluid intake and activity to promote better bowel motility. Patient to follow-up in 6 months, sooner on as needed basis. She is agreeable to this plan and verbalizes understanding of instructions. She was given the opportunity to ask questions and all questions answered. ? TODAY'S VISIT Patient is here today for follow-up. Patient reports that she has been doing fairly well. Occasional abdominal bloating and left lower quadrant pain. Patient reports that she is taking Nexium every morning. Reports that her symptoms of acid reflux are suppressed. She takes famotidine as needed if she has symptoms or if she will eat something that might aggravate her stomach. For the most part patient reports that she has been doing well. Denies any dyspepsia, dysphagia or odynophagia. Patient reports that she is doing better with her bowel movements. Takes Senokot daily. Patient does reports to have occasional diarrhea and left lower quadrant pain. Patient denies melena, hematochezia, unintentional weight loss or ribbon like stools. [facility] Medical History Seymour esophagus Chronic nasal congestion Lipid disorder Vitamin D deficiency Back pain, chronic Environmental allergies Depression, major, recurrent Hypertension, essential Chronic vertigo Surgical History Hx of colonoscopy History of esophagogastroduodenoscopy (EGD) Endometrial cyst of ovary History of tonsillectomy History of removal of skin mole Family History Father No problems noted. Mother HTN (hypertension) Brother No problems noted. Brother No problems noted. Sister No problems noted. Son No problems noted. Social History Housing: House Patient Tobacco Use Status: Former Tobacco user e-Cigarette/Vaping Use: Never Used Current occupational status: employed Cognitive needs: No Hearing needs: No Vision needs: Yes Review of Systems Const Denies weight gain and Denies weight loss ENT Reports no additional complaints, Denies dysphagia and Denies odynophagia Card Reports no additional complaints Resp Reports no additional complaints GI Reports abdominal pain (LLQ), Denies belching, Denies melena, Reports bloating, Denies change in bowel habits, Reports constipation, Denies dysphagia, Denies excessive flatus, Denies dyspepsia, Denies heartburn, Denies diarrhea, Denies loose stools, Denies nausea, Denies odynophagia and Denies vomiting Reports no additional complaints Musc Reports no additional complaints Neuro Reports no additional complaints Psych Reports no additional complaints Endo Reports no additional complaints Physical Exam Vital Signs: BMI result Body Mass Index 28.0 Const General: healthy appearing, no acute distress and well developed Nutritional Appearance: well nourished Orientation/consciousness: patient oriented x3 Resp Effort & Inspection: normal respiratory effort, able to speak in complete sentences, no tracheal deviation and symmetric chest movement Auscultation: clear to auscultation bilaterally Cardio Rate: regular rate GI Inspection: Yes normal to inspection and No distended Palpation (GI): Soft to palpation, not firm, nontender and No hepatosplenomegaly present Auscultation: normal bowel sounds General: Yes no CVA tenderness Back/Spine/Pelvis Back: no CVA tenderness Skin General skin exam: elasticity normal, turgor normal and dry skin Neuro General: patient oriented x3 Psych Appearance: grossly normal Mental Status: mental status grossly normal Assessment & Plan Assessment & Plan (1) Diarrhea: Code(s): R19.7 - Diarrhea, unspecified Category: Medical Qualifiers: Diarrhea type: functional diarrhea Qualified Code(s): K59.1 - Functional diarrhea (2) Hiatal hernia: Code(s): K44.9 - Diaphragmatic hernia without obstruction or gangrene Category: Medical (3) Gastroesophageal reflux disease: Code(s): K21.9 - Gastro-esophageal reflux disease without esophagitis Qualifiers: Esophagitis presence: esophagitis presence not specified Qualified Code(s): K21.9 - Gastro-esophageal reflux disease without esophagitis (4) Constipation: Code(s): K59.00 - Constipation, unspecified Qualifiers: Constipation type: slow transit constipation Qualified Code(s): K59.01 - Slow transit constipation (5) Postprandial abdominal bloating: Code(s): R14.0 - Abdominal distension (gaseous) Plan Continue current treatment with Nexium in the morning. May take famotidine as needed. However discussed with patient the importance of avoiding dietary triggers and late night snacking. Staying upright for a minimum 3 hours after meals discussed with patient. Continue senna. Patient may take fibers with pre and probiotic. Follow-up in 6 months, sooner on as needed basis. Patient is agreeable to this plan and verbalizes understanding of instructions. She was given the opportunity to ask questions and all questions answered. Thank you for allowing me to participate in her care Medications: Refilled famotidine 40 mg PO BEDTIME PRN 30 tabs 3RF acid reflux K21.9 - Gastro-esophageal reflux disease without esophagitis esomeprazole magnesium 40 mg PO DAILY 90 caps 0RF K21.9 - Gastro-esophageal reflux disease without esophagitis Coding Level of Care Code Est Pt Level 3 (98157) Diagnoses Functional diarrhea K59.1 Diarrhea type: functional diarrhea Hiatal hernia K44.9 Gastroesophageal reflux disease, unspecified whether esophagitis present K21.9 Esophagitis presence: esophagitis presence not specified Slow transit constipation K59.01 Constipation type: slow transit constipation Postprandial abdominal bloating R14.0 Time Spent (min) 25 Comment 15 minutes spent with patient and additional 10 minutes spent reviewing her records
[2025-06-04 10:17] VITALS: BP 104/58; PULSE 56; O2SAT 97; BMI 28.0
== END 2025-06-04 10:50 | disposition home or self-care (01) ==
LOC: HO.HGI 10:11
PROVIDERS: PCP Internal Medicine; Visit Provider Nurse Practitioner Family
DX: K59.1 Functional diarrhea (principal); K44.9 Diaphragmatic hernia without obstruction or gangrene; K21.9 Gastro-esophageal reflux disease without esophagitis; K59.01 Slow transit constipation; R14.0 Abdominal distension (gaseous)
CPT/HCPCS: 99213

== ENCOUNTER → 2025-06-04 10:10 | Outpatient (BNVA) | payer MEDICARE, SELFPAY | PROVIDERS: PCP Internal Medicine; Visit Provider Nurse Practitioner Family | DX: R14.0 Abdominal distension (gaseous) (principal); K44.9 Diaphragmatic hernia without obstruction or gangrene; K21.9 Gastro-esophageal reflux disease without esophagitis | CPT/HCPCS: 99212 ==

== ENCOUNTER 2025-06-08 08:11 | Outpatient (AMB) | payer MEDICARE, OTHER, SELFPAY ==
--- NOTE | 2025-06-08 08:22 | A.OFFPC_ITS ---
Vital Signs 06/08/25 08:23 Height 5 ft 1 in Weight 152 lb BMI 28.7 BP 110/70 Blood Pressure Location Lt brachial Position Sitting Pulse 60 Pulse Source Pulse Oximeter Pulse Oximetry (%) 97 Oxygen Delivery Method Room Air Intake Visit Reasons: 4 months f/up Allergies azithromycin (Zithromax Z-Jan) Allergy (Unknown, Verified 06/08/25 08:26) hives hydrochlorothiazide Allergy (Unknown, Verified 06/08/25 08:26) low K+ lisinopril Allergy (Unknown, Verified 06/08/25 08:26) cough Medication List - Last Reconciled 06/08/25 by Janelle Orozco MD amlodipine 10 mg PO DAILY 90 days atenolol 25 mg PO DAILY cetirizine 10 mg PO DAILY 90 days cholecalciferol (vitamin D3) (Vitamin D3) 25 mcg PO DAILY escitalopram oxalate 10 mg PO DAILY esomeprazole magnesium 40 mg PO DAILY famotidine 40 mg PO BEDTIME PRN losartan 100 mg PO DAILY lovastatin 20 mg PO DAILY 90 days meclizine 12.5 mg PO ONCE 90 days sennosides (senna) 8.6 mg PO BEDTIME simethicone 80 mg PO TID-QID PRN sumatriptan succinate 50 mg PO ONCE PRN 90 days Tobacco use date assessed: 07/10/24 Fall risk assessment: 1 Fall in past year Last assessed Fall Risk: 06/08/25 Dental Screening Dental Screen Date: 07/10/24 HPI 4 months f/up HPI Details History of Present Illness The patient is a 70 year old female presenting with a regular follow-up appointment. Hypertension: - The patient's blood pressure is well-c ontrolled with a reading of 110/70. - She is managed on amlodipine 10 mg, at enolol 25 mg, and losartan 100 mg. Allergies: - The patient reports current stuffiness , which she attributes to the weather and her forced hot water heating system. - She denies any associated cough. - She takes cetirizine 10 mg regularly f or her allergies. Anxiety and Mood: - The patient reports her mood and anxie ty are okay. - She is taking Lexapro 10 mg. Gastrointestinal Issues: - The patient is taking a PPI and famoti dine for heartburn, as prescribed by her electrochemist. - She denies constipation and reports ta nicolasa Senna. Hyperlipidemia: - She is on lovastatin 20 mg for managem ent. Headaches: - The patient reports she has not had he adaches recently and has not used her prescribed sumatriptan. Musculoskeletal and Vascular: - The patient notes that her ankle swell ing has decreased, which she thinks may be due to the colder weather. - She continues to experience cramping i n her legs, which occurs when sitting or lying on one side while sleeping. - She was previously taking magnesium fo r this, which was helpful. - She reports having a fall a few weeks ago while moving a gas blower but did not sustain any injuries and was not lightheaded. Preventative Care: - The patient received a flu shot and romero bsequently developed a self-limiting chest cold. - She also received her first shot of sh ingles vaccine. - Her last blood test was in January, [facility] showed normal CBC, metabolic profile, kidney functions, and liver enzymes. Medical History: - Hypertension, managed with medication. - Allergies, managed with cetirizine. - Anxiety, managed with Lexapro. - Gastroesophageal reflux disease, manag ed under gastroenterology care. - Hyperlipidemia, managed with lovastati n. - Constipation, managed with Senna. - Headaches, with as-needed sumatriptan. - History of a fall a few weeks ago with out injury. Medications: - Amlodipine 10 mg for hypertension. - Atenolol 25 mg for hypertension. - Cetirizine 10 mg for allergies. - Vitamin D. - Lexapro 10 mg for anxiety/mood. - PPI (unspecified) for heartburn. - Famotidine for heartburn. - Losartan 100 mg for hypertension. - Lovastatin 20 mg for hyperlipidemia. - Senna for constipation. - Sumatriptan as needed for headaches. Diagnostic Results: - Blood test (January): CBC, metabolic pr ofile, kidney functions, and liver enzymes were all within normal limits. Problem List - Hypertension - Allergies - Anxiety - Gastroesophageal reflux disease - Hyperlipidemia - Constipation - Headaches - Peripheral edema - Muscle cramps - History of fall - Preventative care: Follow-up visit and routine lab work Plan - An order for a new blood test has been placed, and the patient can have it done at her convenience as she is due for it. - Recommended restarting magnesium glyci chandrakant for leg cramps, as it was previously helpful. - Advised the patient to be careful to p revent future falls. - The patient will follow up in [facility] three to four months. - continue meds Review of Systems - General: No fever no chills - Neurological: No headaches no dizziness - Ear nose throat: No sore throat no hearing difficulty no ear pain - Cardiovascular: No syncope, no chest pain, no palpitations - Gastrointestinal: No nausea vomiting or diarrhea - Endocrine: No polyuria polydipsia no heat intolerance - Genitourinary: No dysuria , no blood in urine Physical Exam General: No acute distress HEENT: No acute findings Neck: Supple Respiratory system: Able to talk in full sentences, no audible wheeze Cardiovascular: S1-S2 regular in rate and rhythm Gastrointestinal: No pain Extremities: No new findings 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 Mother HTN (hypertension) Brother No problems noted. Brother No problems noted. Sister No problems noted. Son No problems noted. Social History Housing: House Patient Tobacco Use Status: Former Tobacco user e-Cigarette/Vaping Use: Never Used Current occupational status: employed Cognitive needs: No Hearing needs: No Vision needs: Yes Questionnaire Thrive Questionnaire Date Thrive assessed: 07/10/24 I am a: Patient What is your living situation today?: I have a steady place to live Within the past 12 months, did the food you bought not last and you didn't have the money to get more?: Never true Within the past 12 months, did you worry whether your food would run out before you got money to buy more?: Never true Do you have trouble paying for medicines?: No Do you have trouble getting transportation to medical appointments?: No Do you have trouble paying your heating and electricity bill?: No Do you have trouble taking care of your child, family member or friend?: No Do you have trouble with day-to-day activities such as bathing, preparing meals, shopping, managing finances, etc.?: No Are you currently unemployed and looking for a job?: No Are you interested in more education?: No Please select the resources that you would like help with: None Currently or been in a relationship where the following occur: No concerns reported THRIVE Score: 0 ROOPA-7 AMB Questionnaire ROOPA-7 Date ROOPA - 7 assessed: 07/10/24 Source: Developed by Drs. Saw Zavaleta, Karen Arellano, Ferny Gonzalez and colleagues, with an educational aisha from [employer]. Physical exam (Primary Care) Vital Signs: Last Vital Signs Pulse 60 06/08/25 08:23 BP 110/70 06/08/25 08:23 Pulse Ox 97 06/08/25 08:23 Oxygen Delivery Method Room Air 06/08/25 08:23 BMI result Body Mass Index 28.7 Tobacco/Smoking Status: Tobacco use Status Tobacco use date assessed 07/10/24 06/08/25 08:23 Patient Tobacco Use Status Former Tobacco user 06/08/25 08:23 e-Cigarette/Vaping Use Never Used 06/08/25 08:23 Thrive Assessment: Date of Thrive Assessment Date Thrive assessed 07/10/24 06/08/25 08:23 Currently or been in a relationship where the following occur: No concerns reported Coding Level of Care Code Est Pt Level 4 (45125) Add On Problem Visit Only Diagnoses Hypertension, essential I10 Anxiety, generalized F41.1 Recurrent major depressive disorder, in full remission F33.42 Active/Remission status: in full remission Environmental allergies Z91.09 Chronic midline low back pain without sciatica M54.50; G89.29 Back pain laterality: midline Sciatica presence: without sciatica Bilateral leg cramps R25.2 Hiatal hernia K44.9 Gastroesophageal reflux disease without esophagitis K21.9 Esophagitis presence: without esophagitis Lipid disorder E78.9 Headache syndrome G44.89 Edema of lower extremity due to peripheral venous insufficiency I87.2 Assessment & Plan Assessment & Plan (1) Hypertension, essential: Code(s): I10 - Essential (primary) hypertension Category: Medical (2) Anxiety, generalized: Code(s): F41.1 - Generalized anxiety disorder Category: Medical (3) Depression, major, recurrent: Code(s): F33.9 - Major depressive disorder, recurrent, unspecified Category: Medical Qualifiers: Active/Remission status: in full remission Qualified Code(s): F33.42 - Major depressive disorder, recurrent, in full remission (4) Environmental allergies: Code(s): Z91.09 - Other allergy status, other than to drugs and biological substances Category: Medical (5) Chronic low back pain: Code(s): M54.50 - Low back pain, unspecified; G89.29 - Other chronic pain Category: Medical Qualifiers: Back pain laterality: midline Sciatica presence: without sciatica Qualified Code(s): M54.50 - Low back pain, unspecified; G89.29 - Other chronic pain (6) Bilateral leg cramps: Code(s): R25.2 - Cramp and spasm Category: Medical (7) Hiatal hernia: Code(s): K44.9 - Diaphragmatic hernia without obstruction or gangrene Category: Medical (8) Gastroesophageal reflux disease: Code(s): K21.9 - Gastro-esophageal reflux disease without esophagitis Qualifiers: Esophagitis presence: without esophagitis Qualified Code(s): K21.9 - Gastro-esophageal reflux disease without esophagitis (9) Lipid disorder: Code(s): E78.9 - Disorder of lipoprotein metabolism, unspecified Category: Medical (10) Headache syndrome: Code(s): G44.89 - Other headache syndrome Category: Medical (11) Edema of lower extremity due to peripheral venous insufficiency: Code(s): I87.2 - Venous insufficiency (chronic) (peripheral) Category: Medical Plan Problem List - Hypertension - Allergies - Anxiety - Gastroesophageal reflux disease - Hyperlipidemia - Constipation - Headaches - Peripheral edema - Muscle cramps - History of fall - Preventative care: Follow-up visit and routine lab work Plan - An order for a new blood test has been placed, and the patient can have it done at her convenience as she is due for it. - Recommended restarting magnesium glycinate for leg cramps, as it was previously helpful. - Advised the patient to be careful to prevent future falls. - The patient will follow up in approximately three to four months. - continue meds Orders: Orders Lipid Panel Today F33.42 - Major depressive disorder, recurrent, in full remission, F41.1 - Generalized anxiety disorder, G89.29 - Other chronic pain, I10 - Essential (primary) hypertension, M54.50 - Low back pain, unspecified, R06.00 - Dyspnea, unspecified, R25.2 - Cramp and spasm, Z91.09 - Other allergy status, other than to drugs and biological substances Complete Blood Count Auto Diff Today F33.42 - Major depressive disorder, recurrent, in full remission, F41.1 - Generalized anxiety disorder, G89.29 - Other chronic pain, I10 - Essential (primary) hypertension, M54.50 - Low back pain, unspecified, R06.00 - Dyspnea, unspecified, R25.2 - Cramp and spasm, Z91.09 - Other allergy status, other than to drugs and biological substances Comprehensive [place]. Panel Fast Today F33.42 - Major depressive disorder, recurrent, in full remission, F41.1 - Generalized anxiety disorder, G89.29 - Other chronic pain, I10 - Essential (primary) hypertension, M54.50 - Low back pain, unspecified, R06.00 - Dyspnea, unspecified, R25.2 - Cramp and spasm, Z91.09 - Other allergy status, other than to drugs and biological substances
[2025-06-08 08:23] VITALS: BP 110/70; PULSE 60; O2SAT 97; BMI 28.7
== END 2025-06-08 08:43 | disposition home or self-care (01) ==
LOC: HO.HMCC 08:12
PROVIDERS: PCP Internal Medicine; Visit Provider Internal Medicine
DX: I10 Essential (primary) hypertension (principal); F41.1 Generalized anxiety disorder; F33.42 Major depressive disorder, recurrent, in full remission; Z91.09 Other allergy status, other than to drugs and biological substances; M54.50 Low back pain, unspecified; G89.29 Other chronic pain; R25.2 Cramp and spasm; K44.9 Diaphragmatic hernia without obstruction or gangrene; K21.9 Gastro-esophageal reflux disease without esophagitis; E78.9 Disorder of lipoprotein metabolism, unspecified; G44.89 Other headache syndrome; I87.2 Venous insufficiency (chronic) (peripheral)

== ENCOUNTER → 2025-06-08 08:11 | Outpatient (BNVA) | payer MEDICARE, SELFPAY | PROVIDERS: PCP Internal Medicine; Visit Provider Internal Medicine | DX: I10 Essential (primary) hypertension (principal); F41.1 Generalized anxiety disorder; F33.42 Major depressive disorder, recurrent, in full remission; M54.50 Low back pain, unspecified; G89.29 Other chronic pain; R25.2 Cramp and spasm; K21.9 Gastro-esophageal reflux disease without esophagitis; K44.9 Diaphragmatic hernia without obstruction or gangrene; G44.89 Other headache syndrome; I87.2 Venous insufficiency (chronic) (peripheral); Z91.09 Other allergy status, other than to drugs and biological substances | CPT/HCPCS: 99212 ==